=== PATIENT | female | born 1940 | race Caucasian/White ===

== ENCOUNTER 2023-08-13 15:28 | Emergency (ER) | payer OTHER, SELFPAY ==
[2023-08-13 15:43] VITALS: BP 190/85
--- NOTE | 2023-08-13 17:11 | ED.GENMED ---
History of Present Illness
General
Chief Complaint: Skin Surface Trauma
Source: patient
Exam Limitations: none
Time Seen by Provider: 08/13/23 16:47
Nursing documentation reviewed up to this point in time: agreed with
Travel History
Have you had any contact with someone who has COVID-19?: No
Do you have any symptoms of coronavirus? Fever > 100 degrees, chills, cough, shortness of breath, sore throat, loss of taste or smell, muscle aches, or headache?: No
History of Present Illness
History of Present Illness:
pt is a 83 y/o F with h/o lymphedema, dvt, on eliquis
here with right lower leg laceration a few hours ago when she scraped her leg getting into the car
she has a laceration to the lower leg that was oozing because ofthe edema
she went to urgent care where they said they were worried about closing it causing more oozing and bleeding becuase o maximino thinners and sent her here
tetanus is unknown
no pain
bleeding controlled now
Past History
Past History
ED Past Medical History: Arrthythmia, HTN and Hypothyroidism
Social History
Tobacco: Non-smoker
Alcohol: None
Drug: None
Personal:
Living: alone
Review of Systems
Review of Systems
Allergies reviewed?: Yes
All Other Systems: Not applicable
Phy Exam
Physical Exam
Physical Exam:
GENERAL: Alert , in no apparent distress
CARDIAC: Regular rate and rhythm lymphedema b/l LE;
LUNGS: Clear breath sounds bilaterally, no acute respiratory distress, no wheezes/rales/rhonchi
ABDOMEN: Soft, without focal tenderness, no r/g, no cvat
NEUROLOGICAL: Alert and oriented, no focal neuro deficits, CN intact, 5/5 strength, sensation intact
SKIN: Warm and dry,
arc shaped laceratino to righ tlower leg anterior approx 4 cm no bleeding
MUSCULOSKELETAL: lymph edema, well perfused.
PSYCH: Normal and appropriate interaction.
Course
Orders/Labs/Results
Orders:
Orders
08/13/23 17:08
Tetanus/Diphth/Acelpertussis [Adacel] 0.5 ml IM .ONCE ONE
Vital Signs
Initial and Last Documented VS:
Initial Vital Signs
Temp Pulse Resp BP Pulse Ox
98.2 F 78 20 190/85 98
08/13/23 15:43 08/13/23 15:43 08/13/23 15:43 08/13/23 15:43 08/13/23 15:43
Last Documented Vital Signs
Temp Pulse Resp BP Pulse Ox
98.2 F 78 20 190/85 98
08/13/23 15:43 08/13/23 15:43 08/13/23 15:43 08/13/23 15:43 08/13/23 15:43
Procedures
Laceration Closure
Right Lower Leg:
Status of Wound: clean
Description of Wound Edges: sharp and flap-poorly vascularized
Preparation: cleaned with saline
Anesthesia: 1% Lidocaine with epi
Revision/Debridement: routine- no revision
Type of Closure: single layer closure
Skin Closure Material: 5-0 nylon
Number of sutures: 8
MDM/Problems Addressed
Differential Diagnosis Includes:
laceration, contusion, lymphedema
MDM/Problems Addressed:
83 y/o F with right lower extremity laceration from a door today
had some bleeding and leakage from the leg; controlled
pt was sent by because they were concerned about pt's potential bleeding because of thinners
pt's wound cleaned, anesthetized and closed with sutures
she did tolerate well
no post procedure bleeding
but given her lymphedema, i did put a koban dressing on it to be left on for 1 hour and then remove at home
f/u wound center as needed
high risk for poor healing because of her lypmhedema,.
*Critical Care Note
Total Time (30-74mins, 75-104mins- exclusive of procedures): Not Applicable
ED Attending Note
-
Portions of this chart may have been created with voice recognition software.� Occasional wrong word or��sound alike� substitutions may have occurred due to the inherent limitations of voice recognition software.
Discharge Plan
Departure
Patient Disposition: Home (Routine Discharge)
Date of Disposition: 08/13/23
Time of Disposition: 17:51
Patient with high blood pressure during this ER visit?: Yes
Condition: Fair
Covid-19: Not Applicable
Discharge Problem:
Laceration of leg
Instructions: Laceration Repair With Stitches (DC), BLOOD PRESSURE
Prescriptions:
No Action
polyethylene glycol 3350 [Miralax] 17 gram Powder In Packet
8.5 g PO DAILY
clonazepam 1 mg Tablet
1 mg PO HS
atenolol 25 mg Tablet
12.5 mg PO DAILY
hydralazine 25 mg Tablet
25 mg PO BID
acetaminophen 500 mg Tablet
1,000 mg PO Q6H PRN (Reason: leg PAIN)
levothyroxine 75 mcg Tablet
75 mcg PO DAILY AT 0700
fenofibrate 160 mg Tablet
160 mg PO DAILY
cholecalciferol (vitamin D3) [Vitamin D3] 125 mcg (5,000 unit) Tablet
125 mcg PO TH
Eliquis 2.5 mg Tablet
2.5 mg PO BID
[place] Tears
1 drp BOTH EYES HS
nifedipine 30 mg Tablet Extended Release
30 mg PO BID Qty: 60 0RF
furosemide [Lasix] 20 mg Tablet
20 mg PO DAILY
therapeutic multivitamin Tablet
1 tab PO DAILY
lovastatin 10 mg Tablet
10 mg PO DAILY
Referrals:
Topkis,Owen L., DO [Family Provider] - Follow up in 10 days (SUTURE REMOVAL IN 10-14 DAYS)
Activity Restrictions/Additional Instructions:
KEEP THE WOUND CLEAN AND DRY FOR 48 hours
AFTER THAT YOU CAN GET IT WET IN THE BATH/SHOWER ONCE A DAY AND MAKE SURE IT IS CLEAN AND THERE IS NO DRIED BLOOD ON THE STITCHES
APPLY NEOSPORIN AND A BANDAID
THE STITCHES NEED TO BE REMOVED IN ABOUT 10-14 DAYS, SEE YOUR DOCTOR FOR THIS.
THE LAST DAY BEFORE STITCHES OUT, NO OINTMENT, LEAVE OPEN TO AIR
WATCH FOR SIGNS OF INFECTION AND RETURN NEEDED FOR PAIN, SWELLING, REDNESS, DRAINAGE, BLEEDING.
TYLENOL NEEDED FOR PAIN.
Interventions
Interventions:
*Risk Screen - Suicide Last Done: 08/13/23 15:43
*General Assessment Last Done: 08/13/23 15:43
*Neglect/Abuse Screening Last Done: 08/13/23 15:43
*ED COVID-19 Vaccine History Last Done: 08/13/23 17:55
*Nursing Disposition Last Done: 08/13/23 18:49
ED-Skin Assessment Last Done: 08/13/23 16:46
Discharge Date and Time
Discharge Date/Time: 08/13/23 18:50
[2023-08-13] MEDS: ADACEL 0.5 ML IM (18:05)
== END 2023-08-13 18:50 | disposition home or self-care (01) ==
LOC: EMR 15:28
PROVIDERS: EMERGENCY PHYSICIAN Student in an Organized Health Care Education/Training Program; FAMILY PHYSICIAN Family Medicine
DX: S81.811A Laceration without foreign body, right lower leg, initial encounter (principal); W22.8XXA Striking against or struck by other objects, initial encounter; Z79.01 Long term (current) use of anticoagulants; Z23 Encounter for immunization
CPT/HCPCS: 99281; 90471; 90715

== ENCOUNTER 2024-03-27 22:59 | Inpatient (IN) | payer OTHER, SELFPAY ==
[2024-03-27 18:23] VITALS: BMI 43.9
--- NOTE | 2024-03-27 19:17 | ED.GENMED ---
History of Present Illness
<Hailey Duron MD, Resident - Last Filed: 03/27/24 21:31>
General
Chief Complaint: Weakness
Source: patient
Time Seen by Provider: 03/27/24 18:40
History of Present Illness
History of Present Illness:
Patient is an 83 yo female with PMH of PE on presenting with increasing weakness and shakiness after having flu and COVID shot on Friday. She also c/o feeling drowsy since. Patient mentions she had difficulty getting her feet of the
ground when walking with cane. Denies fever, cough, SOB or CP. Denies any GI symptoms. Denies urinary symptoms. Appetite is normal and she is drinking sufficient liquids but states she had similar symptoms in the past when she was found to be
dehydrated. Denies headaches. Denies lightheadedness.
She was diagnosed with hypothyroidism last February but has not been taking medications.
Past History
<Hailey Duron MD, Resident - Last Filed: 03/27/24 21:31>
Past History
ED Past Medical History: HTN, Hypothyroidism and Other (history of DVT and P/E in past, pre-diabetic, lymphedema)
Social History
Tobacco: Non-smoker
Alcohol: None
Drug: None
Personal:
Living: alone
Review of Systems
<Hailey Duron MD, Resident - Last Filed: 03/27/24 21:31>
Review of Systems
Allergies reviewed?: Yes
All Other Systems: ROS reviewed and negative except as documented in HPI and ROS
Phy Exam
<Hailey Duron MD, Resident - Last Filed: 03/27/24 21:31>
General Physical Exam
General Presentation: mild distress
Cardiovascular Exam
Cardiovascular Exam: regular rate/rhythm, no JVD and no murmur
Pulmonary Exam
Pulmonary Exam: lungs clear, no respiratory distress, no crackles and no wheezing
Gastrointestinal Exam
Gastrointestinal Exam: normal bowel sounds, non tender, soft and non distended
Neurological Exam
Neurological Exam: alert and oriented x3
Musculoskeletal Exam
Musculoskeletal Exam: edema (chronic lymphedema) and other (no signs of acute cellulitis)
Course
<Hailey Duron MD, Resident - Last Filed: 03/27/24 21:31>
Orders/Labs/Results
Orders:
Orders
03/27/24 19:35
0.9% Sodium Chloride 500 ml [Nss] 500 ml IV BOLUS
03/27/24 19:49
Complete Blood Count/With Diff Urgent
Comprehensive Metabolic Panel Urgent
Free T4 Urgent
TSH Reflex To Free T4 Urgent
03/27/24 20:02
Lactic Acid Urgent
Blood Culture Routine
SKIP Source: Blood/Venous
Specimen Description:
Blood Culture Urgent
SKIP Source: Blood/Venous
Specimen Description:
Abnormal Lab Results
03/27/24
19:49
Hgb 11.3 L g/dL
(12.0-16.0)
Hct 34.8 L %
(37.0-47.0)
MCH 26.8 L pg
(27.0-31.0)
MCHC 32.5 L g/dL
(33.0-37.0)
RDW 15.3 H %
(11.5-14.5)
MPV 12.1 H fL
(7.4-10.4)
BUN 67 H mg/dl
(7-17)
Creatinine 1.8 H mg/dL
(0.6-1.0)
Calcium 10.6 H mg/dl
(8.4-10.2)
AST 45 H U/L
(14-36)
TSH (Reflex) 0.15 L uIU/ml
(0.47-4.68)
03/27/24 19:49
03/27/24 19:49
Vital Signs
Temp: 92.5 F (rectal)
Pulse: 62
Resp Rate: 20
Initial and Last Documented VS:
Initial Vital Signs
Pulse Resp Pulse Ox
62 20 99
03/27/24 19:20 03/27/24 19:20 03/27/24 19:20
Last Documented Vital Signs
Temp Pulse Resp BP Pulse Ox
92.5 F L 55 17 159/54 95
03/27/24 19:58 03/27/24 21:15 03/27/24 20:45 03/27/24 21:00 03/27/24 21:15
<Shawn Connell, DO - Last Filed: 03/27/24 21:56>
Orders/Labs/Results
Orders:
Orders
03/27/24 19:35
0.9% Sodium Chloride 500 ml [Nss] 500 ml IV BOLUS
03/27/24 19:49
Complete Blood Count/With Diff Urgent
Comprehensive Metabolic Panel Urgent
Free T4 Urgent
TSH Reflex To Free T4 Urgent
03/27/24 20:02
Lactic Acid Urgent
Blood Culture Routine
SKIP Source: Blood/Venous
Specimen Description:
Blood Culture Urgent
SKIP Source: Blood/Venous
Specimen Description:
Abnormal Lab Results
03/27/24
19:49
Hgb 11.3 L g/dL
(12.0-16.0)
Hct 34.8 L %
(37.0-47.0)
MCH 26.8 L pg
(27.0-31.0)
MCHC 32.5 L g/dL
(33.0-37.0)
RDW 15.3 H %
(11.5-14.5)
MPV 12.1 H fL
(7.4-10.4)
BUN 67 H mg/dl
(7-17)
Creatinine 1.8 H mg/dL
(0.6-1.0)
Calcium 10.6 H mg/dl
(8.4-10.2)
AST 45 H U/L
(14-36)
TSH (Reflex) 0.15 L uIU/ml
(0.47-4.68)
03/27/24 19:49
03/27/24 19:49
Vital Signs
Blood pressure: 173/55
Initial and Last Documented VS:
Initial Vital Signs
Pulse Resp Pulse Ox
62 20 99
03/27/24 19:20 03/27/24 19:20 03/27/24 19:20
Last Documented Vital Signs
Temp Pulse Resp BP Pulse Ox
92.5 F L 55 17 159/54 95
03/27/24 19:58 03/27/24 21:15 03/27/24 20:45 03/27/24 21:00 03/27/24 21:15
<Hailey Duron MD, Resident - Last Filed: 03/27/24 21:31>
*Critical Care Note
Total Time (30-74mins, 75-104mins- exclusive of procedures): 30
ED Attending Note
<Hailey Duron MD, Resident - Last Filed: 03/27/24 21:31>
-
Portions of this chart may have been created with voice recognition software.� Occasional wrong word or��sound alike� substitutions may have occurred due to the inherent limitations of voice recognition software.
<Shawn Connell DO - Last Filed: 03/27/24 21:56>
ED Attending Note
Patient seen and examined by attending physician: Yes
I performed a history and physical exam of patient and discussed management with resident, I reviewed resident's note and agree with documented findings and plan of care.: Yes
ED Attending Note:
I evaluated the patient at bedside. The patient appears generally weak and debilitated. Her white count is normal but she is found to be hypothermic rectally with a temp of 92.5 �F. She states that she feels dehydrated. She was given IV fluids.
Discharge Plan
Departure
Prescriptions:
No Action
polyethylene glycol 3350 [Miralax] 17 gram Powder In Packet
8.5 g PO DAILY
clonazepam 1 mg Tablet
1 mg PO HS
hydralazine 25 mg Tablet
25 mg PO BID
acetaminophen 500 mg Tablet
1,000 mg PO Q6H PRN (Reason: leg PAIN)
levothyroxine 75 mcg Tablet
75 mcg PO DAILY AT 0700
fenofibrate 160 mg Tablet
160 mg PO DAILY
cholecalciferol (vitamin D3) [Vitamin D3] 125 mcg (5,000 unit) Tablet
125 mcg PO TH
Eliquis 2.5 mg Tablet
2.5 mg PO BID
[place] Tears
1 drp BOTH EYES HS
nifedipine 30 mg Tablet Extended Release
30 mg PO BID Qty: 60 0RF
furosemide [Lasix] 20 mg Tablet
20 mg PO DAILY
therapeutic multivitamin Tablet
1 tab PO DAILY
lovastatin 10 mg Tablet
10 mg PO DAILY
Referrals:
UNKNOWN - PT DOES,NOT KNOW [Family Provider] -
Interventions
Interventions:
*General Assessment Last Done: 03/27/24 18:30
ED- Fall Risk Assessment Last Done: 03/27/24 19:32
*ED COVID-19 Vaccine History Last Done: 03/27/24 18:30
ED- Cardiac Assessment Last Done: 03/27/24 19:21
ED- Neurological Assessment Last Done: 03/27/24 19:21
ED- Pulmonary Assessment Last Done: 03/27/24 19:21
Discharge Date and Time
Print Language: [place]
[2024-03-27 20:00] VITALS: BP 165/54
[2024-03-27] MEDS: NSS 500 IV (20:05)
[2024-03-27 20:09] LABS: % Basophils 0.4 % (0-2); % Eosinophils 1.6 % (0-6); % Immature Granulocytes 0.2 % (0-0.5); % Lymphocytes 27.5 % (20.5-51.1); % Monocytes 8.1 % (1.7-9.3); % Neutrophils 62.2 % (42.2-75.2); Absolute Eosinophils 0.1 10^3/uL (0-0.7); Absolute Lymphocytes 1.5 10^3/uL (1.2-3.4); Absolute Monocytes 0.5 10^3/uL (0.1-0.6); Absolute Neutrophils 3.5 10^3/uL (1.4-6.5); Hematocrit 34.8 % (37.0-47.0); Hemoglobin 11.3 g/dL (12.0-16.0); Mean Corp Hgb Conc. 32.5 g/dL (33.0-37.0); Mean Corpuscular Hgb 26.8 pg (27.0-31.0); Mean Corpuscular Volume 82.7 fL (81.0-99.0); Mean Platelet Volume 12.1 fL (7.4-10.4); Nucleated Red Blood Cells % 0 %; Platelet Count 205 10^3/uL (130-400); Red Blood Cell Count 4.21 10^6/uL (4.20-5.40); Red Cell Dist. Width 15.3 % (11.5-14.5); White Blood Cell Count 5.6 10^3/uL (4.8-10.8)
[2024-03-27 20:30] LABS: Lactic Acid 0.8 mmol/L (0.7-2.0)
[2024-03-27 20:32] LABS: ALT (SGPT) 25 U/L (0-35); AST (SGOT) 45 U/L (14-36); Albumin 4.3 g/dl (3.5-5.0); Alkaline Phosphatase 71 U/L (38-126); Blood Urea Nitrogen 67 mg/dl (7-17); Calcium 10.6 mg/dl (8.4-10.2); Carbon Dioxide 25 mmol/L (22-30); Chloride 104 mmol/L (98-107); Estimated Creatinine Clearance 30 ml/min; Glucose 92 mg/dl (70-99); Potassium 4.7 mmol/L (3.5-5.1); Sodium 144 mmol/L (135-145); Total Bilirubin 0.2 mg/dl (0.2-1.3); Total Protein 7.2 g/dl (6.3-8.2); eGFR 27.78
[2024-03-27 21:00] VITALS: BP 159/54
[2024-03-27 21:03] LABS: TSH Reflex To Free T4 0.15 uIU/ml (0.47-4.68)
[2024-03-27 21:48] LABS: Free T4 1.48 ng/dl (0.78-2.19)
[2024-03-27 22:00] VITALS: BP 161/58
[2024-03-27 22:09] LABS: Urine Albumin Negative (Neg - Trace); Urine Bilirubin Negative (Negative); Urine Character Clear (Clear); Urine Color Straw; Urine Glucose Negative (Negative); Urine Ketone Negative (Negative); Urine Leukocyte Negative (Negative); Urine Nitrite Negative (Negative); Urine Occult Blood Negative (Negative); Urine Urobilinogen Negative (Neg - 1+)
--- NOTE | 2024-03-27 22:41 | HPS.HSE ---
Addendum entered and electronically signed by Mega Crisostomo MD 03/27/24 23:16:
Hypercalcemia - asymptomatic
DDX: dehydration, secondary hyperparathyroidism
- IVF
- Observe Ca in AM
Addendum entered and electronically signed by Mega Crisostomo MD 03/27/24 23:06:
As per patient : DNR in the presence of son at bed side
Original Note:
Family Physician
-
Family Physician: NOT KNOW UNKNOWN - PT DOES
Chief Complaint
-
weakness
History of Present Illness
83F DVT and P/E , on Eliquis , pre-diabetic, chr Zelda lymphedema, recent Flu and Covid vax on Wed(03/24/24) seen at ER for
- increasing weakness and chills and rigors
- associated with lethargy
- associated with acute ambulatory dysfunction
Denies fever, cough, SOB or CP. Denies any GI symptoms. Denies urinary symptoms.
Medical History
Past Medical History
Past Medical History: Reports Other (Arrhythmia, HTN and Hypothyroidism, CKD3b, Class III Obesity (BMI 44)HX PE/DVT of Lt Zelda)
Past Surgical History: Reports Other
Social History
Tobacco: Non-smoker
Alcohol: None
Drug: None
Family History
Family History: Not pertinent
Allergies / Home Medications
Allergies reflects when Allergies were last updated in [facility].
Home Medications with original date entered in [facility]
Allergy/Medication List:
Allergies
Allergy/AdvReac Type Severity Reaction Status Date / Time
codeine Allergy Nausea Verified 07/08/23 01:14
ondansetron Allergy Unknown Verified 07/08/23 01:14
Penicillins Allergy Unknown Verified 07/08/23 01:14
prochlorperazine Allergy Unknown Verified 07/08/23 01:14
[From Compazine]
sertraline Allergy Nausea Verified 07/08/23 01:14
Home Medications
[place] Tears 1 drp BOTH EYES HS dry eyes 03/03/23
acetaminophen 500 mg tablet 1,000 mg PO Q6H PRN PAIN 03/03/23
apixaban 2.5 mg tablet (Eliquis) 2.5 mg PO BID Blood Clot Prevention/Tx 03/03/23
atenolol 25 mg tablet 25 mg PO DAILY Blood Pressure 03/03/23
cholecalciferol (vitamin D3) 125 mcg (5,000 unit) tablet (Vitamin D3) 125 mcg PO WEEKLY Supplement 03/03/23
clonazepam 1 mg tablet 1 mg PO HS Mental Health/Anxiety 03/03/23
fenofibrate 160 mg tablet 160 mg PO DAILY High Cholesterol 03/03/23
hydralazine 25 mg tablet 25 mg PO BID Blood Pressure 03/03/23
levothyroxine 75 mcg tablet 75 mcg PO DAILY AT 0700 Thyroid 03/03/23
loratadine 5 mg disintegrating tablet 5 mg PO DAILY Allergies 03/03/23
lovastatin 10 mg tablet 10 mg PO DAILY High Cholesterol 03/03/23
multivitamin with calcium carb and iron tablet 10,000 tab PO DAILY Supplement 03/03/23
kkqejghtkopx-ghvnfhtg-uzlmri tablet 1 tab PO DAILY Supplement 03/03/23
omega-3 fatty acids 1 cap PO DAILY Supplement 03/03/23
polyethylene glycol 3350 17 gram oral powder packet (Miralax) 17 g PO DAILY Constipation 03/03/23
cephalexin 750 mg capsule 750 mg PO BID 4 days #8 caps 03/06/23
furosemide 40 mg tablet (Lasix) 40 mg PO DAILY #5 tabs 03/06/23
nifedipine 30 mg tablet,extended release 30 mg PO BID #60 tabs 03/06/23
Review of Systems
-
Constitutional: Reports See HPI, Fatigue and Chills
EENT: Reports No Symptoms
Respiratory: Reports No Symptoms
Cardiac: Reports No Symptoms
Abdomen/GI: Reports No Symptoms
: Reports No Symptoms
Musculoskeletal: Reports No Symptoms
Skin: Reports See HPI
Neurological: Reports No Symptoms and Weakness
Endocrine: Reports No Symptoms
Hematologic/Lymphatic: Reports No Symptoms
Psych: Reports No Symptoms
Physical Exam
Vital Signs
Vital Signs
Temp Pulse Resp BP Pulse Ox
92.5 F L 55 17 159/54 95
03/27/24 19:58 03/27/24 21:15 03/27/24 20:45 03/27/24 21:00 03/27/24 21:15
Physical Exam
General: Well Developed, Well Nourished and No Apparent Distress
HEENT: NormoCephalic, Moist mucous membranes and Atraumatic
Respiratory: Clear
Cardiac: S1/S2 and Regular Rhythm; No Murmur or Rub
GI: Soft, Non Tender, Non Distended and Normal Bowel Sounds; No Organomegaly
Rectal: Deferred by Provider
Musculoskeletal: No Clubbing, No Cyanosis and Other (chr venous stasis , chr lymphedema )
Skin: No Rash
Neuro: Nonfocal/grossly intact
Psych: Calm
Laboratory Results
-
03/27/24 19:49
03/27/24 19:49
Laboratory Results
Lactic Acid 0.8 mmol/L (0.7-2.0) 03/27/24 20:02
Total Bilirubin 0.2 mg/dl (0.2-1.3) 03/27/24 19:49
AST 45 U/L (14-36) H 03/27/24 19:49
ALT 25 U/L (0-35) 03/27/24 19:49
Alkaline Phosphatase 71 U/L (38-126) 03/27/24 19:49
Data Reviewed
-
Lab Data: Labs Reviewed by me
Old Records: Reviewed
Impression/Plan
-
Vital Signs
Temp Pulse Resp BP Pulse Ox
92.5 F L 55 17 159/54 95
03/27/24 19:58 03/27/24 21:15 03/27/24 20:45 03/27/24 21:00 03/27/24 21:15
Abnormal Lab Results
03/27/24
19:49
Hgb 11.3 L
Hct 34.8 L
MCH 26.8 L
MCHC 32.5 L
RDW 15.3 H
MPV 12.1 H
BUN 67 H
Creatinine 1.8 H
Calcium 10.6 H
AST 45 H
TSH (Reflex) 0.15 L
Last hospitalist admission:
Date of Admission: 07/08/23 -Date of Discharge: 07/14/23
DC Dxs
Hypothermia
Lymphedema
Chronic kidney disease
Ambulatory dysfunction
ASSESSMENT & PLAN
Hypothermia: DDX: SIRS / Sepsis vs Hypothyroid
NEG UA
HX PCN allergy but tolerate IV Cefazolin
- check PCT
- CXR
- BCx sent
- Hold off ABx
- warming blanket
Lethargy suspect encephalopathy - TME
associated with acute gait dysfunction
DDX : infective vs metabolic ( hypothyroid ) vs Clonazepam
- f/u mentation with above mesures
- c/w Clonazepam
- PT/OT weakness weakness, lethargy
- fall precaution
Low TSH . Nl free T4 with sinus joan : Not on BB
DDX: Sick euthyroid vs. untreated hyperthyroid vs overtreated hypothyroid
- FT3
- EKG to evaluate conduction abn
LUIS M - prerenal
HX CKD3b
- avoid NSAIDs and contrast study
HX PE/DVT of Lt Zelda
- On chronic Eliquis
- on Atenolol
will continue low dose Atenolol and follow, though put hold parameters for heart rate
Essential HTN
- c/w Hydralazine
- c/w Atenolol, Procardia
HLD
- on Fenofibrate and Lovastatin
Hypothyroid - Nl TSH
- on LT4
BMI 44 c/w Class III obesity 2/2 protein calorie excess
DVT Px: on chr Eliquis
Full code
IP TLM
[2024-03-27 23:00] VITALS: BP 166/60
[2024-03-27 23:38] LABS: Free T3 2.59 pg/ml (2.77-5.27)
[2024-03-28] VITALS (9 sets, daily range): BP systolic 126–172; BP diastolic 43–105; BMI 42.6
[2024-03-28 00:13] LABS: Procalcitonin < 0.05 ng/ml (0.0-0.25)
--- NOTE | 2024-03-28 00:15 | PTCARENOTE ---
Patient arrived to unit from ED via stretcher, warming blanket in place on patient upon arrival to be connected to warming machine. Patient alert and oriented, c/o chronic back pain that is present at this time with movement from stretcher to bed.
Pulled to bed with assist of 4 person, patient unable to offer assistance in transfer. Face flushed and skin red/warm. Upon arrival to unit, initial rectal temperature 94.0F. Shelby hugger connected and reached goal temperature, now 97.0F rectal, and
warming therapy stopped at 0230AM. Initiated on color television console monitor #13 - HR joan with first degree block present, BBBC, prolonged QT. Patient states all of her family are currently out of town, patient resides in [place] where she lives alone and
called EMS due to progressive weakness and with chills/rigors. Satting well on room air. Connected to [employer], in place from ED -- device changed upon arrival. Patient is verbalizing understanding of call barbosa use, call barbosa in reach, will monitor.
[2024-03-28 04:29] LABS: Hematocrit 31.1 % (37.0-47.0); Hemoglobin 10.4 g/dL (12.0-16.0); Mean Corp Hgb Conc. 33.4 g/dL (33.0-37.0); Mean Corpuscular Hgb 27.5 pg (27.0-31.0); Mean Corpuscular Volume 82.3 fL (81.0-99.0); Mean Platelet Volume 12.2 fL (7.4-10.4); Platelet Count 193 10^3/uL (130-400); Red Blood Cell Count 3.78 10^6/uL (4.20-5.40); Red Cell Dist. Width 15.5 % (11.5-14.5); White Blood Cell Count 3.9 10^3/uL (4.8-10.8)
[2024-03-28 04:56] LABS: ALT (SGPT) 22 U/L (0-35); AST (SGOT) 39 U/L (14-36); Albumin 3.8 g/dl (3.5-5.0); Alkaline Phosphatase 56 U/L (38-126); Blood Urea Nitrogen 61 mg/dl (7-17); Calcium 9.9 mg/dl (8.4-10.2); Carbon Dioxide 25 mmol/L (22-30); Chloride 108 mmol/L (98-107); Estimated Creatinine Clearance 30 ml/min; Glucose 65 mg/dl (70-99); Phosphorus 3.2 mg/dl (2.5-4.5); Potassium 4.7 mmol/L (3.5-5.1); Sodium 146 mmol/L (135-145); Total Bilirubin 0.2 mg/dl (0.2-1.3); Total Protein 6.3 g/dl (6.3-8.2); eGFR 27.78
[2024-03-28 06:30] LABS: Glucose - Point of Care 74 mg/dl (70-99)
--- NOTE | 2024-03-28 06:38 | PTCARENOTE ---
Patient with complaint that legs are numb b/l from the waist down -- patient states this is new for her and that she has not experienced this before. Patient also mentioning that her weakness is more profound. Legs with chronic lymphedema --
baseline per patient. Notified WALKER Sanches -- lab glucose came back at 65, request to check fingerstick glucose that came back at 74. 4 oz juice provided to patient -- will monitor.
--- NOTE | 2024-03-28 07:53 | W.PN.HOSP.TC ---
Today's Communication/Plan
-
MRI of the brain. CT of the head.
Assessment / Plan
Assessment / Plan
Physical exam:
General: Acute on chronically ill
HEENT: Normocephalic, Atraumatic and Moist Mucous Membranes
Respiratory: Clear to Auscultation; Negative Wheezes, Rales or Rhonchi
Cardiac: Regular Rhythm and S1/S2
GI: Soft, Nontender and Nondistended
Musculoskeletal: Lower back tenderness. No Clubbing, No Cyanosis and No Edema
Neuro: Awake, Alert and Oriented, significantly decreased lower extremity strength.
Psych: Calm
A/P:
Hypothermia:
Improved
Thyroid function abnormal but less likely contributing.
Blood sugar relatively low earlier this morning so could have been contributing.
No signs of infection but follow-up blood cultures
Updated [id number] over the phone today
Lower extremity weakness and back pain:
Unclear if related to recent vaccination vs deconditioning and meds vs ??stroke
Plan for lumbar MRI and ct head
Will request neurology consult for further advice
Toxic metabolic encephalopathy:
Improving
Okay to continue using benzodiazepines judiciously
LUIS M on CKD stage IIIb:
Might need fluids but hold off for now
Encourage oral intake
Nephrology eval
History of VTE:
Continue Eliquis
Hypertension:
Resume antihypertensives
Monitor blood pressure and adjust medications accordingly
Hyperlipidemia:
Continue home statins
Hypothyroidism:
Reduced thyroid dose given low TSH
Recheck TFT in 6 weeks
Obesity:
Lifestyle changes modification
DVT prophylaxis:
Eliquis
CODE STATUS:
DNR
Total time spent on today's encounter was 52 minutes which included time spent in counseling the patient/family regarding diagnosis and treatment plan as listed above, goals of care, and symptom management. Case was discussed with nursing staff,
specialists, and care coordinators/case management. All labs and imaging personally reviewed by me. Remainder the time spent in detailed review of previous records, lab data, imaging, and other medical provider documentation.
Anticipated Discharge: 24 - 48 hours
Subjective/Interval History
-
Date of Service: March 28, 2024
She is alert and able to answer all questions appropriately. Patient complains of profound lower extremity weakness and lower back pain as well. She had some urinary incontinence. Afebrile. Temperature improved.
Objective Data
-
Labs:
Laboratory Results
03/27/24 03/28/24
19:49 04:06
WBC 5.6 3.9 L
Hgb 11.3 L 10.4 L
Hct 34.8 L 31.1 L
Plt Count 205 193
Sodium 144 146 H
Potassium 4.7 4.7
Chloride 104 108 H
Carbon Dioxide 25 25
BUN 67 H 61 H
Creatinine 1.8 H 1.8 H
Glucose 92 65 L
Calcium 10.6 H 9.9
Total Bilirubin 0.2 0.2
AST 45 H 39 H
ALT 25 22
Alkaline Phosphatase 71 56
Vital Signs:
Vital Signs
Temp Pulse Resp BP Pulse Ox
97.0 F 72 14 161/65 95
03/28/24 03:29 03/28/24 03:29 03/28/24 03:29 03/28/24 03:29 03/28/24 03:29
I&O
03/27/24 03/28/24 03/29/24
06:59 06:59 06:59
Output Total 975 / 975
Balance -975 / -975
[2024-03-28] MEDS: TRICOR 145 MG PO (09:02)
[2024-03-28] MEDS: ELIQUIS 2.5 MG PO ×2 (09:03→21:21)
[2024-03-28] MEDS: MIRALAX 8.5 GRAMS PO (09:03)
[2024-03-28] MEDS: SYNTHROID 50 MCG PO (09:03)
[2024-03-28] MEDS: PROCARDIA XL (EXTENDED RELEASE) 30 MG PO ×2 (09:03→21:21)
[2024-03-28] MEDS: LIPITOR 10 MG PO (09:05)
--- NOTE | 2024-03-28 10:44 | W.CON.NEPH ---
Consultation
-
Date/Time Consultation Requested: 03/28/2024 9 AM
Date/Time Consultation Performed: 03/28/2020 4:10 AM
Requesting Provider: Dr. Crisostomo
Performing Provider: Dr. Verma
Reason for Consultation: LUIS M
Medical History
-
Chief Complaint: Weakness tremor
History of Present Illness:
This is an 83-year-old female with paroxysmal atrial fibrillation on Eliquis therapy for anticoagulation, hypertension on a multidrug regimen, hypothyroidism on Synthroid therapy. She has been in her usual state of health and stable until last week
around Friday when she received both the flu and the COVID-vaccine. The day after her vaccine she developed rigors back pain and tremors. This apparently worsened over the course of the week. Her oral intake was ultimately impacted by this as
well. She did not eat very much yesterday and slightly less the day before that. She ultimately came to the emergency room because of the tremors and weakness. She was noted to have mild acute kidney injury with a creatinine of 1.8 up from her
baseline of 1.6. 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
Past Medical History
Atrial fibrillation, hypertension, hypothyroidism, CKD 3B, obesity, history of PE DVT left lower leg
Social History
Tobacco: Non-Smoker
Alcohol: None
Family History
Family History: Not Pertinent
Allergies / Home Medications
Allergy/AdvReac Type Severity Reaction Status Date / Time
codeine Allergy Nausea Verified 08/13/23 15:43
erythromycin base Allergy Unknown Verified 03/27/24 18:34
ondansetron Allergy Unknown Verified 08/13/23 15:43
Penicillins Allergy Unknown Verified 08/13/23 15:43
prochlorperazine Allergy Unknown Verified 08/13/23 15:43
[From Compazine]
sertraline Allergy Nausea Verified 08/13/23 15:43
�Medication �Instructions �Recorded �Confirmed �Type
[place] Tears 1 drp BOTH EYES HS dry eyes 03/03/23 03/27/24 History
acetaminophen 500 mg tablet 1,000 mg PO Q6H PRN leg PAIN 03/03/23 03/27/24 History
apixaban 2.5 mg tablet (Eliquis) 2.5 mg PO BID Blood Clot 03/03/23 03/27/24 History
Prevention/Tx
cholecalciferol (vitamin D3) 125 125 mcg PO TH Supplement 03/03/23 03/27/24 History
mcg (5,000 unit) tablet (Vitamin
D3)
clonazepam 1 mg tablet 1 mg PO HS Mental Health/Anxiety 03/03/23 03/27/24 History
fenofibrate 160 mg tablet 160 mg PO DAILY High Cholesterol 03/03/23 03/27/24 History
hydralazine 25 mg tablet 25 mg PO BID Blood Pressure 03/03/23 03/27/24 History
levothyroxine 75 mcg tablet 75 mcg PO DAILY AT 0700 Thyroid 03/03/23 03/27/24 History
polyethylene glycol 3350 17 gram 8.5 g PO DAILY Constipation 03/03/23 03/27/24 History
oral powder packet (Miralax)
nifedipine 30 mg tablet,extended 30 mg PO BID #60 tabs 03/06/23 03/27/24 Rx
release
furosemide 20 mg tablet (Lasix) 20 mg PO DAILY Fluid 07/08/23 03/27/24 History
Retention/Swelling
lovastatin 10 mg tablet 10 mg PO DAILY High Cholesterol 07/08/23 03/27/24 History
therapeutic multivitamin 1 tab PO DAILY Supplement 07/08/23 03/27/24 History
Review of Systems
-
Weakness, tremors. Decreased appetite.
All other systems: Negative unless noted
Physical Exam
Vital Signs
Vital Signs
Temp Pulse Resp BP Pulse Ox
98.5 F 78 20 152/57 96
03/28/24 08:21 03/28/24 08:21 03/28/24 08:21 03/28/24 08:21 03/28/24 08:21
Lab Results
WBC 3.9 10^3/uL (4.8-10.8) L 03/28/24 04:06
RBC 3.78 10^6/uL (4.20-5.40) L 03/28/24 04:06
Hgb 10.4 g/dL (12.0-16.0) L 03/28/24 04:06
Hct 31.1 % (37.0-47.0) L 03/28/24 04:06
Plt Count 193 10^3/uL (130-400) 03/28/24 04:06
Sodium 146 mmol/L (135-145) H 03/28/24 04:06
Potassium 4.7 mmol/L (3.5-5.1) 03/28/24 04:06
Chloride 108 mmol/L (98-107) H 03/28/24 04:06
Carbon Dioxide 25 mmol/L (22-30) 03/28/24 04:06
BUN 61 mg/dl (7-17) H 03/28/24 04:06
Creatinine 1.8 mg/dL (0.6-1.0) H 03/28/24 04:06
eGFR 27.78 03/28/24 04:06
Glucose 65 mg/dl (70-99) L 03/28/24 04:06
Calcium 9.9 mg/dl (8.4-10.2) 03/28/24 04:06
Phosphorus 3.2 mg/dl (2.5-4.5) 03/28/24 04:06
Albumin 3.8 g/dl (3.5-5.0) 03/28/24 04:06
Laboratory Tests
07/13/23
06:58
Sodium 137
Creatinine 1.5 H
Physical Exam
Patient is awake alert oriented and in no distress. Mood and affect were pleasant, insight and judgment were good. Pupils are equal round and reactive to light, extraocular movements are intact, sclera were anicteric. Hearing was normal, ears and
nose are intact. Oropharynx was clear. Neck was supple with trachea midline and no thyromegaly. Heart was regular rate and rhythm without rubs. Lower extremities without edema. Lungs were clear to auscultation bilaterally and with normal
excursion. Abdomen was soft, nontender, with normal active bowel sounds, and no hepatosplenomegaly. Skin was without rash and with normal turgor.
Data Reviewed
-
Radiology: Image Personally Visualized and interpreted (Chest x-ray on 03/27/2024 by my reading shows no acute disease small left effusion)
Medical Tests (Nuc Med, Echo etc): Image Personally Visualized and interpreted (EKG on 03/27/2024 by reading shows sinus bradycardia first-degree AV block bifascicular block right bundle branch block and left anterior fascicular block)
Labs: Labs Reviewed by me
Old Records: Reviewed
Assessment/Plan
-
Assessment
Weakness
Tremor
Hypertension
Lymphedema
CKD 3B (1.6)
LUIS M
Hypernatremia
Decreased appetite
Obesity
Plan
We will check urine studies today
She may benefit from hypotonic IV fluids though her oral intake appears to be slowly improving
No fluid restriction will be instituted
Follow BMP
hold Lasix
[2024-03-28] MEDS: APRESOLINE 25 MG PO ×2 (12:57→21:20)
[2024-03-28] MEDS: TYLENOL 650 MG PO (12:57)
[2024-03-28 13:39] LABS: Osmolality Urine 470 mOsm/kg (300-900)
[2024-03-28 13:48] LABS: Urine Sodium 105 mmol/L (30-90)
--- NOTE | 2024-03-28 13:56 | CON.NEURO ---
Consultation
Order
Date of Consultation: 03/28/24
Requesting Provider: Francis Chung MD
Reason for Consult: Leg weakness
CC: 'Shaking '
HPI:This is an 83-year-old woman who presented to [facility] on March 27, 2024 with 'shaking '. According to the patient she has noted worsening of intermittent shaking in her arms as well progressive proximal leg weakness. .
Marcelino has a history of ambulatory dysfunction. She has been using a walker for many years and had difficulties arising from seated position. She has been utilizing bed rails, elevated toilet seat to assist with weakness. admits to
progressive change in her handwriting as well as intermittent sialorrhea and difficulties with turning in the bed. No reports of dysphagia, diplopia, weakness in the arms.
She did have flu and COVID vaccination on
ER VS: Temperature�33.6C, 173/55, 99 on room air
EKG�sinus bradycardia with fist AVB, QTc Int : 469 ms
PDMP:Clonazepam 1 Mg�90 tabs filled in on 03/02/2024
CT head�moderate atrophy, leukoaraiosis.
Labs: WBCs 5.6�3.9, hemoglobin 11.3�10.4, normal platelets, sodium, creatinine 1.8 (1.5 in June 2023), TSH 0.15, free T4�normal, unremarkable urinalysis
PMH: L3/L4 and L5/S1 DJD, A-FIb, HTN, hypothyroidism, CKD, history of PE/DVT, A-Fib, HTN, BMI 42, PRINCESS
PSH: Bilateral cataract surgery
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
All:Compazine, sertraline, penicillins, ondansetron, erythromycin, codeine
ROS: Positive for imbalance, shuffling gait, micrographia, tremor in the hands, proximal weakness, radicular right leg pain, sialorrhea, chronic urinary incontinence, leg swelling and allodynia
General: Well developed. In no acute distress.
Cardio: Regular rate and rhythm without murmur. Extremities are without cyanosis or edema.
Neuro:
Mental Status: Alert, oriented to person, place, and date. Impaired attention can relatively preserved comprehension. Increased processing time. No hemineglect.
Cranial Nerves: . Pupils are equally round, surgical. EOMs full. Visual washburn full to confrontation. No ptosis. No nystagmus. V1-V3 intact to light touch and pinprick bilaterally, symmetric. Face symmetric. Normal hearing AU. The palate
elevated well. SCMs and traps 5/5. Tongue midline. No dysarthria.
Motor: Increased motor tone with cogwheeling left greater than right. Severe proximal leg weakness. No weakness in the upper extremities on neck muscles.
Reflexes: 3+ in upper extremities, negative Carlos's bilaterally. Limited exam due to severe edema and allodynia in lower extremities.
Sensory: Reduced vibration at the toes.
Coordination: Mild postural hand tremor.
Gait: deferred
Assessment and Plan:
I. Parkinsonism
II. Chronic progressive proximal leg weakness.
III. Distal symmetric polyneuropathy. 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
-Telemetry monitoring
-PT
-Brain and LS spine MRI without princess
-Sinemet trial 25/101 tablet every 8 hours during wakefulness.
-Please check vitamin B12, thiamine, SPEP, ESR, CRP.
-Limited utility of nerve conduction studies however EMG can be indicated to rule out active denervation.
-Please notify if on-call neurologist if any clinical change is reported.
I personally reviewed all radiology and labs along with past medical records pertinent to current medical problems. Total time spent in patient care is 60 minutes.
Thank you for allowing us to participate in the care of this patient. We will continue to follow. Please do not hesitate to contact us with any questions or concerns.
Subjective/Objective
Subjective Data
Date of Service: March 28, 2024
Objective Data
Vital Signs
Temp Pulse Resp BP Pulse Ox
36.6 C 73 19 130/43 91
03/28/24 12:44 03/28/24 12:44 03/28/24 12:44 03/28/24 12:44 03/28/24 12:44
Lab Results
03/28/24 04:06
03/28/24 04:06
Sodium 146 mmol/L (135-145) H 03/28/24 04:06
Potassium 4.7 mmol/L (3.5-5.1) 03/28/24 04:06
BUN 61 mg/dl (7-17) H 03/28/24 04:06
Glucose 65 mg/dl (70-99) L 03/28/24 04:06
Calcium 9.9 mg/dl (8.4-10.2) 03/28/24 04:06
Phosphorus 3.2 mg/dl (2.5-4.5) 03/28/24 04:06
Patient Allergies
codeine Allergy (Verified 08/13/23 15:43)
Nausea
erythromycin base Allergy (Verified 03/27/24 18:34)
Unknown
ondansetron Allergy (Verified 08/13/23 15:43)
Unknown
Penicillins Allergy (Verified 08/13/23 15:43)
Unknown
prochlorperazine [From Compazine] Allergy (Verified 08/13/23 15:43)
Unknown
sertraline Allergy (Verified 08/13/23 15:43)
Nausea
Medications
-
Active Medications
Generic Name Dose Route Start Last Admin
Trade Name Freq PRN Reason Stop Dose Admin
Acetaminophen 650 mg 03/28/24 12:21 03/28/24 12:57
Acetaminophen 325 Mg Tablet PO 04/25/24 12:20 650 mg
Q6HPRN PRN Administration
mild pain/ fever>100.5F
Apixaban 2.5 mg 03/28/24 08:00 03/28/24 09:03
Apixaban (Eliquis) 2.5 Mg Tablet PO 04/25/24 07:59 2.5 mg
BID HATTIE Administration
Atorvastatin Calcium 10 mg 03/28/24 08:00 03/28/24 09:05
Atorvastatin (Lipitor) 10 Mg Tablet PO 04/25/24 07:59 10 mg
DAILY HATTIE Administration
Bisacodyl 10 mg 03/28/24 00:03
Bisacodyl 10 Mg Rectal Suppository RECTAL 04/25/24 00:02
[id number] PRN
constipation
Clonazepam 1 mg 03/28/24 22:00
Clonazepam 1 Mg Tablet PO 04/25/24 21:59
HS HATTIE
Dextrose 12.5 grams 03/28/24 06:15
Dextrose 50% (0.5 Grams/Ml) 50 Ml Syringe IV 04/25/24 06:14
[id number] PRN
hypoglycemia
Protocol
Fenofibrate 145 mg 03/28/24 08:00 03/28/24 09:02
Fenofibrate 145 Mg Tablet PO 04/25/24 07:59 145 mg
DAILY HATTIE Administration
Glucagon 1 mg 03/28/24 06:15
Glucagon 1 Mg Vial IM 04/25/24 06:14
PRN PRN
hypoglycemia
Protocol
Hydralazine HCl 25 mg 03/28/24 11:00 03/28/24 12:57
Hydralazine 25 Mg Tablet PO 04/25/24 10:59 25 mg
BID HATTIE Administration
Levothyroxine Sodium 50 mcg 03/28/24 06:00 03/28/24 09:03
Levothyroxine 50 Mcg Tablet PO 04/25/24 05:59 50 mcg
DAILY @ 0600 HATTIE Administration
Nifedipine 30 mg 03/28/24 08:00 03/28/24 09:03
Nifedipine 30 Mg Extended Release Tablet PO 04/25/24 07:59 30 mg
BID HATTIE Administration
Polyethylene Glycol 8.5 grams 03/28/24 08:00 03/28/24 09:03
Polyethylene Glycol Powder 17 Grams Packet PO 04/25/24 07:59 8.5 grams
DAILY HATTIE Administration
Polyethylene Glycol 17 grams 03/28/24 00:03
Polyethylene Glycol Powder 17 Grams Packet PO 04/25/24 00:02
DAILYPRN PRN
constipation
Senna/Docusate Sodium 1 tablet 03/28/24 00:03
Docusate W/Senna (Sisi-Colace) Tablet PO 04/25/24 00:02
BIDPRN PRN
constipation
Sodium Chloride 0 flush 03/27/24 23:00
Sodium Chloride 0.9% (Flush) Syringe IV 04/24/24 22:59
PER PROTOCOL HATTIE
Home Medications
�Medication �Instructions �Recorded
[place] Tears 1 drp BOTH EYES HS dry eyes 03/03/23
acetaminophen 500 mg tablet 1,000 mg PO Q6H PRN leg PAIN 03/03/23
apixaban 2.5 mg tablet (Eliquis) 2.5 mg PO BID Blood Clot 03/03/23
Prevention/Tx
cholecalciferol (vitamin D3) 125 125 mcg PO TH Supplement 03/03/23
mcg (5,000 unit) tablet (Vitamin
D3)
clonazepam 1 mg tablet 1 mg PO HS Mental Health/Anxiety 03/03/23
fenofibrate 160 mg tablet 160 mg PO DAILY High Cholesterol 03/03/23
hydralazine 25 mg tablet 25 mg PO BID Blood Pressure 03/03/23
levothyroxine 75 mcg tablet 75 mcg PO DAILY AT 0700 Thyroid 03/03/23
polyethylene glycol 3350 17 gram 8.5 g PO DAILY Constipation 03/03/23
oral powder packet (Miralax)
nifedipine 30 mg tablet,extended 30 mg PO BID #60 tabs 03/06/23
release
furosemide 20 mg tablet (Lasix) 20 mg PO DAILY Fluid 07/08/23
Retention/Swelling
lovastatin 10 mg tablet 10 mg PO DAILY High Cholesterol 07/08/23
therapeutic multivitamin 1 tab PO DAILY Supplement 07/08/23
Vital Signs and Labs
-
Vital Signs and Labs:
Vital Signs
Temp Pulse Resp BP Pulse Ox
36.6 C 73 19 130/43 91
03/28/24 12:44 03/28/24 12:44 03/28/24 12:44 03/28/24 12:44 03/28/24 12:44
Lab Results
03/28/24 04:06
03/28/24 04:06
Sodium 146 mmol/L (135-145) H 03/28/24 04:06
Potassium 4.7 mmol/L (3.5-5.1) 03/28/24 04:06
BUN 61 mg/dl (7-17) H 03/28/24 04:06
Glucose 65 mg/dl (70-99) L 03/28/24 04:06
Calcium 9.9 mg/dl (8.4-10.2) 03/28/24 04:06
Phosphorus 3.2 mg/dl (2.5-4.5) 03/28/24 04:06
Medications
-
Medications:
Generic Name Dose Route Start Last Admin
Trade Name Freq PRN Reason Stop Dose Admin
Acetaminophen 650 mg 03/28/24 12:21 03/28/24 12:57
Acetaminophen 325 Mg Tablet PO 04/25/24 12:20 650 mg
Q6HPRN PRN Administration
mild pain/ fever>100.5F
Apixaban 2.5 mg 03/28/24 08:00 03/28/24 09:03
Apixaban (Eliquis) 2.5 Mg Tablet PO 04/25/24 07:59 2.5 mg
BID HATTIE Administration
Atorvastatin Calcium 10 mg 03/28/24 08:00 03/28/24 09:05
Atorvastatin (Lipitor) 10 Mg Tablet PO 04/25/24 07:59 10 mg
DAILY HATTIE Administration
Bisacodyl 10 mg 03/28/24 00:03
Bisacodyl 10 Mg Rectal Suppository RECTAL 04/25/24 00:02
[id number] PRN
constipation
Clonazepam 1 mg 03/28/24 22:00
Clonazepam 1 Mg Tablet PO 04/25/24 21:59
HS HATTIE
Dextrose 12.5 grams 03/28/24 06:15
Dextrose 50% (0.5 Grams/Ml) 50 Ml Syringe IV 04/25/24 06:14
[id number] PRN
hypoglycemia
Protocol
Fenofibrate 145 mg 03/28/24 08:00 03/28/24 09:02
Fenofibrate 145 Mg Tablet PO 04/25/24 07:59 145 mg
DAILY HATTIE Administration
Glucagon 1 mg 03/28/24 06:15
Glucagon 1 Mg Vial IM 04/25/24 06:14
PRN PRN
hypoglycemia
Protocol
Hydralazine HCl 25 mg 03/28/24 11:00 03/28/24 12:57
Hydralazine 25 Mg Tablet PO 04/25/24 10:59 25 mg
BID HATTIE Administration
Levothyroxine Sodium 50 mcg 03/28/24 06:00 03/28/24 09:03
Levothyroxine 50 Mcg Tablet PO 04/25/24 05:59 50 mcg
DAILY @ 0600 HATTIE Administration
Nifedipine 30 mg 03/28/24 08:00 03/28/24 09:03
Nifedipine 30 Mg Extended Release Tablet PO 04/25/24 07:59 30 mg
BID HATTIE Administration
Polyethylene Glycol 8.5 grams 03/28/24 08:00 03/28/24 09:03
Polyethylene Glycol Powder 17 Grams Packet PO 04/25/24 07:59 8.5 grams
DAILY HATTIE Administration
Polyethylene Glycol 17 grams 03/28/24 00:03
Polyethylene Glycol Powder 17 Grams Packet PO 04/25/24 00:02
DAILYPRN PRN
constipation
Senna/Docusate Sodium 1 tablet 03/28/24 00:03
Docusate W/Senna (Sisi-Colace) Tablet PO 04/25/24 00:02
BIDPRN PRN
constipation
Sodium Chloride 0 flush 03/27/24 23:00
Sodium Chloride 0.9% (Flush) Syringe IV 04/24/24 22:59
PER PROTOCOL HATTIE
Home Medications
-
Home Medications
[place] Tears 1 drp BOTH EYES HS dry eyes 03/03/23
acetaminophen 500 mg tablet 1,000 mg PO Q6H PRN leg PAIN 03/03/23
apixaban 2.5 mg tablet (Eliquis) 2.5 mg PO BID Blood Clot Prevention/Tx 03/03/23
cholecalciferol (vitamin D3) 125 mcg (5,000 unit) tablet (Vitamin D3) 125 mcg PO TH Supplement 03/03/23
clonazepam 1 mg tablet 1 mg PO HS Mental Health/Anxiety 03/03/23
fenofibrate 160 mg tablet 160 mg PO DAILY High Cholesterol 03/03/23
hydralazine 25 mg tablet 25 mg PO BID Blood Pressure 03/03/23
levothyroxine 75 mcg tablet 75 mcg PO DAILY AT 0700 Thyroid 03/03/23
polyethylene glycol 3350 17 gram oral powder packet (Miralax) 8.5 g PO DAILY Constipation 03/03/23
nifedipine 30 mg tablet,extended release 30 mg PO BID #60 tabs 03/06/23
furosemide 20 mg tablet (Lasix) 20 mg PO DAILY Fluid Retention/Swelling 07/08/23
lovastatin 10 mg tablet 10 mg PO DAILY High Cholesterol 07/08/23
therapeutic multivitamin 1 tab PO DAILY Supplement 07/08/23
--- NOTE | 2024-03-28 15:20 | CM ---
Met with patient, son and dgtr in room. Patient was living alone in ran home with 2 steps to enter. There is one step down to her [place] room.
She has rolling walker, cane, w/c, shower chair, shower rails. She usually walks in home with device. She orders groceries on line.
She does not drive.
usually only goes out to doctor .
PCP Dr. franklin Calle
pharmacy: [facility]
she has been to [facility] in past and will go again if needed.
She has had [facility] in past.
PLAN:SNF rehab.
[2024-03-28] MEDS: SINEMET 25-100 1 TABLET PO ×2 (16:39→22:10)
[2024-03-28 17:07] LABS: Glucose - Point of Care 80 mg/dl (70-99)
[2024-03-28] MEDS: KLONOPIN 1 MG PO (22:10)
[2024-03-29 03:51] VITALS: BP 172/71
[2024-03-29 04:59] LABS: Glucose - Point of Care 67 mg/dl (70-99)
[2024-03-29 05:19] LABS: Glucose - Point of Care 87 mg/dl (70-99)
[2024-03-29] MEDS: SYNTHROID 50 MCG PO (05:58)
[2024-03-29 06:00] VITALS: BMI 42.3
[2024-03-29 07:36] VITALS: BP 173/75
[2024-03-29] MEDS: LIPITOR 10 MG PO (08:36)
[2024-03-29] MEDS: PROCARDIA XL (EXTENDED RELEASE) 30 MG PO ×2 (08:36→20:36)
[2024-03-29] MEDS: SINEMET 25-100 1 TABLET PO ×3 (08:36→22:41)
[2024-03-29] MEDS: APRESOLINE 25 MG PO ×2 (08:36→20:35)
[2024-03-29] MEDS: TRICOR 145 MG PO (08:36)
[2024-03-29] MEDS: ELIQUIS 2.5 MG PO ×2 (08:36→20:35)
[2024-03-29] MEDS: MIRALAX 8.5 GRAMS PO (08:36)
[2024-03-29 08:38] LABS: Hematocrit 33.9 % (37.0-47.0); Mean Corp Hgb Conc. 32.4 g/dL (33.0-37.0); Mean Corpuscular Hgb 27.8 pg (27.0-31.0); Mean Corpuscular Volume 85.8 fL (81.0-99.0); Mean Platelet Volume 12.5 fL (7.4-10.4); Platelet Count 177 10^3/uL (130-400); Red Blood Cell Count 3.95 10^6/uL (4.20-5.40); Red Cell Dist. Width 15.6 % (11.5-14.5); White Blood Cell Count 4.5 10^3/uL (4.8-10.8)
[2024-03-29 09:15] LABS: Blood Urea Nitrogen 49 mg/dl (7-17); Calcium 9.8 mg/dl (8.4-10.2); Carbon Dioxide 26 mmol/L (22-30); Chloride 106 mmol/L (98-107); Estimated Creatinine Clearance 31 ml/min; Glucose 73 mg/dl (70-99); Potassium 4.1 mmol/L (3.5-5.1); Sodium 143 mmol/L (135-145); eGFR 29.76
[2024-03-29 11:05] VITALS: BP 153/59
--- NOTE | 2024-03-29 11:33 | W.PN.NEPH.PH ---
Today's Communication / Plan
-
holding lasix
encourage po fluid intake
Assessment/Plan
-
Assessment
Weakness
Tremor
Hypertension
Lymphedema
CKD 3B (1.6)
LUIS M
Hypernatremia
Decreased appetite
Obesity
Plan
creatinine at 1.7 and remains non oliguric
serum sodium improved to 143
Follow BMP
holding Lasix for now
maintain anti-htns for hypertension
encourage po intake for dehydration
no ivfs at this time
-
-
Date of Service: March 29, 2024
CC / HPI / ROS
-
Chief Complaint:
LUIS M
History of Present Illness:
hemodynamically stable
creatinin down to 1.7
Review of Systems:
back pain
no fevers
non oilguric
Labs
-
Labs:
WBC 4.5 10^3/uL (4.8-10.8) L 03/29/24 06:27
RBC 3.95 10^6/uL (4.20-5.40) L 03/29/24 06:27
Hgb 11.0 g/dL (12.0-16.0) L 03/29/24 06:27
Hct 33.9 % (37.0-47.0) L 03/29/24 06:27
Plt Count 177 10^3/uL (130-400) 03/29/24 06:27
Sodium 143 mmol/L (135-145) 03/29/24 06:27
Potassium 4.1 mmol/L (3.5-5.1) 03/29/24 06:27
Chloride 106 mmol/L (98-107) 03/29/24 06:27
Carbon Dioxide 26 mmol/L (22-30) 03/29/24 06:27
BUN 49 mg/dl (7-17) H 03/29/24 06:27
Creatinine 1.7 mg/dL (0.6-1.0) H 03/29/24 06:27
eGFR 29.76 03/29/24 06:27
Glucose 73 mg/dl (70-99) 03/29/24 06:27
Calcium 9.8 mg/dl (8.4-10.2) 03/29/24 06:27
Phosphorus 3.2 mg/dl (2.5-4.5) 03/28/24 04:06
Albumin 3.8 g/dl (3.5-5.0) 03/28/24 04:06
Physical Exam
-
Vital Signs:
Vital Signs
Temp Pulse Resp BP Pulse Ox
97.1 F 62 16 173/75 97
03/29/24 07:36 03/29/24 08:36 03/29/24 07:36 03/29/24 08:36 03/29/24 07:36
Respiratory:: Bilateral: CTA
Lung Excursion:: Normal
Abdomen:: Nontender and Soft
Bowel Sounds:: Normal
Extremity Edema:: +3: Bilateral:
Cisse Catheter: No
[2024-03-29] MEDS: XANAX 0.5 MG PO (13:09)
--- NOTE | 2024-03-29 14:31 | W.PN.HOSP.TC ---
Today's Communication/Plan
-
Lumbar spine xray
PT eval
Assessment / Plan
Assessment / Plan
A/P:
Hypothermia:
Improved
Thyroid function abnormal but less likely contributing.
No signs of infection but follow-up blood cultures
Follow clinically for now
Lower extremity weakness and back pain:
Unclear if related to recent vaccination vs deconditioning and meds vs ??stroke
Appt neurology input
Check lumbar spine xray to rule out fx
Toxic metabolic encephalopathy:
Resolved
Okay to continue using benzodiazepines judiciously
LUIS M on CKD stage IIIb:
Encourage oral intake
Nephrology following
History of VTE:
Continue Eliquis
Hypertension:
cw antihypertensives
Monitor blood pressure and adjust medications accordingly
Hyperlipidemia:
Continue home statins
Hypothyroidism:
Reduced thyroid dose given low TSH
Recheck TFT in 6 weeks
Obesity:
Lifestyle changes modification
DVT prophylaxis:
Eliquis
CODE STATUS:
DNR
PT eval
Anticipated Discharge: 24 - 48 hours
Subjective/Interval History
-
Date of Service: March 29, 2024
Complains of low back pain especially when she gets moved sideways. She sometimes gets pain to both calves especially when she is moved sideways. Denies any weakness in the lower extremity. Denies any prior history of neuropathy. Denies
feeling tingling numbness or [id number] in both the feet at rest.
Objective Data
-
Labs:
Laboratory Results
03/29/24
06:27
WBC 4.5 L
Hgb 11.0 L
Hct 33.9 L
Plt Count 177
Sodium 143
Potassium 4.1
Chloride 106
Carbon Dioxide 26
BUN 49 H
Creatinine 1.7 H
Glucose 73
Calcium 9.8
Vital Signs:
Vital Signs
Temp Pulse Resp BP Pulse Ox
96.7 F L 60 18 153/59 95
03/29/24 11:51 03/29/24 11:05 03/29/24 11:05 03/29/24 11:05 03/29/24 11:05
I&O
03/28/24 03/29/24 03/30/24
06:59 06:59 06:59
Intake Total 420 / 420
Output Total 975 / 975 1100 / 1100
Balance -975 / -975 -680 / -680
Review of Systems
-
Constitutional: Denies Fever
EENT: Denies Sore Throat
Respiratory: Denies Cough or Trouble Breathing
Cardiac: Denies Chest Pain or Palpitations
Abdomen/GI: Denies Abdominal Pain, Nausea or Vomiting
Neuro: Denies Dizzy
Physical Exam
-
General: Comfortable
HEENT: Moist Mucous Membranes
Respiratory: Clear to Auscultation (anteriorly) and Non Labored Respirations; Negative Accessory Resp Muscle Use
Cardiac: Regular Rhythm and S1/S2
GI: Soft
Musculoskeletal: Edema, Right Lower Extrem and Edema, Left Lower Extrem
Neuro: AO x 3
Psych: Calm
Data Reviewed
-
Labs: Labs Reviewed by me
[2024-03-29 15:00] VITALS: BP 161/62
[2024-03-29 20:09] VITALS: BP 165/52
[2024-03-29] MEDS: KLONOPIN 1 MG PO (22:41)
[2024-03-29 22:47] VITALS: BP 164/61
[2024-03-30 02:07] LABS: Glucose - Point of Care 76 mg/dl (70-99)
[2024-03-30 02:09] VITALS: BP 156/66
[2024-03-30] MEDS: TYLENOL 650 MG PO (05:48)
[2024-03-30] MEDS: SYNTHROID 50 MCG PO (05:49)
[2024-03-30 06:00] VITALS: BMI 41.6
[2024-03-30 07:08] VITALS: BP 142/57
[2024-03-30] MEDS: APRESOLINE 25 MG PO ×2 (07:20→20:19)
[2024-03-30] MEDS: PROCARDIA XL (EXTENDED RELEASE) 30 MG PO ×2 (07:20→20:18)
[2024-03-30] MEDS: ELIQUIS 2.5 MG PO ×2 (07:21→20:19)
[2024-03-30] MEDS: LIPITOR 10 MG PO (07:21)
[2024-03-30] MEDS: TRICOR 48 MG PO (07:21)
[2024-03-30] MEDS: SINEMET 25-100 1 TABLET PO ×3 (07:21→21:20)
[2024-03-30] MEDS: MIRALAX 8.5 GRAMS PO (07:27)
[2024-03-30 08:11] LABS: Blood Urea Nitrogen 46 mg/dl (7-17); Calcium 10.1 mg/dl (8.4-10.2); Carbon Dioxide 27 mmol/L (22-30); Chloride 108 mmol/L (98-107); Estimated Creatinine Clearance 31 ml/min; Glucose 75 mg/dl (70-99); Potassium 4.1 mmol/L (3.5-5.1); Sodium 142 mmol/L (135-145); eGFR 29.76
[2024-03-30 10:36] VITALS: BP 156/63
[2024-03-30 10:46] LABS: Intact PTH 14.6 pg/ml (13.6-85.8)
--- NOTE | 2024-03-30 12:58 | W.PN.NEPH.PH ---
Today's Communication / Plan
-
Follow BMP
Still holding Lasix
Creatinine close to baseline at 1 point
Assessment/Plan
-
Assessment
Weakness
Tremor
Hypertension
Lymphedema
CKD 3B (1.6)
LUIS M
Hypernatremia
Decreased appetite
Obesity
Plan
creatinine at 1.7 and remains non oliguric
serum sodium improved to 142
Follow BMP
holding Lasix for now,
maintain anti-htns for hypertension
encourage po intake for dehydration
no ivfs at this time
-
-
Date of Service: March 30, 2024
CC / HPI / ROS
-
Chief Complaint:
LUIS M
History of Present Illness:
hemodynamically stable
creatinin down to 1.7
Sodium of 142
Review of Systems:
back pain
no fevers
Nonoliguric
Weights down
Labs
-
Labs:
WBC 4.5 10^3/uL (4.8-10.8) L 03/29/24 06:27
RBC 3.95 10^6/uL (4.20-5.40) L 03/29/24 06:27
Hgb 11.0 g/dL (12.0-16.0) L 03/29/24 06:27
Hct 33.9 % (37.0-47.0) L 03/29/24 06:27
Plt Count 177 10^3/uL (130-400) 03/29/24 06:27
Sodium 142 mmol/L (135-145) 03/30/24 07:12
Potassium 4.1 mmol/L (3.5-5.1) 03/30/24 07:12
Chloride 108 mmol/L (98-107) H 03/30/24 07:12
Carbon Dioxide 27 mmol/L (22-30) 03/30/24 07:12
BUN 46 mg/dl (7-17) H 03/30/24 07:12
Creatinine 1.7 mg/dL (0.6-1.0) H 03/30/24 07:12
eGFR 29.76 03/30/24 07:12
Glucose 75 mg/dl (70-99) 03/30/24 07:12
Calcium 10.1 mg/dl (8.4-10.2) 03/30/24 07:12
Phosphorus 3.2 mg/dl (2.5-4.5) 03/28/24 04:06
Albumin 3.8 g/dl (3.5-5.0) 03/28/24 04:06
Physical Exam
-
Vital Signs:
Vital Signs
Temp Pulse Resp BP Pulse Ox
97.1 F 62 16 156/63 94
03/30/24 10:36 03/30/24 10:36 03/30/24 10:36 03/30/24 10:36 03/30/24 10:36
Respiratory:: Bilateral: CTA
Lung Excursion:: Normal
Abdomen:: Nontender and Soft
Bowel Sounds:: Normal
Extremity Edema:: +3: Bilateral:
Cisse Catheter: No
--- NOTE | 2024-03-30 13:08 | W.PN.HOSP.TC ---
Today's Communication/Plan
-
Neurosurgery consultation
CW pain med and PT tx
Assessment / Plan
Assessment / Plan
A/P:
Hypothermia:
Normalized
Thyroid function abnormal in the sense she is more hyperT state and should be elevating her Temp.
No signs of infection but follow-up blood cultures
Lower extremity weakness and back pain:
Rule out related to lumbar disc disease-MRI of the lumbar spine shows T12/L1 intervertebral disc abnormality with a differential of anterior disc herniation versus discitis. There is also L5-S1 intervertebral disc abnormality concerning more for
degenerative disc disease than discitis.
clinically patient afebrile And nontoxic.
Will consult neurosurgery
Cervical cord stenosis with compression-apart from mild neck pain she has complaining no radiculopathy.. NSG to comment
Toxic metabolic encephalopathy:
Resolved
Okay to continue using benzodiazepines judiciously
LUIS M on CKD stage IIIb:
Encourage oral intake
Nephrology following
Creatinine at baseline
History of VTE:
Continue Eliquis
Hypertension:
cw antihypertensives
Monitor blood pressure and adjust medications accordingly
Hyperlipidemia:
Continue home statins
Hypothyroidism:
Reduced thyroid dose given low TSH
Recheck TFT in 6 weeks
Obesity:
Lifestyle changes modification
DVT prophylaxis:
Eliquis
CODE STATUS:
DNR
PT eval
discussed with daughter about the MRI finding and the neurosurgical plan.
Total time spent on today's encounter was 52 minutes which included time spent in counseling the patient/family regarding diagnosis and treatment plan as listed above, goals of care, and symptom management. Case was discussed with nursing staff,
specialists. All labs and imaging personally reviewed by me. Remainder the time spent in detailed review of previous records, lab data, imaging, and other medical provider documentation.
Anticipated Discharge: 24 - 48 hours
Subjective/Interval History
-
Date of Service: March 30, 2024
Sitting in the chair today.
She says it was difficult to get from the bed to the chair. She needed help. It was because of the low back pain.
Told her about the cervical spine MRI findings of cord compression but she says she had no major issues with the neck. Occasionally she gets a neck pain the way she is watching TV. She denies any shoulder pain or any pain in both arms. No
problems swallowing.
Her foci of pain is in the lower back. Few years ago she had a sciatica pain affect during the right leg and she needed to be in the hospital and then go to rehab and she finally got over it. She still feels not that great with the right leg. She
uses a cane in tight spaces and a walker for longer stretches of ambulation.
She states she came in because she was feeling weak after dual vaccination of flu and COVID.
Objective Data
-
Labs:
Laboratory Results
03/30/24
07:12
Sodium 142
Potassium 4.1
Chloride 108 H
Carbon Dioxide 27
BUN 46 H
Creatinine 1.7 H
Glucose 75
Calcium 10.1
Vital Signs:
Vital Signs
Temp Pulse Resp BP Pulse Ox
97.1 F 62 16 156/63 94
03/30/24 10:36 03/30/24 10:36 03/30/24 10:36 03/30/24 10:36 03/30/24 10:36
I&O
03/29/24 03/30/24 03/31/24
06:59 06:59 06:59
Intake Total 420 / 420 960 / 960
Output Total 1100 / 1100 1350 / 1350
Balance -680 / -680 -390 / -390
Review of Systems
-
Constitutional: Denies Fever
EENT: Denies Sore Throat
Respiratory: Denies Trouble Breathing
Cardiac: Denies Chest Pain
Abdomen/GI: Denies Abdominal Pain, Nausea or Vomiting
Physical Exam
-
General: Comfortable
HEENT: Moist Mucous Membranes
Respiratory: Non Labored Respirations; Negative Accessory Resp Muscle Use
Cardiac: Regular Rhythm and S1/S2
GI: Soft
Musculoskeletal: Edema, Right Lower Extrem and Edema, Left Lower Extrem
Neuro: AO x 3 and No Motor Deficits
Psych: Calm; Negative Confused or Agitated
Data Reviewed
-
MRI: Report Reviewed by me (MRI of C and L spine)
--- NOTE | 2024-03-30 13:38 | CM ---
Reviewed PT note, indication is for SNF. Met with patient and her daughter in law at bedside. Patient agreeable to SNF placement and chose: [facility], [facility] and [facility]. Will await determination.
Plan: Case management will continue to follow and assist with discharge planning. SNF when stable.
[2024-03-30 16:04] VITALS: BP 166/63
[2024-03-30 19:17] VITALS: BP 155/62
[2024-03-30] MEDS: KLONOPIN 1 MG PO (21:20)
--- NOTE | 2024-03-30 22:39 | W.PN.NEURO.1 ---
Today's Communication / Plan
-
Orthopedic consult /Steroid/PT
Neuro Assessment/Plan
Assessment
83 yr. old lady with h/o weakness ataxia and incontinence. Exam reveals alert pat with normal cranial nerve exam and limb weakness. Hyperreflexia and Bilateral Babinskis
With gait ataxia
MRI C-Spine reveals cord compression C5-C6. 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
A: Cervical Myelopathy
Lumbar spondylosis/radiculopathy
Plan
Orthopedic Eval
Consider Prednisone
PT/OT
Subjective/Objective
Subjective Data
Date of Service: March 30, 2024
Pat continue to be weak
Objective Data
Vital Signs
Temp Pulse Resp BP Pulse Ox
36.3 C 57 16 155/62 97
03/30/24 19:17 03/30/24 19:17 03/30/24 19:17 03/30/24 19:17 03/30/24 19:17
Lab Results
03/29/24 06:27
03/30/24 07:12
Sodium 142 mmol/L (135-145) 03/30/24 07:12
Potassium 4.1 mmol/L (3.5-5.1) 03/30/24 07:12
BUN 46 mg/dl (7-17) H 03/30/24 07:12
Glucose 75 mg/dl (70-99) 03/30/24 07:12
Calcium 10.1 mg/dl (8.4-10.2) 03/30/24 07:12
Phosphorus 3.2 mg/dl (2.5-4.5) 03/28/24 04:06
Patient Allergies
codeine Allergy (Verified 08/13/23 15:43)
Nausea
erythromycin base Allergy (Verified 03/27/24 18:34)
Unknown
ondansetron Allergy (Verified 08/13/23 15:43)
Unknown
Penicillins Allergy (Verified 08/13/23 15:43)
Unknown
prochlorperazine [From Compazine] Allergy (Verified 08/13/23 15:43)
Unknown
sertraline Allergy (Verified 08/13/23 15:43)
Nausea
[2024-03-30 23:20] VITALS: BP 119/57
[2024-03-31 04:00] VITALS: BP 162/67
--- NOTE | 2024-03-31 04:46 | DOWNTIME ---
There was a [employer] Downtime on 03/31/2024 from 0100 to 03/31/2024 at 0355. Downtime documentation of patient's care, including medication administrations, has been reconciled in the electronic record per guidelines. Refer to the
patient's paper chart under the miscellaneous tab to see printed paper medication records and downtime forms.
[2024-03-31] MEDS: SYNTHROID 50 MCG PO (05:43)
[2024-03-31 06:00] VITALS: BMI 41.3
[2024-03-31 07:00] VITALS: BP 132/81
[2024-03-31 08:01] LABS: Blood Urea Nitrogen 47 mg/dl (7-17); Carbon Dioxide 26 mmol/L (22-30); Chloride 106 mmol/L (98-107); Erythrocyte Sed Rate 48 mm/hour (0-20); Estimated Creatinine Clearance 37 ml/min; Glucose 70 mg/dl (70-99); Potassium 4.1 mmol/L (3.5-5.1); Sodium 143 mmol/L (135-145); eGFR 37.56
[2024-03-31] MEDS: MIRALAX 8.5 GRAMS PO (08:39)
[2024-03-31] MEDS: TRICOR 48 MG PO (08:39)
[2024-03-31] MEDS: SINEMET 25-100 1 TABLET PO ×3 (08:39→22:11)
[2024-03-31] MEDS: APRESOLINE 25 MG PO ×2 (08:39→20:32)
[2024-03-31] MEDS: LIPITOR 10 MG PO (08:39)
[2024-03-31] MEDS: ELIQUIS 2.5 MG PO (08:39)
[2024-03-31] MEDS: PROCARDIA XL (EXTENDED RELEASE) 30 MG PO ×2 (08:40→20:33)
[2024-03-31 11:18] VITALS: BP 166/65
--- NOTE | 2024-03-31 12:03 | W.PN.NEPH.PH ---
Today's Communication / Plan
-
follow BMP
Assessment/Plan
-
Assessment
Weakness
Tremor
Hypertension
Lymphedema
CKD 3B (1.6)
LUIS M
Hypernatremia
Decreased appetite
Obesity
Plan
Follow BMP
holding Lasix for now
no IVF needed
-
-
Date of Service: March 31, 2024
CC / HPI / ROS
-
Chief Complaint:
LUIS M
History of Present Illness:
hemodynamically stable
LUIS M/Cr down to 1.4
Sodium of 143
Review of Systems:
back pain still
no fevers
Labs
-
Labs:
WBC 4.5 10^3/uL (4.8-10.8) L 03/29/24 06:27
RBC 3.95 10^6/uL (4.20-5.40) L 03/29/24 06:27
Hgb 11.0 g/dL (12.0-16.0) L 03/29/24 06:27
Hct 33.9 % (37.0-47.0) L 03/29/24 06:27
Plt Count 177 10^3/uL (130-400) 03/29/24 06:27
Sodium 143 mmol/L (135-145) 03/31/24 06:54
Potassium 4.1 mmol/L (3.5-5.1) 03/31/24 06:54
Chloride 106 mmol/L (98-107) 03/31/24 06:54
Carbon Dioxide 26 mmol/L (22-30) 03/31/24 06:54
BUN 47 mg/dl (7-17) H 03/31/24 06:54
Creatinine 1.4 mg/dL (0.6-1.0) H 03/31/24 06:54
eGFR 37.56 03/31/24 06:54
Glucose 70 mg/dl (70-99) 03/31/24 06:54
Calcium 10.0 mg/dl (8.4-10.2) 03/31/24 06:54
Phosphorus 3.2 mg/dl (2.5-4.5) 03/28/24 04:06
Albumin 3.8 g/dl (3.5-5.0) 03/28/24 04:06
Physical Exam
-
Vital Signs:
Vital Signs
Temp Pulse Resp BP Pulse Ox
97.5 F 57 17 132/81 94
03/31/24 07:00 03/31/24 08:40 03/31/24 07:00 03/31/24 08:40 03/31/24 07:00
Cardiovascular:: Regular rate and rhythm
Respiratory:: Bilateral: Coarse
Lung Excursion:: Normal
Abdomen:: Nontender and Soft
Bowel Sounds:: Normal
Extremity Edema:: None: Bilateral:
--- NOTE | 2024-03-31 15:25 | CM ---
Addendum entered by JEWEL Zavala 03/31/24 15:31:
Tonya stated that [facility] will be covering for her tomorrow.
Original Note:
Reviewed chart, [facility] offered a bed to patient, through [employer]. Placed a call to [facility] and spoke with Tonya in admissions. Tonya confirmed bed availability and stated that she can accept patient tomorrow. Patient needs a Covid test.
Relayed this to attending.
NPI for Facility [id number] Dr. Kwaku Osorio [id number]
Will start auth in the am in anticipation of patient discharging.
Placed a call to patient's daughter, Erin who is agreeable to plan,
Plan: Case management will continue to follow and assist with discharge planning. [facility] when stable.
--- NOTE | 2024-03-31 15:41 | CON.NS ---
Chief Complaint
-
LE weakness
History of Present Illness
This is an 83 y/o F with PMH of DVT and P/E , on Eliquis , pre-diabetic, chr Zelda lymphedema who presented to the ED with c/o tremors that started a few days after she received the COVID and Flu Vaccine. She was found to be hypothermic with
temperature of 92 and she was lethargic and in LUIS M. She was admitted for further work up and evaluation. She also c/o weakness in LE and difficutly with ambulation. MRI cervical spine and lumbar spine were completed. Neurosurgery was consulted. ESR
was 48 and CRP was 15.7. Blood cultures were negative.
Patient seen and examined. Patient states she has been ambulating with a cane/walker for the past year due to sciatica, but does note some worsening of gait over the past several days. She also notes increased back pain. She denies any
numbness/tingling in her hands. She has chronic numbness in her feet due to swelling. She denies decreased dexterity or dropping objects. Denies recent infections. She does state she had a car door hit her leg and sustained a laceration which
required sutures.
Review of Systems
-
ROS reviewed and negative except as documented in HPI and ROS
Medical History
Past Medical History
Additional Past Medical History:
HTN, Hypothyroidism and Other (history of DVT and P/E in past, pre-diabetic, lymphedema)
Social History
Tobacco: Non-smoker
Alcohol: None
Drug: None
Personal:
Living: alone
Medication and Allergies
Home Medications
Home Medications
�Medication �Instructions �Recorded
[place] Tears 1 drp BOTH EYES HS dry eyes 03/03/23
acetaminophen 500 mg tablet 1,000 mg PO Q6H PRN leg PAIN 03/03/23
apixaban 2.5 mg tablet (Eliquis) 2.5 mg PO BID Blood Clot 03/03/23
Prevention/Tx
cholecalciferol (vitamin D3) 125 125 mcg PO TH Supplement 03/03/23
mcg (5,000 unit) tablet (Vitamin
D3)
clonazepam 1 mg tablet 1 mg PO HS Mental Health/Anxiety 03/03/23
fenofibrate 160 mg tablet 160 mg PO DAILY High Cholesterol 03/03/23
hydralazine 25 mg tablet 25 mg PO BID Blood Pressure 03/03/23
levothyroxine 75 mcg tablet 75 mcg PO DAILY AT 0700 Thyroid 03/03/23
polyethylene glycol 3350 17 gram 8.5 g PO DAILY Constipation 03/03/23
oral powder packet (Miralax)
nifedipine 30 mg tablet,extended 30 mg PO BID #60 tabs 03/06/23
release
furosemide 20 mg tablet (Lasix) 20 mg PO DAILY Fluid 07/08/23
Retention/Swelling
lovastatin 10 mg tablet 10 mg PO DAILY High Cholesterol 07/08/23
therapeutic multivitamin 1 tab PO DAILY Supplement 07/08/23
Allergies
Allergies
Allergy/AdvReac Type Severity Reaction Status Date / Time
codeine Allergy Nausea Verified 08/13/23 15:43
erythromycin base Allergy Unknown Verified 03/27/24 18:34
ondansetron Allergy Unknown Verified 08/13/23 15:43
Penicillins Allergy Unknown Verified 08/13/23 15:43
prochlorperazine Allergy Unknown Verified 08/13/23 15:43
[From Compazine]
sertraline Allergy Nausea Verified 08/13/23 15:43
Physical Exam
-
Exam:
VSS
Patient awake, alert and oriented to person, place and time
CN 2-12 grossly intact
speech: clear/fluent
motor: 5/5 in UE/LE
swelling in B/L LE which is chronic
negative cornejo's bilaterally
unable to elicit clonus
skin- dry and without rashes/lesions
Imaging: Below images and reports are personally reviewed by myself and attending.
MRI Lumbar Spine
IMPRESSION:
1. Small amount of fluid signal intensity in the anterior aspect of the T12/L1 intervertebral disc, mild adjacent acute endplate bone marrow edema, and mild adjacent soft tissue edema. Diagnostic possibilities are (1) acute anterior disc
herniations deep to the anterior longitudinal ligament or (2) less likely acute infectious discitis given that the signal abnormality is only located in the anterior aspect of the intervertebral disc.
2. Moderate signal intensity in the L5/S1 intervertebral disc without evidence for adjacent acute endplate bone marrow edema. Diagnostic possibilities are (1) degenerative disc disease or (2) less likely acute infectious discitis given the absence
of adjacent endplate bone marrow edema.
3. 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
4. Severe diffuse posterior paraspinal muscle atrophy.
MRI Cervical Spine
IMPRESSION:
1. SEVERE SPINAL CORD COMPRESSION and SEVERE CENTRAL CANAL STENOSIS at C5/C6 secondary to a LARGE CENTRAL DISC HERNIATION. Moderate edema or myelomalacia in the cervical spinal cord at the C5/C6 level.
2. Moderate-sized right central disc herniation at C3/C4 causing moderate spinal cord compression and central canal stenosis. Mild edema or myelomalacia in the cervical spinal cord at the C3/C4 level.
3. Moderate-sized disc herniations at C4/C5 and C6/C7 causing mild spinal cord compression and central canal stenosis.
Problems
-
Problem Status Onset Code
Hypothermia T68.XXXA
Assessment / Plan
-
83 y/o F with stir signal changes in multiple intervertebral discs concerning for Discitis/OM and cervical stenosis
--Imaging reviewed by and discussed with Dr. Mac. No acute neurosurgical intervention indicated at this time
--recommend consult to ID given elevated CRP, ESR and lumbar spine MRI findings.
--will continue to follow
--Patient discussed with Dr. Mca
--- NOTE | 2024-03-31 16:54 | W.PN.HOSP.TC ---
Today's Communication/Plan
-
Consult ID
Hold Eliquis
Assessment / Plan
Assessment / Plan
A/P:
Hypothermia:
Normalized
Thyroid function abnormal in the sense she is more hyperT state and should be elevating her Temp.
No signs of infection but follow-up blood cultures
Lower extremity weakness and back pain:
Rule out related to lumbar disc disease-MRI of the lumbar spine shows T12/L1 intervertebral disc abnormality with a differential of anterior disc herniation versus discitis. There is also L5-S1 intervertebral disc abnormality concerning more for
degenerative disc disease than discitis.
clinically patient afebrile And nontoxic.
Neurosurgery/spine input noted -recommends ID eval
Mild elevation in inflammatory markers - consult ID
Cervical cord stenosis with compression-apart from mild neck pain she has complaining no radiculopathy.. NSG recommends no interventions.
Toxic metabolic encephalopathy:
Resolved
Okay to continue using benzodiazepines judiciously
LUIS M on CKD stage IIIb:
Encourage oral intake
Nephrology following
Creatinine at baseline
History of VTE:
Continue Eliquis -hold eliquis in anticipation of spinal dx procedures
Hypertension:
cw antihypertensives
Monitor blood pressure and adjust medications accordingly
Hyperlipidemia:
Continue home statins
Hypothyroidism:
Reduced thyroid dose given low TSH
Recheck TFT in 6 weeks
Obesity:
Lifestyle changes modification
DVT prophylaxis:
Eliquis
CODE STATUS:
DNR
PT eval
discussed with son at bedside and updated findings and dx plan.
Anticipated Discharge: > 48 hours
Subjective/Interval History
-
Date of Service: March 31, 2024
Still complains of low back pain. No new symptoms. Denies fevers.
Objective Data
-
Labs:
Laboratory Results
10/16/24
06:54
Sodium 143
Potassium 4.1
Chloride 106
Carbon Dioxide 26
BUN 47 H
Creatinine 1.4 H
Glucose 70
Calcium 10.0
Vital Signs:
Vital Signs
Temp Pulse Resp BP Pulse Ox
97.3 F 55 18 166/65 95
03/31/24 11:18 03/31/24 11:18 03/31/24 11:18 03/31/24 11:18 03/31/24 11:18
I&O
03/30/24 03/31/24 04/01/24
06:59 06:59 06:59
Intake Total 960 / 960 1200 / 1200
Output Total 1350 / 1350
Balance -390 / -390 1200 / 1200
Review of Systems
-
Respiratory: Denies Trouble Breathing
Cardiac: Denies Chest Pain
Abdomen/GI: Denies Abdominal Pain, Nausea or Vomiting
Physical Exam
-
Respiratory: Non Labored Respirations; Negative Accessory Resp Muscle Use
Cardiac: Regular Rhythm and S1/S2
GI: Soft
Neuro: AO x 3 and No Motor Deficits
Psych: Calm
Data Reviewed
-
Labs: Labs Reviewed by me
[2024-03-31 19:17] VITALS: BP 158/59
[2024-03-31] MEDS: ULTRAM 25 MG PO (20:38)
[2024-03-31] MEDS: KLONOPIN 1 MG PO (22:11)
[2024-03-31 22:35] VITALS: BP 155/66
[2024-03-31 23:12] VITALS: BP 158/53
[2024-04-01] VITALS (7 sets, daily range): BP systolic 144–167; BP diastolic 56–86; PULSE 58; O2SAT 96; BMI 40.8
[2024-04-01] MEDS: SYNTHROID 50 MCG PO (06:29)
[2024-04-01] MEDS: TYLENOL 650 MG PO (06:30)
[2024-04-01] MEDS: LIPITOR 10 MG PO (07:48)
[2024-04-01] MEDS: SINEMET 25-100 1 TABLET PO ×3 (07:48→22:24)
[2024-04-01] MEDS: PROCARDIA XL (EXTENDED RELEASE) 30 MG PO ×2 (07:48→22:23)
[2024-04-01] MEDS: MIRALAX 8.5 GRAMS PO (07:48)
[2024-04-01] MEDS: APRESOLINE 25 MG PO ×2 (07:48→22:24)
[2024-04-01] MEDS: TRICOR 48 MG PO (07:48)
[2024-04-01 08:00] LABS: Blood Urea Nitrogen 51 mg/dl (7-17); Calcium 9.9 mg/dl (8.4-10.2); Carbon Dioxide 29 mmol/L (22-30); Chloride 105 mmol/L (98-107); Estimated Creatinine Clearance 35 ml/min; Glucose 76 mg/dl (70-99); Potassium 4.2 mmol/L (3.5-5.1); Sodium 142 mmol/L (135-145); eGFR 34.58
--- NOTE | 2024-04-01 09:09 | W.PN.HOSP.TC ---
Today's Communication/Plan
-
ID Eval
Assessment / Plan
Assessment / Plan
A/P:
Hypothermia:
Normalized
Thyroid function abnormal in the sense she is more hyperT state and should be elevating her Temp.
No obvious signs of infection
Lower extremity weakness and back pain:
Rule out related to lumbar disc disease-MRI of the lumbar spine shows T12/L1 intervertebral disc abnormality with a differential of anterior disc herniation versus discitis. There is also L5-S1 intervertebral disc abnormality concerning more for
degenerative disc disease than discitis.
clinically patient afebrile And nontoxic.
Neurosurgery/spine input noted -recommends ID eval
Mild elevation in inflammatory markers - consult ID
Cervical cord stenosis with compression-apart from mild neck pain she has complaining no radiculopathy.. NSG recommends no interventions.
Toxic metabolic encephalopathy:
Resolved
Okay to continue using benzodiazepines judiciously
LUIS M on CKD stage IIIb:
Encourage oral intake
Nephrology following
Creatinine at baseline
History of VTE:
Continue Eliquis -hold eliquis in anticipation of spinal dx procedures
Hypertension:
cw antihypertensives
Monitor blood pressure and adjust medications accordingly
Hyperlipidemia:
Continue home statins
Hypothyroidism:
Reduced thyroid dose given low TSH
Recheck TFT in 6 weeks
Obesity:
Lifestyle changes modification
DVT prophylaxis:
Eliquis
CODE STATUS:
DNR
DC to rehab when medically stable
03/31 discussed with son at bedside and updated findings and dx plan.
Anticipated Discharge: 24 - 48 hours
Subjective/Interval History
-
Date of Service: April 01, 2024
She took a pain medication last night and slept pretty well. This morning she had some back pain again when she was getting moved.
No fever or chills.
Objective Data
-
Labs:
Laboratory Results
04/01/24
06:57
Sodium 142
Potassium 4.2
Chloride 105
Carbon Dioxide 29
BUN 51 H
Creatinine 1.5 H
Glucose 76
Calcium 9.9
Vital Signs:
Vital Signs
Temp Pulse Resp BP Pulse Ox
98.9 F 55 16 152/60 94
04/01/24 03:25 04/01/24 07:49 04/01/24 07:49 04/01/24 07:49 04/01/24 07:49
I&O
03/31/24 04/01/24 04/02/24
06:59 06:59 06:59
Intake Total 1200 / 1200 480 / 480
Output Total 600 / 600
Balance 1200 / 1200 -120 / -120
Review of Systems
-
Constitutional: Denies Chills
Respiratory: Denies Trouble Breathing
Cardiac: Denies Chest Pain
Abdomen/GI: Denies Abdominal Pain, Nausea or Vomiting
Neuro: Denies Weakness
Physical Exam
-
General: No Apparent Distress
Respiratory: Non Labored Respirations; Negative Accessory Resp Muscle Use
Cardiac: Regular Rhythm and S1/S2
GI: Soft
Neuro: AO x 3 and No Motor Deficits
Psych: Calm
--- NOTE | 2024-04-01 11:01 | W.PN.NEPH.PH ---
Today's Communication / Plan
-
s/o
Assessment/Plan
-
Assessment
Weakness
Tremor
Hypertension
Lymphedema
CKD 3B (1.6)
LUIS M
Hypernatremia
Decreased appetite
Obesity
Plan
Follow BMP
holding Lasix for now
no IVF needed
will s/o. please call with questions
-
-
Date of Service: April 01, 2024
CC / HPI / ROS
-
Chief Complaint:
LUIS M
History of Present Illness:
hemodynamically stable
LUIS M/Cr stable at 1.5
Sodium stable at 142
Review of Systems:
back pain still
no fevers
Labs
-
Labs:
WBC 4.5 10^3/uL (4.8-10.8) L 03/29/24 06:27
RBC 3.95 10^6/uL (4.20-5.40) L 03/29/24 06:27
Hgb 11.0 g/dL (12.0-16.0) L 03/29/24 06:27
Hct 33.9 % (37.0-47.0) L 03/29/24 06:27
Plt Count 177 10^3/uL (130-400) 03/29/24 06:27
Sodium 142 mmol/L (135-145) 04/01/24 06:57
Potassium 4.2 mmol/L (3.5-5.1) 04/01/24 06:57
Chloride 105 mmol/L (98-107) 04/01/24 06:57
Carbon Dioxide 29 mmol/L (22-30) 04/01/24 06:57
BUN 51 mg/dl (7-17) H 04/01/24 06:57
Creatinine 1.5 mg/dL (0.6-1.0) H 04/01/24 06:57
eGFR 34.58 04/01/24 06:57
Glucose 76 mg/dl (70-99) 04/01/24 06:57
Calcium 9.9 mg/dl (8.4-10.2) 04/01/24 06:57
Phosphorus 3.2 mg/dl (2.5-4.5) 03/28/24 04:06
Albumin 3.8 g/dl (3.5-5.0) 03/28/24 04:06
Physical Exam
-
Vital Signs:
Vital Signs
Temp Pulse Resp BP Pulse Ox
98.9 F 55 16 152/60 94
04/01/24 03:25 04/01/24 07:49 04/01/24 07:49 04/01/24 07:49 04/01/24 07:49
Cardiovascular:: Regular rate and rhythm
Respiratory:: Bilateral: Coarse
Lung Excursion:: Normal
Abdomen:: Nontender and Soft
Bowel Sounds:: Normal
Extremity Edema:: +1: Bilateral:
--- NOTE | 2024-04-01 15:28 | CON.ID ---
Consultation
-
Date/Time Consultation Requested: 03/31/2024 1607
Date/Time Consultation Performed: 04/01/2024 1500
Requesting Provider: Dr. Krishnamurthy
Performing Provider: Dr. Rouse
Reason for Consultation: Low back pain; ?discitis
Chief Complaint / Past History
History of Present Illness
Bindu Benson is an 83-year-old female being evaluated at the request of Dr. Krishnamurthy in regards to possible lumbar and thoracic discitis. History is obtained from chart review, along with patient interview.
The patient reports that she resides alone in the local area. She notes that her approximately 2 years ago, but she is looked after by her children. She reportedly received the flu and COVID-vaccine last week, and on 03/29
presented to the emergency room following the development of lower extremity weakness, shakiness and some back pain. She actually admits though that she has had back pain for approximately the past month or so, noting that her son recently replaced
her back spring with something that allows for the bed to be lower, and she has been having to get in and out of the bed, but with some new discomfort.
Admission, she was not noted to have any leukocytosis, but ultimately her low back pain was evaluated with MRI, which notes some abnormalities in the high lumbar and thoracic region concerning for either disc bulge or discitis. Infectious Diseases
is asked to comment on further antimicrobial recommendations.
The patient denies any fevers or chills prior to admission. She notes no recent trauma or fall. She denies any recent injections to the area. She notes that her low back pain has actually improved since admission to the hospital.
Past History
Additional Past Medical History:
HTN
Hypothyroidism
Hx DVT/PE
Prediabetes
Lymphedema
CKD
Additional Past Surgical History:
KIMBERLY
Partial colectomy
Cholecystectomy
Appendectomy
Allergy History:
codeine Allergy (Verified 08/13/23 15:43)
Nausea
erythromycin base Allergy (Verified 03/27/24 18:34)
Unknown
ondansetron Allergy (Verified 08/13/23 15:43)
Unknown
Penicillins Allergy (Verified 08/13/23 15:43)
Unknown
prochlorperazine [From Compazine] Allergy (Verified 08/13/23 15:43)
Unknown
sertraline Allergy (Verified 08/13/23 15:43)
Nausea
Medications Reviewed: Yes
Current Antibiotics:
None
Social History
Tobacco: Non-Smoker
Alcohol: None
Drug: None
Personal:
Living: Alone
Employment: Retired
Family History
Family History: Not Pertinent
Review of Systems
Vital Signs
Temp Pulse Resp BP Pulse Ox
98.9 F 58 16 144/86 96
04/01/24 03:25 04/01/24 11:15 04/01/24 11:15 04/01/24 11:15 04/01/24 11:15
Physical Exam
Physical Exam
Constitutional: No Acute Distress, Comfortable, Non-toxic and Obese
Head: Normocephalic
Eyes: Pupils Equal, Pupils Round, No Conjunctival Hemorrhage and Sclera Anicteric
Oral: No Thrush and No Ulcers
Cardiovascular: Regular Rate and S1/S2; Negative S3/S4
Pulmonary: Clear; Negative Wheezes, Rales or Rhonchi
Gastrointestinal: Soft, Non Tender, Non Distended, Normal Bowel Sounds, No Rebound and No Guarding
Extremities: Edema; Negative Cyanosis, Erythema, Splinter Hemorrhage or Janeway Lesions
Musculoskeletal: Spinal Tenderness (low back area)
Skin: Warm and Dry; Negative Rash or Jaundice
Neurological: Awake and Alert
Psychological: Calm
Lab / Diagnostic Study Results
03/29/24 06:27
04/01/24 06:57
Abs Immat Gran (auto) 0.0 10^3/uL (0-0.05) 03/27/24 19:49
Absolute Neuts (auto) 3.5 10^3/uL (1.4-6.5) 03/27/24 19:49
Absolute Lymphs (auto) 1.5 10^3/uL (1.2-3.4) 03/27/24 19:49
Absolute Monos (auto) 0.5 10^3/uL (0.1-0.6) 03/27/24 19:49
Absolute Basos (auto) 0.0 10^3/uL (0-0.2) 03/27/24 19:49
Immature Gran % 0.2 % (0-0.5) 03/27/24 19:49
Neutrophils % 62.2 % (42.2-75.2) 03/27/24 19:49
Lymphocytes % 27.5 % (20.5-51.1) 03/27/24 19:49
Monocytes % 8.1 % (1.7-9.3) 03/27/24 19:49
Eosinophils % 1.6 % (0-6) 03/27/24 19:49
Basophils % 0.4 % (0-2) 03/27/24 19:49
ESR 48 mm/hour (0-20) H 03/31/24 06:54
Lactic Acid 0.8 mmol/L (0.7-2.0) 03/27/24 20:02
C-Reactive Protein 15.70 mg/L (0.0-10.00) H 03/31/24 06:54
Procalcitonin < 0.05 ng/ml (0.0-0.25) 03/27/24 23:22
Microbiology Results
Micro:
03/27/24 20:02 Blood Culture - Preliminary
Blood/Venous No Growth in 4 days- Final report to follow
03/27/24 20:02 Blood Culture - Preliminary
Blood/Venous No Growth in 4 days- Final report to follow
Imaging:
03/29/2024 Plain film lumbar spine: Vertebral body heights are maintained with no evidence for compression fracture. No radiographic evidence to suggest discitis. Degenerative changes of the lumbar spine as described.
03/29/2024 MRI cervical spine: There is severe spinal cord compression and severe central canal stenosis at the C5/C6 secondary to large central disc herniation. There is moderate edema or myelomalacia in the cervical spinal cord at the C5/C6
level. There is also a moderate-sized right central disc herniation at C3/C4 causing moderate spinal cord compression. Please see full dictation for additional detail.
03/29/2024 MRI lumbar spine without contrast: A small amount of fluid signal intensity in the anterior aspect of the T12/L1 intervertebral disc, with mild adjacent acute endplate bone marrow edema and mild adjacent soft tissue edema. Diagnostic
possibilities include anterior disc herniation, or less likely an acute infectious discitis. Abnormalities were also seen at the L5/S1 intervertebral disc area with the same diagnostic possibilities.
Assessment / Plan
Low back pain
Abnormal MRI, with concern for discitis
Mildly elevated inflammatory markers (ESR, CRP)
CKD; stable
HTN
Hypothyroidism
Hx DVT/PE
Prediabetes
Lymphedema
Recommendations:
Case discussed extensively with Hospitalist.
Given history and the findings on radiology, discitis is less likely, it remains a diagnostic possibility and will need to be worked up.
Agree with IR consultation for biopsy of the area while off of antibiotics.
Will follow cultures following biopsy to determine whether antibiotics are necessary.
Care Review
Plan reviewed with: Physician (Hospitalist)
[2024-04-01] MEDS: KLONOPIN 1 MG PO (22:23)
[2024-04-02 03:49] VITALS: BP 157/60
[2024-04-02] MEDS: SYNTHROID 50 MCG PO (05:54)
[2024-04-02 07:53] VITALS: BP 175/77
[2024-04-02] MEDS: LIPITOR 10 MG PO (09:44)
[2024-04-02] MEDS: SINEMET 25-100 1 TABLET PO ×3 (09:44→21:11)
[2024-04-02] MEDS: PROCARDIA XL (EXTENDED RELEASE) 30 MG PO ×2 (09:45→21:11)
[2024-04-02] MEDS: TRICOR 48 MG PO (09:45)
[2024-04-02] MEDS: APRESOLINE 25 MG PO ×2 (09:45→21:11)
[2024-04-02] MEDS: MIRALAX 8.5 GRAMS PO (09:45)
--- NOTE | 2024-04-02 11:12 | W.PN.HOSP.TC ---
Today's Communication/Plan
-
Await IR input regarding diagnostic aspiration of L spine
Assessment / Plan
Assessment / Plan
A/P:
Hypothermia:
Normalized
Thyroid function abnormal in the sense she is more hyperT state and should be elevating her Temp.
No obvious signs of infection
Lower extremity weakness and back pain:
Rule out related to lumbar disc disease-MRI of the lumbar spine shows T12/L1 intervertebral disc abnormality with a differential of anterior disc herniation versus discitis. There is also L5-S1 intervertebral disc abnormality concerning more for
degenerative disc disease than discitis.
clinically patient afebrile And nontoxic.
Neurosurgery/spine input noted -recommends ID eval
Mild elevation in inflammatory markers - consulted ID - IR now consulted for diagnositc aspiration of the abnormal L spine areas.
Cervical cord stenosis with compression-apart from mild neck pain she has complaining no radiculopathy.. NSG recommends no interventions.
Toxic metabolic encephalopathy:
Resolved
Okay to continue using benzodiazepines judiciously
LUIS M on CKD stage IIIb:
Encourage oral intake
Nephrology following
Creatinine at baseline
History of VTE:
Continue Eliquis -hold eliquis in anticipation of spinal dx procedures
Hypertension:
cw antihypertensives
Monitor blood pressure and adjust medications accordingly
Hyperlipidemia:
Continue home statins
Hypothyroidism:
Reduced thyroid dose given low TSH
Recheck TFT in 6 weeks
Obesity:
Lifestyle changes modification
DVT prophylaxis:
Eliquis
CODE STATUS:
DNR
DC to rehab when medically stable
1
Anticipated Discharge: > 48 hours
Subjective/Interval History
-
Date of Service: April 02, 2024
Remains to have low back pain. She thought there was something in the mattress yesterday and was causing bit more pain and she could not settle and sleep much.
No fever chills.
Objective Data
-
Vital Signs:
Vital Signs
Temp Pulse Resp BP Pulse Ox
97.6 F 61 16 175/77 96
04/02/24 07:53 04/02/24 07:53 04/02/24 07:53 04/02/24 07:53 04/02/24 07:53
I&O
04/01/24 04/02/24 04/03/24
06:59 06:59 06:59
Intake Total 480 / 480 1320 / 1320
Output Total 600 / 600
Balance -120 / -120 1320 / 1320
Review of Systems
-
Respiratory: Denies Trouble Breathing
Cardiac: Denies Chest Pain
Abdomen/GI: Denies Abdominal Pain, Nausea or Vomiting
Neuro: Denies Dizzy
Physical Exam
-
General: No Apparent Distress
Respiratory: Non Labored Respirations; Negative Accessory Resp Muscle Use
Cardiac: Regular Rhythm and S1/S2
Neuro: AO x 3
[2024-04-02 11:57] VITALS: BP 151/66
--- NOTE | 2024-04-02 12:27 | CM ---
Addendum entered by JEWEL Zavala 04/02/24 16:40:
Patient's daughter stated that family will consider alternate SNF choices. She expressed concern over patient's discharge. She was advised that patient is medically stable per attending but will relay concerns. Kourtney in admissions at [facility] and
Tonya at [facility] stated that they will most likely have beds early next week. Family will discuss other SNF options.
Addendum entered by JEWEL Zavala 04/02/24 13:03:
Received notification from attending that patient is cleared for discharge today. Placed a call to [facility] and there is no availability until next week. Placed a call to Cookie at [facility] and there are no beds for today. Placed a
call to [facility] and spoke with Wilma Walker in admissions who stated that they have no bed availability today. Will discuss options with patient/family.
Original Note:
Reviewed chart, patient not medically ready for discharge. Will start auth closer to the time that she will be cleared. Placed a call to Tonya at [facility] admissions who stated to call her for bed availability when discharge is more imminent.
Plan: Case management will continue to follow and assist with discharge planning. Hope[facility] bed will still be available at [facility] when patient is cleared.
[2024-04-02 15:54] VITALS: BP 161/64
--- NOTE | 2024-04-02 17:08 | W.PN.ID1 ---
Date of Service
Date of Service: April 02, 2024
Today's Communication
Observe off antibiotics. Await possible biopsy
Assessment / Plan
Low back pain
Abnormal MRI, with concern for discitis
Mildly elevated inflammatory markers (ESR, CRP)
CKD; stable
HTN
Hypothyroidism
Hx DVT/PE
Prediabetes
Lymphedema
Recommendations:
Given history, and the findings on radiology, discitis is less likely, although it remains a diagnostic possibility and will need to be worked up.
Agree with IR consultation for biopsy of the area while off of antibiotics.
Will follow cultures following biopsy to determine whether antibiotics are necessary.
����������������������������������������������������������
Chief Complaint
-: Other (Back discomfort; ?discitis)
Subjective / Review of Systems
Review of Systems: No Fever and No Chills
Vital Signs / Physical Exam
Vital Signs
Vital Signs
Temp Pulse Resp BP Pulse Ox
95.6 F L 58 16 161/64 97
04/02/24 16:52 04/02/24 15:54 04/02/24 15:54 04/02/24 15:54 04/02/24 15:54
Physical Exam
Constitutional: No Acute Distress, Comfortable and Non-toxic
Eyes: No Conjunctival Hemorrhage
Cardiovascular: S1/S2; Negative S3/S4
Pulmonary: Coarse
Gastrointestinal: Soft and Non Tender
Extremities: Edema; Negative Cyanosis or Erythema
Neurological: Awake and Alert
Psychological: Calm
Objective Data
Lab Data
Lab Results
03/29/24 06:27
04/01/24 06:57
ESR 48 mm/hour (0-20) H 03/31/24 06:54
Estimated Creat Clear 35 ml/min 04/01/24 06:57
Lactic Acid 0.8 mmol/L (0.7-2.0) 03/27/24 20:02
Total Bilirubin 0.2 mg/dl (0.2-1.3) 03/28/24 04:06
AST 39 U/L (14-36) H 03/28/24 04:06
ALT 22 U/L (0-35) 03/28/24 04:06
Alkaline Phosphatase 56 U/L (38-126) 03/28/24 04:06
C-Reactive Protein 15.70 mg/L (0.0-10.00) H 03/31/24 06:54
Most recent labs reviewed.
Micro Results:
03/27/24 20:02 Blood Culture - Final
Blood/Venous No Growth - Final Report
03/27/24 20:02 Blood Culture - Final
Blood/Venous No Growth - Final Report
Imaging:
03/29/2024 Plain film lumbar spine: Vertebral body heights are maintained with no evidence for compression fracture. No radiographic evidence to suggest discitis. Degenerative changes of the lumbar spine as described.
03/29/2024 MRI cervical spine: There is severe spinal cord compression and severe central canal stenosis at the C5/C6 secondary to large central disc herniation. There is moderate edema or myelomalacia in the cervical spinal cord at the C5/C6
level. There is also a moderate-sized right central disc herniation at C3/C4 causing moderate spinal cord compression. Please see full dictation for additional detail.
03/29/2024 MRI lumbar spine without contrast: A small amount of fluid signal intensity in the anterior aspect of the T12/L1 intervertebral disc, with mild adjacent acute endplate bone marrow edema and mild adjacent soft tissue edema. Diagnostic
possibilities include anterior disc herniation, or less likely an acute infectious discitis. Abnormalities were also seen at the L5/S1 intervertebral disc area with the same diagnostic possibilities.
[2024-04-02 19:54] VITALS: BP 150/61
[2024-04-02] MEDS: KLONOPIN 1 MG PO (21:11)
[2024-04-02] MEDS: DESENEX/MITRAZOL/ZEASORB 1 APPLIC TOPICAL (21:13)
[2024-04-02 23:29] VITALS: BP 107/72
[2024-04-03] VITALS (7 sets, daily range): BP systolic 138–179; BP diastolic 52–75; BMI 40.6
[2024-04-03] MEDS: SYNTHROID 50 MCG PO (06:01)
[2024-04-03] MEDS: DESENEX/MITRAZOL/ZEASORB 1 APPLIC TOPICAL ×2 (10:02→19:40)
[2024-04-03] MEDS: MIRALAX 8.5 GRAMS PO (10:05)
[2024-04-03] MEDS: APRESOLINE 25 MG PO ×2 (10:07→19:39)
[2024-04-03] MEDS: SINEMET 25-100 1 TABLET PO ×3 (10:07→21:46)
[2024-04-03] MEDS: PROCARDIA XL (EXTENDED RELEASE) 30 MG PO ×2 (10:07→19:40)
[2024-04-03] MEDS: LIPITOR 10 MG PO (10:07)
[2024-04-03] MEDS: TRICOR 48 MG PO (10:07)
--- NOTE | 2024-04-03 12:22 | W.PN.HOSP.TC ---
Today's Communication/Plan
-
DC
Assessment / Plan
Assessment / Plan
A/P:
Hypothermia:
Normalized
Thyroid function abnormal in the sense she is more hyperT state and should be elevating her Temp.
No obvious signs of infection
Lower extremity weakness and back pain:
Rule out related to lumbar disc disease-MRI of the lumbar spine shows T12/L1 intervertebral disc abnormality with a differential of anterior disc herniation versus discitis. There is also L5-S1 intervertebral disc abnormality concerning more for
degenerative disc disease than discitis.
clinically patient afebrile And nontoxic.
Neurosurgery/spine input noted -recommends ID eval
Mild elevation in inflammatory markers - consulted ID - IR now consulted for diagnositc aspiration of the abnormal L spine areas.
DW Dr Leslie yesterday - Given appearence and comparision of 03/29 lumbar spine xray with 03/05/2023 xrays ,she may have fractured the anteriorl osteophyte at that level and doesnt recommend aspiration at this time. Advised to follow clinically .
Cervical cord stenosis with compression-apart from mild neck pain she has complaining no radiculopathy.. NSG recommends no interventions.
Toxic metabolic encephalopathy:
Resolved
Okay to continue using benzodiazepines judiciously
LUIS M on CKD stage IIIb:
Encourage oral intake
Nephrology following
Creatinine at baseline
History of VTE:
Continue Eliquis
Hypertension:
cw antihypertensives
Monitor blood pressure and adjust medications accordingly
Hyperlipidemia:
Continue home statins
Hypothyroidism:
Reduced thyroid dose given low TSH
Recheck TFT in 6 weeks
Obesity:
Lifestyle changes modification
DVT prophylaxis:
Eliquis
CODE STATUS:
DNR
Medically stable for DC to rehab when bed available.
Anticipated Discharge: Today
Subjective/Interval History
-
Date of Service: April 03, 2024
Feels bit better with her back pain.
No new symptoms.
Objective Data
-
Vital Signs:
Vital Signs
Temp Pulse Resp BP Pulse Ox
97.6 F 57 17 165/52 95
04/03/24 11:32 04/03/24 11:32 04/03/24 11:32 04/03/24 11:32 04/03/24 11:32
I&O
04/02/24 04/03/24 04/04/24
06:59 06:59 06:59
Intake Total 1320 / 1320 1080 / 1080
Balance 1320 / 1320 1080 / 1080
Review of Systems
-
Constitutional: Denies Fever
Respiratory: Denies Trouble Breathing
Cardiac: Denies Chest Pain
Abdomen/GI: Denies Abdominal Pain, Nausea, Vomiting or Constipated
Neuro: Denies Dizzy
Physical Exam
-
General: No Apparent Distress
Respiratory: Non Labored Respirations; Negative Accessory Resp Muscle Use
Cardiac: Regular Rhythm and S1/S2
GI: Soft
Neuro: AO x 3
Psych: Calm; Negative Confused
--- NOTE | 2024-04-03 16:59 | CM ---
patient is ready for dc. i called [facility] and [facility].no beds available this weekend.. [facility] will not have a bed untl mid week.Plan:dc to snf when bed available.
[2024-04-03] MEDS: ELIQUIS 2.5 MG PO (19:39)
[2024-04-03] MEDS: KLONOPIN 1 MG PO (21:46)
[2024-04-04 03:15] VITALS: BP 131/59
[2024-04-04] MEDS: SYNTHROID 50 MCG PO (05:29)
[2024-04-04 06:24] VITALS: BMI 39.9
[2024-04-04 07:00] VITALS: BP 144/51
[2024-04-04] MEDS: ELIQUIS 2.5 MG PO ×2 (08:01→19:56)
[2024-04-04] MEDS: APRESOLINE 25 MG PO ×2 (08:01→19:56)
[2024-04-04] MEDS: LIPITOR 10 MG PO (08:01)
[2024-04-04] MEDS: SINEMET 25-100 1 TABLET PO ×3 (08:01→21:22)
[2024-04-04] MEDS: TRICOR 48 MG PO (08:01)
[2024-04-04] MEDS: PROCARDIA XL (EXTENDED RELEASE) 30 MG PO ×2 (08:01→19:56)
[2024-04-04] MEDS: MIRALAX 8.5 GRAMS PO (08:02)
[2024-04-04] MEDS: DESENEX/MITRAZOL/ZEASORB 1 APPLIC TOPICAL ×2 (08:03→19:56)
[2024-04-04 11:00] VITALS: BP 156/62
--- NOTE | 2024-04-04 14:02 | W.PN.HOSP.TC ---
Today's Communication/Plan
-
Ongoing dispo efforts
Assessment / Plan
Assessment / Plan
A/P:
Hypothermia:
Normalized
Thyroid function abnormal in the sense she is more hyperT state and should be elevating her Temp.
No obvious signs of infection
Lower extremity weakness and back pain:
Rule out related to lumbar disc disease-MRI of the lumbar spine shows T12/L1 intervertebral disc abnormality with a differential of anterior disc herniation versus discitis. There is also L5-S1 intervertebral disc abnormality concerning more for
degenerative disc disease than discitis.
clinically patient afebrile And nontoxic.
Neurosurgery/spine input noted -recommends ID eval
Mild elevation in inflammatory markers - consulted ID - IR now consulted for diagnositc aspiration of the abnormal L spine areas.
DW Dr Leslie yesterday - Given appearence and comparision of 03/29 lumbar spine xray with 03/05/2023 xrays ,she may have fractured the anteriorl osteophyte at that level and doesnt recommend aspiration at this time. Advised to follow clinically .
Cervical cord stenosis with compression-apart from mild neck pain she has complaining no radiculopathy.. NSG recommends no interventions.
Toxic metabolic encephalopathy:
Resolved
Okay to continue using benzodiazepines judiciously
LUIS M on CKD stage IIIb:
Encourage oral intake
Nephrology following
Creatinine at baseline
History of VTE:
Continue Eliquis
Hypertension:
cw antihypertensives
Monitor blood pressure and adjust medications accordingly
Hyperlipidemia:
Continue home statins
Hypothyroidism:
Reduced thyroid dose given low TSH
Recheck TFT in 6 weeks
Obesity:
Lifestyle changes modification
DVT prophylaxis:
Eliquis
CODE STATUS:
DNR
Medically stable for DC to rehab when bed available.
Anticipated Discharge: Within 24 hours
Subjective/Interval History
-
Date of Service: April 04, 2024
No new symptoms
Back pain better
Objective Data
-
Vital Signs:
Vital Signs
Temp Pulse Resp BP Pulse Ox
97.5 F 59 18 156/62 98
04/04/24 11:00 04/04/24 11:00 04/04/24 11:00 04/04/24 11:00 04/04/24 11:00
I&O
04/03/24 04/04/24 04/05/24
06:59 06:59 06:59
Intake Total 1080 / 1080 960 / 960
Balance 1080 / 1080 960 / 960
Physical Exam
-
General: Comfortable
Respiratory: Non Labored Respirations; Negative Accessory Resp Muscle Use
Cardiac: Regular Rhythm and S1/S2; Negative Tachycardic
GI: Soft
Neuro: AO x 3
Psych: Calm; Negative Confused or Agitated
[2024-04-04 15:00] VITALS: BP 157/60
[2024-04-04 19:31] VITALS: BP 155/58
[2024-04-04] MEDS: KLONOPIN 1 MG PO (21:22)
[2024-04-04 23:10] VITALS: BP 139/55
[2024-04-05 03:00] VITALS: BP 156/59
[2024-04-05 06:00] VITALS: BMI 40.3
[2024-04-05] MEDS: SYNTHROID 50 MCG PO (06:02)
[2024-04-05 07:16] VITALS: BP 153/63
[2024-04-05] MEDS: MIRALAX 8.5 GRAMS PO (07:37)
[2024-04-05] MEDS: SINEMET 25-100 1 TABLET PO ×2 (07:37→15:17)
[2024-04-05] MEDS: LIPITOR 10 MG PO (07:38)
[2024-04-05] MEDS: PROCARDIA XL (EXTENDED RELEASE) 30 MG PO (07:38)
[2024-04-05] MEDS: ELIQUIS 2.5 MG PO (07:38)
[2024-04-05] MEDS: TRICOR 48 MG PO (07:38)
[2024-04-05] MEDS: DESENEX/MITRAZOL/ZEASORB 1 APPLIC TOPICAL (07:46)
--- NOTE | 2024-04-05 09:05 | W.PN.HOSP.TC ---
Today's Communication/Plan
-
Discharge planning today
Assessment / Plan
Assessment / Plan
Physical exam:
General: Well Developed, Well Nourished and No Apparent Distress
HEENT: Normocephalic, Atraumatic and Moist Mucous Membranes
Respiratory: Clear to Auscultation; Negative Wheezes, Rales or Rhonchi
Cardiac: Regular Rhythm and S1/S2
GI: Soft, Nontender and Nondistended
Musculoskeletal: No Clubbing, No Cyanosis and No Edema
Neuro: Awake, Alert and Oriented
Psych: Calm
A/P:
Hypothermia:
Normalized
Thyroid function abnormal in the sense she is more hyperT state and should be elevating her Temp.
No obvious signs of infection
Lower extremity weakness and back pain:
Rule out related to lumbar disc disease-MRI of the lumbar spine shows T12/L1 intervertebral disc abnormality with a differential of anterior disc herniation versus discitis. There is also L5-S1 intervertebral disc abnormality concerning more for
degenerative disc disease than discitis.
clinically patient afebrile And nontoxic.
Neurosurgery/spine input noted -recommends ID eval
Mild elevation in inflammatory markers - consulted ID - IR now consulted for diagnositc aspiration of the abnormal L spine areas.
DW Dr Leslie yesterday by Dr. Krishnamurthy- Given appearence and comparision of 03/29 lumbar spine xray with 03/05/2023 xrays ,she may have fractured the anteriorl osteophyte at that level and doesnt recommend aspiration at this time. Advised to follow
clinically.
ID cleared her for discharge.
Planning to discharge to skilled rehab today.
Cervical cord stenosis with compression-apart from mild neck pain she has complaining no radiculopathy.. NSG recommends no interventions.
Toxic metabolic encephalopathy:
Resolved
Okay to continue using benzodiazepines judiciously
LUIS M on CKD stage IIIb:
Encourage oral intake
Nephrology following
Creatinine at baseline
History of VTE:
Continue Eliquis
Hypertension:
cw antihypertensives
Monitor blood pressure and adjust medications accordingly
Hyperlipidemia:
Continue home statins
Hypothyroidism:
Reduced thyroid dose given low TSH
Recheck TFT in 6 weeks
Obesity:
Lifestyle changes modification
DVT prophylaxis:
Eliquis
CODE STATUS:
DNR
Medically stable for DC to rehab when bed available.
Anticipated Discharge: Today
Subjective/Interval History
-
Date of Service: April 05, 2024
Patient denies any new complaints. No nausea or vomiting or diarrhea. Afebrile. Back pain more tolerable.
Objective Data
-
Vital Signs:
Vital Signs
Temp Pulse Resp BP Pulse Ox
98 F 60 16 153/63 98
04/05/24 07:16 04/05/24 07:16 04/05/24 07:16 04/05/24 07:16 04/05/24 07:16
I&O
04/04/24 04/05/24 04/06/24
06:59 06:59 06:59
Intake Total 960 / 960 240 / 240
Balance 960 / 960 240 / 240
[2024-04-05] MEDS: APRESOLINE 25 MG PO (09:29)
[2024-04-05 11:02] VITALS: BP 139/69
[2024-04-05 11:14] VITALS: BP 139/69; PULSE 60
--- NOTE | 2024-04-05 11:24 | CM ---
Addendum entered by JEWEL Zavala 04/05/24 14:12:
P/U time 16:30. Daughter Erin updated.
Addendum entered by JEWEL Zavala 04/05/24 12:04:
Placed a call to [facility] and received auth# from a reviewer stated that patient is authorized for 5 days skilled NRD 04/09 [id number]
Auth# [id number]
This information was conveyed to Kourtney in admissions at [facility].
Transfer sheet, and medical necessity completed and provided to [facility] community engagement manager.
IMM reviewed with daughter and is on chart.
Original Note:
Reviewed chart. Patient medically stable for discharge. Placed a call to [facility] and spoke with Kourtney in admissions, who confirmed ability to accept patient today. Placed a call to patient's daughter, Erin, who agreed with discharge to [facility].
Attending updated about bed availability if she is medically cleared.
Will initiate auth.
[id number] for [facility] and attending at facility
4th floor [facility] # for report [phone] fax# [phone]
Plan: Case management will continue to follow and assist with discharge planning. [facility] when auth is obtained and upon medical clearance.
--- NOTE | 2024-04-05 13:25 | W.DCSUMMARY ---
Discharge Summary
Discharge Data
Date of Admission: 03/27/24
Date of Discharge: 04/05/24
-
Pending Results: No
Hospital Course
Patient 83 years old female came with history of multiple comorbidities came into the hospital with hypothermia and lower extremity weakness and back pain and toxic encephalopathy and LUIS M on CKD. Patient was evaluated by neurology who started her
on levodopa for possible evidence of parkinsonism. She had MRI of the cervical and lumbar spine that showed some abnormalities with cervical myelopathy and lumbar spondylosis and radiculopathy. Initially findings on the lumbar MRI were felt to be
probably infectious but after discussion with radiology and ID consulted there were less likely infections and it was not pursued any biopsy. The findings of lumbar and cervical area were more likely DJD related and discs and canal stenosis.
Neurosurgery consulted and they will follow her up as outpatient. Diuretics were on hold and restarted upon discharge. Nephrology evaluated the patient as well. Patient did well rest of hospital stay. No infectious etiology found. She has
remained afebrile and hemodynamically stable. Thyroid medications doses were adjusted and thyroid function tests can be reassessed in 6 weeks. Patient is being discharged to skilled rehab in relatively stable condition.
Discharge duration: 35 minutes
Discharge Plan
-
Patient Disposition: Care Home/SNF
Discharge Diagnosis/Procedures: Hypothermia. Back pain. Bilateral lower extremity weakness. Toxic metabolic encephalopathy. Acute kidney injury on chronic kidney disease stage IIIb. Parkinsonism. Cervical stenosis and osteoarthritis of lower
back with intervertebral disc pathology.
Diet: Low Cholesterol
Activity: As tolerated
Blood Work: Please PCP to order CBC, BMP within 1 week. Please also check thyroid function test within 6 weeks.
Referrals:
Primary care, provider [Other] (See less than 1 week)
Patrick Mac DO [Active] - in two to four weeks
Paulette Pelaez MD [Active] - in one to two weeks
Micky Rouse DO [Active] - in four to six weeks
Anirudh Verma MD [Active] - in two to three weeks
Prescriptions:
New
tramadol 50 mg Tablet
25 mg PO Q6HPRN PRN (Reason: moderate pain) Qty: 4 0RF
levothyroxine 50 mcg Tablet
50 mcg PO DAILY @ 0600 30 Days Qty: 0 0RF
acetaminophen 325 mg Tablet
650 mg PO Q6HPRN PRN (Reason: mild pain/ fever>100.5F) Qty: 0 0RF
carbidopa-levodopa 25-100 mg Tablet
1 tab PO TID 30 Days Qty: 0 0RF
Continued
polyethylene glycol 3350 [Miralax] 17 gram Powder In Packet
8.5 g PO DAILY
clonazepam 1 mg Tablet
1 mg PO HS
hydralazine 25 mg Tablet
25 mg PO BID
fenofibrate 160 mg Tablet
160 mg PO DAILY
cholecalciferol (vitamin D3) [Vitamin D3] 125 mcg (5,000 unit) Tablet
125 mcg PO TH
Eliquis 2.5 mg Tablet
2.5 mg PO BID
[place] Tears
1 drp BOTH EYES HS
nifedipine 30 mg Tablet Extended Release
30 mg PO BID Qty: 60 0RF
furosemide [Lasix] 20 mg Tablet
20 mg PO DAILY
therapeutic multivitamin Tablet
1 tab PO DAILY
lovastatin 10 mg Tablet
10 mg PO DAILY
Discontinued
acetaminophen 500 mg Tablet
1,000 mg PO Q6H PRN (Reason: leg PAIN)
levothyroxine 75 mcg Tablet
75 mcg PO DAILY AT 0700
Discharge Orders:
Discharge Patient (As Directed); Ordered 04/05/24
Ordered By: Francis Chung
Discharge Date and Time
Discharge Date/Time: 04/05/24 19:13
Print Language: DIVEHI
--- NOTE | 2024-04-05 14:46 | W.PN.ID1 ---
Date of Service
Date of Service: April 05, 2024
Today's Communication
Sign off.
Assessment / Plan
Low back pain
Abnormal MRI, with concern for discitis
Mildly elevated inflammatory markers (ESR, CRP)
CKD; stable
HTN
Hypothyroidism
Hx DVT/PE
Prediabetes
Lymphedema
Recommendations:
Given history, and the findings on radiology, discitis is less likely. Conversation between hospitalist and outpatient physician noted, and findings on imaging felt to be a fracture of an anterior osteophyte. Aspiration currently on hold. Patient
to be followed clinically.
Little more to offer from a Infectious Diseases standpoint at this time.
Will sign off for now. Please call with any questions.
����������������������������������������������������������
Chief Complaint
-: Other (Back discomfort; ?discitis)
Subjective / Review of Systems
Review of Systems: No Fever and No Chills
Vital Signs / Physical Exam
Vital Signs
Vital Signs
Temp Pulse Resp BP Pulse Ox
97.3 F 59 16 139/69 98
04/05/24 11:02 04/05/24 11:02 04/05/24 11:02 04/05/24 11:02 04/05/24 11:02
Physical Exam
Constitutional: No Acute Distress and Comfortable
Eyes: No Conjunctival Hemorrhage
Cardiovascular: S1/S2; Negative S3/S4
Pulmonary: Coarse
Gastrointestinal: Soft and Non Tender
Extremities: Edema; Negative Cyanosis or Erythema
Neurological: Awake and Alert
Psychological: Calm
Objective Data
Lab Data
Lab Results
03/29/24 06:27
04/01/24 06:57
ESR 48 mm/hour (0-20) H 03/31/24 06:54
Estimated Creat Clear 35 ml/min 04/01/24 06:57
Lactic Acid 0.8 mmol/L (0.7-2.0) 03/27/24 20:02
Total Bilirubin 0.2 mg/dl (0.2-1.3) 03/28/24 04:06
AST 39 U/L (14-36) H 03/28/24 04:06
ALT 22 U/L (0-35) 03/28/24 04:06
Alkaline Phosphatase 56 U/L (38-126) 03/28/24 04:06
C-Reactive Protein 15.70 mg/L (0.0-10.00) H 03/31/24 06:54
Most recent labs reviewed.
Micro Results:
03/27/24 20:02 Blood Culture - Final
Blood/Venous No Growth - Final Report
03/27/24 20:02 Blood Culture - Final
Blood/Venous No Growth - Final Report
Imaging:
03/29/2024 Plain film lumbar spine: Vertebral body heights are maintained with no evidence for compression fracture. No radiographic evidence to suggest discitis. Degenerative changes of the lumbar spine as described.
03/29/2024 MRI cervical spine: There is severe spinal cord compression and severe central canal stenosis at the C5/C6 secondary to large central disc herniation. There is moderate edema or myelomalacia in the cervical spinal cord at the C5/C6
level. There is also a moderate-sized right central disc herniation at C3/C4 causing moderate spinal cord compression. Please see full dictation for additional detail.
03/29/2024 MRI lumbar spine without contrast: A small amount of fluid signal intensity in the anterior aspect of the T12/L1 intervertebral disc, with mild adjacent acute endplate bone marrow edema and mild adjacent soft tissue edema. Diagnostic
possibilities include anterior disc herniation, or less likely an acute infectious discitis. Abnormalities were also seen at the L5/S1 intervertebral disc area with the same diagnostic possibilities.
[2024-04-05 15:53] VITALS: BP 156/63
== END 2024-04-05 19:13 | DRG 551 ==
LOC: 3 WEST ACU 22:59
PROVIDERS: Internal Medicine; Specialist; ADMITTING PHYSICIAN Internal Medicine; ATTENDING PHYSICIAN Hospitalist; CONSULT PHYSICIAN Internal Medicine Infectious Disease; CONSULT PHYSICIAN Neurological Surgery; CONSULT PHYSICIAN Psychiatry & Neurology Neurology; CONSULT PHYSICIAN Specialist; EMERGENCY PHYSICIAN Emergency Medicine
DX: M47.26 Other spondylosis with radiculopathy, lumbar region (principal); G92.8 Other toxic encephalopathy; G92.9 Unspecified toxic encephalopathy; E87.0 Hyperosmolality and hypernatremia; Z68.41 Body mass index [BMI] 40.0-44.9, adult; N17.9 Acute kidney failure, unspecified; I45.2 Bifascicular block; M48.02 Spinal stenosis, cervical region; E66.813 Obesity, class 3; N18.32 Chronic kidney disease, stage 3b; E83.52 Hypercalcemia; G20.C Parkinsonism, unspecified; E21.1 Secondary hyperparathyroidism, not elsewhere classified; I12.9 Hypertensive chronic kidney disease with stage 1 through stage 4 chronic kidney disease, or unspecified chronic kidney disease; R68.0 Hypothermia, not associated with low environmental temperature; I48.0 Paroxysmal atrial fibrillation; Z66 Do not resuscitate; E03.9 Hypothyroidism, unspecified; Z79.01 Long term (current) use of anticoagulants; Z86.718 Personal history of other venous thrombosis and embolism
CPT/HCPCS: 70450; 71045; 72100; 72141; 72148; 80048; 80053; 81003; 82570; 82962; 83605; 83935; 83970; 84100; 84145; 84300; 84439; 84443; 84481; 85025; 85027; 85652; 86140; 87040; 93005; 96360; 96361; 97110; 97116; 97163; 97167; 97530; 97535; 99291

== ENCOUNTER → 2024-04-13 11:43 | Outpatient (REF) | payer OTHER, SELFPAY ==
[2024-04-13 13:14] LABS: % Basophils 0.7 % (0-2); % Eosinophils 3.8 % (0-6); % Immature Granulocytes 0.2 % (0-0.5); % Lymphocytes 45.6 % (20.5-51.1); % Monocytes 9.7 % (1.7-9.3); Absolute Eosinophils 0.2 10^3/uL (0-0.7); Absolute Lymphocytes 2.5 10^3/uL (1.2-3.4); Absolute Monocytes 0.5 10^3/uL (0.1-0.6); Absolute Neutrophils 2.2 10^3/uL (1.4-6.5); Hematocrit 31.4 % (37.0-47.0); Mean Corp Hgb Conc. 31.8 g/dL (33.0-37.0); Mean Corpuscular Volume 84.6 fL (81.0-99.0); Mean Platelet Volume 12.8 fL (7.4-10.4); Nucleated Red Blood Cells % 0 %; Platelet Count 276 10^3/uL (130-400); Red Blood Cell Count 3.71 10^6/uL (4.20-5.40); Red Cell Dist. Width 15.1 % (11.5-14.5); White Blood Cell Count 5.6 10^3/uL (4.8-10.8)
[2024-04-13 13:46] LABS: Blood Urea Nitrogen 82 mg/dl (7-17); Calcium 9.6 mg/dl (8.4-10.2); Carbon Dioxide 29 mmol/L (22-30); Chloride 102 mmol/L (98-107); Glucose 61 mg/dl (70-99); Potassium 4.7 mmol/L (3.5-5.1); Sodium 141 mmol/L (135-145); eGFR 27.78
== END ==
LOC: OLABP 11:43
PROVIDERS: ATTENDING PHYSICIAN Family Medicine
DX: M62.81 Muscle weakness (generalized) (principal); R26.2 Difficulty in walking, not elsewhere classified; M54.50 Low back pain, unspecified; N17.9 Acute kidney failure, unspecified; N18.30 Chronic kidney disease, stage 3 unspecified; I10 Essential (primary) hypertension
CPT/HCPCS: 36415; 80048; 85025

== ENCOUNTER → 2024-04-14 11:10 | Outpatient (REF) | payer OTHER, SELFPAY ==
[2024-04-14 12:17] LABS: Blood Urea Nitrogen 76 mg/dl (7-17); Calcium 9.6 mg/dl (8.4-10.2); Carbon Dioxide 30 mmol/L (22-30); Chloride 105 mmol/L (98-107); Glucose 81 mg/dl (70-99); Potassium 4.7 mmol/L (3.5-5.1); Sodium 142 mmol/L (135-145); eGFR 27.78
== END ==
LOC: OLABPG 11:10
PROVIDERS: ATTENDING PHYSICIAN Family Medicine
DX: G95.20 Unspecified cord compression (principal); M47.816 Spondylosis without myelopathy or radiculopathy, lumbar region; M62.81 Muscle weakness (generalized); N17.9 Acute kidney failure, unspecified; I89.0 Lymphedema, not elsewhere classified; I10 Essential (primary) hypertension; N18.30 Chronic kidney disease, stage 3 unspecified; G20.C Parkinsonism, unspecified
CPT/HCPCS: 36415; 80048

== ENCOUNTER 2025-03-28 17:26 | Inpatient (IN) | payer OTHER, SELFPAY ==
[2025-03-28] VITALS (7 sets, daily range): BP systolic 107–136; BP diastolic 48–70
[2025-03-28 15:01] LABS: Hematocrit 29.8 % (37.0-47.0); Hemoglobin 9.4 g/dL (12.0-16.0); Mean Corp Hgb Conc. 31.5 g/dL (33.0-37.0); Mean Corpuscular Volume 85.1 fL (81.0-99.0); Nucleated Red Blood Cells % 0 %; Platelet Count 154 10^3/uL (130-400); Red Cell Dist. Width 17.5 % (11.5-14.5)
[2025-03-28 15:04] LABS: Urine Character Clear (Clear)
[2025-03-28 15:10] LABS: Urine Red Blood Cell 0-2 /HPF (0-2)
[2025-03-28 15:21] LABS: COVID-19 Antigen Negative (Negative)
[2025-03-28 15:25] LABS: ALT (SGPT) < 10 U/L (0-35); AST (SGOT) 54 U/L (14-36); Albumin 3.7 g/dl (3.5-5.0); Alkaline Phosphatase 57 U/L (38-126); Blood Urea Nitrogen 59 mg/dl (7-17); Calcium 10.1 mg/dl (8.4-10.2); Carbon Dioxide 29 mmol/L (22-30); Chloride 106 mmol/L (98-107); Glucose 69 mg/dl (70-99); Potassium 4.8 mmol/L (3.5-5.1); Sodium 141 mmol/L (135-145); Total Protein 6.4 g/dl (6.3-8.2); eGFR 40.80
--- NOTE | 2025-03-28 16:14 | ED.GENMED ---
History of Present Illness
General
Chief Complaint: Swelling
Source: ambulance crew
Time Seen by Provider: 03/28/25 14:34
History of Present Illness
History of Present Illness:
84-year-old female presents to the emergency room for evaluation of decreased level of consciousness, peripheral edema. On arrival here patient denies any particular complaints but is noted to be hypothermic than initial triage vital signs.
Patient also noted to be particular bradycardic by paramedics. Evidently patient has similar episode a year ago. Patient denies any chest pain, shortness of breath, headache. Patient seems fairly oriented at the time of my evaluation.
Past History
Past History
ED Past Medical History: HTN, Hypothyroidism and Other (history of DVT and P/E in past, pre-diabetic, lymphedema)
Social History
Tobacco: Non-smoker
Alcohol: None
Drug: None
Personal:
Living: alone
Phy Exam
Physical Exam
Physical Exam:
General: Awake, Alert, Oriented X3. Appears stated age, chronically ill
Vitals: Hypothermic, bradycardic, normotensive
Head: Atraumatic
Eyes: Pupils equal, EOMI
Throat: Airway intact, no exudates
Neck: Trachea midline
Lungs: Clear and equal b/l
Heart: Regular rate, no murmurs
Abd: Soft, Nontender, No pulsatile mass
Neuro: Nonfocal
Skin: Warm, dry, no rash
Extremities: pulses equal b/l, 3+ edema
Scores
Heart Failure Risk
Heart Failure Risk Score: Not Applicable
Course
Orders/Labs/Results
Orders:
Orders
03/28/25 Breakfast
Sodium, 2 Gram
At Your Request: Limited Participation
03/28/25 14:27
Electrocardiogram (*1) Urgent
Reason for Study: Bradycardia / Tachycardia
EKG- Treatment ONCE
03/28/25 14:46
Warm [Thermal Regulation-Treatment] ONCE
Mode:: Automatic
Type of thermoregulation:: Heating
PATIENT'S Goal Temperature:: 96.8 F (36 C)
Comments/Additional Instructions:: Temperature and skin assessment per unit protocol
Complete Blood Count/With Diff Urgent
Comprehensive Metabolic Panel Urgent
Cortisol, Random Urgent
Comment: ADD ON
Lactic Acid Urgent
NT-proBNP Urgent
Urinalysis Reflex To Culture Urgent
Date Specimen was Collected: 03/28/25
Time Specimen was Collected: 14:45
Urine Microscopic Reflex Cult Urgent
Blood Culture Urgent
SKIP Source: Blood/Venous
Specimen Description:
Date Specimen was Collected: 03/28/25
Time Specimen was Collected: 14:45
03/28/25 14:48
CR Chest Portable - 1 View Urgent
Comment:
Reason For Exam: weakness, hypothermia
Reason Study Needs to be Portable: Unable to Transport
03/28/25 14:52
COVID-19 Antigen Urgent
Source: Nasal Swab
Blood Culture Urgent
SKIP Source: Blood/Venous
Specimen Description:
Influenza A+B Rapid Molecular Urgent
SKIP Source: Nasal Swab
Specimen Description:
03/28/25 17:00
Dextrose 5%/0.9%Sodchl 1000 ml [D5/0.9% Sodium Chloride] 1,000 ml IV 150 mls/hr
03/28/25 17:06
Admit/Transfer Patient As Directed
Co-Sign Provider:
Level of Care: Inpatient admission
Assign to:: Telemetry
Physician / Group: Htay
Diagnosis: Volume Overload, Hypothermia
Reason for Telemetry: Arrhythmia
Date to Stop Telemetry: 03/31/25
Time to Stop Telemetry: 11:00
Reason for Hospitalization: IV diuretics
Expected length of stay greater than two midnights?: Yes
ELOS- Estimated Length of Stay in days: 3
I certify the patient meets the requirements for IP care: Yes
PRN Pain Medication Management As Directed
May give lesser potent ordered pain med per pt: Yes
preference::
Protocol:: Medication orders for pain may be administered in a
manner that supports deferring to patient preference
when the pt is:
- Requesting an ordered lesser potent pain medication.
Least to most potent pain medications are defined
as: acetaminophen < NSAID < tramadol < opioids
(morphine, oxycodone, hydromorphone).
- Requesting a lesser dose of the same medication IF
ORDERED.
- Requesting a less intrusive route of administration
if both routes are prescribed by the provider (PO <
IV).
03/28/25 17:08
Code Status As Directed
Resuscitation Status: Do not resuscitate
Reached after discussion with pt or family/Healthcare POA: Yes
DNR Bracelet Application ONCE
03/28/25 17:14
Furosemide [Lasix] 40 mg IV NOW STA
03/28/25 18:37
Acetaminophen [Tylenol] 650 mg PO Q4HPRN PRN
Dextrose 50%-Water [Dextrose 50% Syringe] 12.5 grams IV A96HFTM PRN
Glucagon [GlucaGen] 1 mg IM PRN PRN
03/28/25 18:37
WOUND/OSTOMY CONSULT Routine
Reason for Consult: left breast wound; sacral wound
Activity As Directed
Activity Level: Bedrest
Bedside Glucose Monitoring As Directed
Frequency: AC&HS
Additional Instructions:: Change to q6h if pt on TPN, tube feeding or not eating
Bedside Glucose Monitoring As Directed
Frequency: AC&HS
I&O [Intake/ Output] As Directed
Frequency: q12h
Vital Signs As Directed
Frequency: Per unit guidelines
Warming [place] [Heating/Cooling [place]] As Directed
Mode:: Automatic
Type of thermoregulation:: Heating
PATIENT'S Goal Temperature:: 96.8 F (36 C)
Comments/Additional Instructions:: Temperature and skin assessment per unit protocol
Weight As Directed
Frequency: Daily
03/28/25 19:00
Atorvastatin [Lipitor] 10 mg PO QPM
03/28/25 20:00
Apixaban [Eliquis] 2.5 mg PO BID
HydrALAZINE [Apresoline] 25 mg PO BID
NIFEdipine EXTENDED RELEASE [Procardia Xl (Extended Release)] 30 mg PO BID
03/28/25 22:00
Carbidopa/Levodopa [Sinemet 25-100] 1 tablet PO TID
Clonazepam [Klonopin] 1 mg PO HS
03/29/25 06:00
Basic Metabolic Panel IN AM
Complete Blood Count/No Diff IN AM
Cortisol, Random IN AM
Glycohemoglobin (HgbA1c) IN AM
TSH Reflex To Free T4 IN AM
Levothyroxine [Synthroid] 75 mcg PO DAILY @ 0600
03/29/25 08:00
Fenofibrate [Tricor] 48 mg PO DAILY
Furosemide [Lasix] 40 mg IV BID AT 0800,1600
03/31/25 11:00
DC Protocol for Telemetry ONCE
Abnormal Lab Results
03/28/25 03/28/25
14:46 16:50
WBC 4.7 L 10^3/uL
(4.8-10.8)
RBC 3.50 L 10^6/uL
(4.20-5.40)
Hgb 9.4 L g/dL
(12.0-16.0)
Hct 29.8 L %
(37.0-47.0)
MCH 26.9 L pg
(27.0-31.0)
MCHC 31.5 L g/dL
(33.0-37.0)
RDW 17.5 H %
(11.5-14.5)
MPV 12.0 H fL
(7.4-10.4)
Monocytes % 12.4 H %
(1.7-9.3)
BUN 59 H mg/dl
(7-17)
Creatinine 1.3 H mg/dL
(0.6-1.0)
Glucose 69 L mg/dl
(70-99)
Lactic Acid < 0.5 L mmol/L
(0.7-2.0)
AST 54 H U/L
(14-36)
Urine Bacteria (Reflex) Few A
(Negative)
Urine Albumin (Reflex) 1+ A
(Neg - Trace)
POC Glucose 108 H mg/dl
(70-99)
03/28/25 14:46
03/28/25 14:46
Vital Signs
Initial and Last Documented VS:
Initial Vital Signs
Temp Pulse Resp BP Pulse Ox
90.6 F L 48 16 125/55 97
03/28/25 14:29 03/28/25 14:29 03/28/25 14:29 03/28/25 14:29 03/28/25 14:29
Last Documented Vital Signs
Temp Pulse Resp BP Pulse Ox
93 F L 60 17 136/60 99
03/28/25 18:55 03/28/25 18:55 03/28/25 18:55 03/28/25 18:55 03/28/25 18:55
MDM/Problems Addressed
Differential Diagnosis Includes:
Adrenal insufficiency, sepsis, SIRS reaction to vaccine, electrolyte abnormality
MDM/Problems Addressed:
Patient presents with hypothermia and decreased activity. She is warming up with the use of a [place] hugger. Labs show normal WBC renal function which basically at her baseline. She is mildly hyperglycemic. Remainder labs are okay. Chest x-ray
shows no acute abnormality. Patient will require hospitalization for supportive care, rewarming, monitoring pending culture report
*Radiology
Radiology exam reviewed: preliminary read by ED provider (No acute disease to my review of patient's chest x-ray)
*Pulse Oximetry
SaO2: 93
Oxygen Mode of Delivery: Room air
Patient hypoxic: no
*EKG
Interpretation: abnormal
Heart Rate: 52
Rate: bradycardiac
Rhythm: sinus
QRS Pattern: right bundle branch block
Ischemia: non-specific ST changes
*Sample Supervisor Interpretation
Rate: bradycardiac
Interpretation: abnormal
Rhythm: sinus
*Critical Care Note
Total Time (30-74mins, 75-104mins- exclusive of procedures): 33 min
comment:
Critical care statement: A total of 33 minutes of critical care time was provided for this patient. This includes management of unstable vital signs, evaluation of the patient at bedside, reviewing the patient�s pertinent medical records, discussion
with consultants, review of old EKGs and review of pertinent medical records. This time with separate from time utilized to perform the aforementioned documented procedures
ED Attending Note
-
Portions of this chart may have been created with voice recognition software.� Occasional wrong word or��sound alike� substitutions may have occurred due to the inherent limitations of voice recognition software.
Discharge Plan
Departure
Patient Disposition: Admit
Date of Disposition: 03/28/25
Time of Disposition: 16:14
Admit to: IMU
Presentation/result/management discussed w/ accepting MD/DO: Hospitalist
Condition: Serious
Discharge Problem:
Hypothermia, Hypoglycemia
Interventions
Interventions:
*Risk Screen - Suicide Last Done: 03/28/25 14:25
*General Assessment Last Done: 03/28/25 14:26
*Neglect/Abuse Screening Last Done: 03/28/25 14:25
*ED- Fall Risk Assessment Last Done: 03/28/25 14:26
*ED COVID-19 Vaccine History Last Done: 03/28/25 14:26
*ED Influenza Vaccine History Last Done: 03/28/25 14:26
*Nursing Disposition Last Done: 03/28/25 18:20
ED- Cardiac Assessment Last Done: 03/28/25 14:27
ED- Pulmonary Assessment Last Done: 03/28/25 14:27
ED-Skin Assessment Last Done: 03/28/25 15:06
Discharge Date and Time
Discharge Date/Time: 03/28/25 18:34
--- NOTE | 2025-03-28 16:16 | HPS.HSE ---
Family Physician
-
Family Physician: Owen Lomeli
Chief Complaint
-
Confusion
History of Present Illness
Patient is an 84 y/o female past medical history of hypertension, hyperlipidemia, chronic lower extremity lymphedema, CKD stage IIIB, parkinsonism and thromboembolic disease who presents with confusion. Additional history obtained from patient's
daughter at the bedside. Patient was noted by her daughter to be more lethargic and weak over the past few days, but notable worse today. Daughter has noted patient's legs have become more edematous over the past week with some noted blisters.
Patient is also scheduled to complete a coarse of antibiotics for a small wound under her left breast. Upon arrival to the emergency department patient was found to be hypothermic and placed on warming blanket.
Medical History
Past Medical History
Past Medical History: Reports Other
Additional Past Medical History:
Parkinsonism
Essential Hypertension
Hyperlipidemia
Chronic Lower Extremity Lymphedema
CKD Stage IIIB
Hypothyroidism
Thormboembolic Disease
Past Surgical History: Reports Other
Additional Past Surgical History:
Hysterectomy
Cholecystectomy
Social History
Tobacco: Non-smoker
Alcohol: None
Drug: None
Living: Assisted Living ([facility])
Family History
Family History: Not pertinent
Allergies / Home Medications
Allergies reflects when Allergies were last updated in [facility].
Home Medications with original date entered in [facility]
Allergy/Medication List:
Allergies
Allergy/AdvReac Type Severity Reaction Status Date / Time
codeine Allergy Nausea Verified 08/13/23 15:43
erythromycin base Allergy Unknown Verified 03/27/24 18:34
ondansetron Allergy Unknown Verified 08/13/23 15:43
Penicillins Allergy Unknown Verified 08/13/23 15:43
prochlorperazine (From Allergy Unknown Verified 08/13/23 15:43
Compazine)
sertraline Allergy Nausea Verified 08/13/23 15:43
Home Medications
apixaban 2.5 mg tablet (Eliquis) 2.5 mg PO BID Blood Clot Prevention/Tx 03/03/23
carboxymethylcellulose sodium 0.5 % eye drops in a dropperette 1 drp BOTH EYES HS dry eyes ##0 03/03/23
cholecalciferol (vitamin D3) 125 mcg (5,000 unit) tablet (Vitamin D3) 125 mcg PO TH Supplement 03/03/23
clonazepam 1 mg tablet 1 mg PO HS Mental Health/Anxiety 03/03/23
fenofibrate 160 mg tablet 160 mg PO DAILY High Cholesterol 03/03/23
hydralazine 25 mg tablet 25 mg PO BID Blood Pressure 03/03/23
polyethylene glycol 3350 17 gram oral powder packet (Miralax) 8.5 g PO DAILY Constipation 03/03/23
nifedipine 30 mg tablet,extended release 30 mg PO BID #60 tabs 03/06/23
furosemide 20 mg tablet (Lasix) 20 mg PO DAILY Fluid Retention/Swelling 07/08/23
lovastatin 10 mg tablet 10 mg PO QPM High Cholesterol 07/08/23
therapeutic multivitamin 1 tab PO DAILY Supplement 07/08/23
carbidopa 25 mg-levodopa 100 mg tablet 1 tab PO TID 30 days #0 tabs 04/05/24
doxycycline hyclate 100 mg capsule 100 mg PO BID 03/28/25
levothyroxine 50 mcg tablet 75 mcg PO DAILY 03/28/25
tramadol 50 mg tablet 25 mg PO Q8HPRN PRN moderate pain 03/28/25
zinc oxide 12 % topical cream ([place] Protect (zinc oxide)) 1 applic topical BID buttock 03/28/25
Review of Systems
-
A 12 point ROS was completed and negative except as noted: Yes
Constitutional: Reports Other (Hypothermia)
Respiratory: Denies Cough or Trouble Breathing
Cardiac: Denies Chest Pain or Palpitations
Abdomen/GI: Denies Nausea, Vomiting or Diarrhea
: Denies Dysuria or Frequency
Physical Exam
Vital Signs
Vital Signs
Temp Pulse Resp BP Pulse Ox
91.2 F L 41 9 111/48 93
03/28/25 16:03 03/28/25 16:00 03/28/25 16:00 03/28/25 16:00 03/28/25 16:14
Physical Exam
General: Comfortable, Conversant (Speech is slow) and Other (Warming blanket in place)
HEENT: Anicteric and Moist mucous membranes
Respiratory: Clear (Anteriorly) and Non Labored Respirations
Cardiac: S1/S2, Regular Rhythm, Bradycardia and Murmur (3/6 Systolic Murmur)
Breast: Other (Dime sized wound located under left breast without small amount of surrounding erythema, no purulent drainage noted; Compared to pictures taken by daughter last week area is improving)
GI: Soft and Non Tender
Genito-urinary: Other (Temp-sensing catheter in place draining pale yellow urine)
Musculoskeletal: No Clubbing, No Cyanosis and Other (Bilateral lower extremities wrapped in MYRNA with significant edema )
Skin: Warm and Dry
Neuro: Awake, Alert and Nonfocal/grossly intact
Psych: Calm
Laboratory Results
-
03/28/25 14:46
03/28/25 14:46
Laboratory Results
Lactic Acid < 0.5 mmol/L (0.7-2.0) L 03/28/25 14:46
Total Bilirubin 0.5 mg/dl (0.2-1.3) 03/28/25 14:46
AST 54 U/L (14-36) H 03/28/25 14:46
ALT < 10 U/L (0-35) 03/28/25 14:46
Alkaline Phosphatase 57 U/L (38-126) 03/28/25 14:46
Data Reviewed
-
Diagnostic Radiology: Report Reviewed by me
Lab Data: Labs Reviewed by me
Old Records: Reviewed
Impression/Plan
-
Acute Volume Overload, patient with worsening lower extremity lymphedema with concern for new heart failure
-Prior notes indicate aortic stenosis, and exam does reveal murmur consistent with aortic stenosis
-Check Echocardiogram
-Continue Lasix 40mg IV BID
-Monitor Daily Weights
-Consider cardiology consult
Hypothermia, unclear etiology
-Patient does not appear to have acute infection
-Check TSH and Random Cortisol
-Await urine culture
-Continue warming blanket - temp-sensing catheter placed in emergency department
Bradycardia, likely related to hypothermia
-Monitor on Telemetry
Hypoglycemia
-Family reports poor oral intake
-Monitor bedside glucose
-Given IVFs with dextrose in ED - Stop fluids once glucose level stabilizes
Parkinsonism
-Continue carbidopa/levodopa
Essential Hypertension
-Continue hydralazine, nifedipine with hold parameters
Hyperlipidemia
-Continue fenofibrate and statin
CKD Stage IIIB
-Creatinine actual lower than baseline
-Monitor renal function while on diuretics
Hypothyroidism
-Continue levothyroxine
Anxiety
-Continue clonazepam
Hx Thromboembolic Disease
-Continue Eliquis
Code Status: DNR
[2025-03-28] MEDS: D5/0.9% SODIUM CHLORIDE 1000 IV (16:17)
--- NOTE | 2025-03-28 16:24 | W.PN.UPDATE ---
Update Note
Progress Note Update
I could not get any information from the patient as�
Information gathered by chart review and speaking with the ER staff.
This note serves as an addendum to the H&P by electrical tester battery Parker GRANT
HPI
83F HX HX multiple comorbidities, HX hypothermia, back pain and TME , CKD seen at ER:
- pw lethargy, lower extremity swelling and confusion.
- hypothermic (90f)
- mild hypoglycemia.
- similar episode a year ago shortly after receiving a flu vaccine.
- She just got the flu vaccine
Relevant VS
03/28/25
14:29 03/28/25
15:03
Temp 90.6 F L 90.6 F L
Temp route: Rectal Rectal
Pulse 48
Resp Rate 16
Blood pressure 125/55
SaO2 97
Oxygen Mode of Delivery Room air
PE
General: No Apparent Distress
HEENT: Moist Mucous Membranes
Respiratory: Clear to Auscultation; Negative Wheezes, Rales or Rhonchi
Cardiac: Bradycardia
Abdo: Soft, Nontender and Nondistended
MS: b/l Zelda edema , wearing compression stocking
Neuro: Awake, Alert and Oriented
Psych: Calm
Relevant data�
04/13/24 03/28/25
04:40 14:46
WBC 5.6 4.7 L
Hgb 10.0 L 9.4 L
Plt Count 276 154
04/14/24 03/28/25
06:00 14:46
Sodium 141
Potassium 4.8
BUN 76 H 59 H
Creatinine 1.8 H 1.3 H
eGFR 27.78 40.80
Glucose 69 L
Lactic Acid < 0.5 L
Calcium 10.1
AST 54 H
ALT < 10
Gqg-X-Apyuyyblkyy Pept 2230
03/28/25
14:46
Urine Nitrite (Reflex) Negative
Urine RBC 0-2
Urine WBC (Reflex) 3-5
Ur Squamous Epith Cells 11-15
Urine Bacteria (Reflex) Few A
NEG Covid
BCx x 2 sent
EKG
SINUS BRADYCARDIA WITH SINUS ARRHYTHMIA WITH 1ST DEGREE A-V BLOCK
LEFT AXIS DEVIATION
RIGHT BUNDLE BRANCH BLOCK
ABNORMAL ECG
WHEN COMPARED WITH ECG OF 27-Mar-2024 22:54,
NO SIGNIFICANT CHANGE WAS FOUND
Confirmed by ALENA DIAMOND MD ([id number]) on 03/28/2025 3:29:40 PM
CXR:
No acute cardiopulmonary abnormality.
Chronic blunting of left costophrenic angle.
Last hospitalist admission: 03/27/24 -04/05/24
Discharge Diagnosis/Procedures:
Hypothermia. Back pain.
Bilateral lower extremity weakness.
Toxic metabolic encephalopathy.
Acute kidney injury on chronic kidney disease stage IIIb.
Parkinsonism.
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
ASSESSMENT & PLAN
Acute onset of Lethargy, significantly hypothermic, mild hypoglycemia
DDX: sepsis vs. endo-metabolic ecology like adrenal insufficiency , hypothyroidism vs. Occult ADES to flu shot vs new CHF
- Nl WCC. NEG LA. NEG UA. NEG CXR. NEG COVID
- 2 BCx sent
- check Cortisol random and in AM
- check TSH
- Hold off on empiric IV AB
- supportive care
- observe on TLM
Sinusbradycardia
- Pending TSH
- TLM monitor
Concern for New CHF - No prior ECHO
Chr Zelda lymphedema with small fluid filled blisters
Chr Hypervolemia with Zelda edema
HC CKD4 ( baseline Cr 1.8, baseline eGFR hi 20s)
- Cr is decreased and eGFR increased suspect acute vol expansion
- Elevated pro BNP
- worsened over last week
- ECHO
- To consider Card consult if abn ECHO
Lethargy is likely TME - more awake at ER
- fall precaution
Hypothyroidism
- pending TSH
- c/w current LT4
Hx DVT/PE
- on Chr Eliquis
Hyperlipidemia:
Continue home statins
Parkinson dz
DVT Px:Chr eliquis
DNR per DNR
IP TLM
[2025-03-28 16:51] LABS: Glucose - Point of Care 108 mg/dl (70-99)
[2025-03-28] MEDS: LASIX 40 MG IV (17:37)
[2025-03-28 17:55] LABS: Cortisol, Random 19.1 ug/dl
--- NOTE | 2025-03-28 18:29 | EDCM ---
CM reviewed chart and met with pt bedside in ED. Lives [place] at [facility] since April 2024.
Needs assistance with ADLs, personal care and ambulation at baseline. Uses RW, also has WC, shower chair
Confirms prescription coverage.
HX [facility]
PCP: Owen Lomeli
Pharmacy: [facility] [place]
Anticipate discharge back to [facility], CM will continue to follow for any discharge planning needs.
[2025-03-28] MEDS: LIPITOR 10 MG PO (20:23)
[2025-03-28] MEDS: PROCARDIA XL (EXTENDED RELEASE) 30 MG PO (20:33)
[2025-03-28] MEDS: ELIQUIS 2.5 MG PO (20:33)
[2025-03-28] MEDS: APRESOLINE 25 MG PO (20:35)
[2025-03-28 21:58] LABS: Glucose - Point of Care 94 mg/dl (70-99)
[2025-03-28] MEDS: KLONOPIN 1 MG PO (22:27)
[2025-03-28] MEDS: SINEMET 25-100 1 TABLET PO (22:27)
[2025-03-28] MEDS: TYLENOL 650 MG PO (22:42)
[2025-03-29] VITALS (9 sets, daily range): BP systolic 91–141; BP diastolic 44–84; PULSE 71; O2SAT 86; BMI 38.6; BMI 40.5
[2025-03-29] MEDS: SYNTHROID 75 MCG PO (05:26)
[2025-03-29 07:07] LABS: Hematocrit 27.1 % (37.0-47.0); Hemoglobin 8.5 g/dL (12.0-16.0); Mean Corp Hgb Conc. 31.4 g/dL (33.0-37.0); Mean Corpuscular Volume 88.0 fL (81.0-99.0); Platelet Count 148 10^3/uL (130-400); Red Cell Dist. Width 17.5 % (11.5-14.5)
[2025-03-29 07:15] LABS: Blood Urea Nitrogen 59 mg/dl (7-17); Calcium 9.5 mg/dl (8.4-10.2); Carbon Dioxide 32 mmol/L (22-30); Chloride 107 mmol/L (98-107); Estimated Creatinine Clearance 36 ml/min; Glucose 60 mg/dl (70-99); Potassium 4.3 mmol/L (3.5-5.1); Sodium 143 mmol/L (135-145); eGFR 37.33
[2025-03-29 07:55] LABS: Glucose - Point of Care 66 mg/dl (70-99)
[2025-03-29 07:58] LABS: Cortisol, Random 12.7 ug/dl
[2025-03-29 08:14] LABS: Glucose - Point of Care 81 mg/dl (70-99)
[2025-03-29] MEDS: SINEMET 25-100 1 TABLET PO ×3 (09:00→21:06)
[2025-03-29] MEDS: ELIQUIS 2.5 MG PO ×2 (09:00→20:51)
[2025-03-29] MEDS: TRICOR 48 MG PO (09:00)
[2025-03-29] MEDS: PROCARDIA XL (EXTENDED RELEASE) 30 MG PO (09:00)
[2025-03-29] MEDS: APRESOLINE 25 MG PO (09:00)
[2025-03-29] MEDS: LASIX 40 MG IV ×2 (09:01→21:53)
[2025-03-29 09:05] LABS: Glycohemoglobin (HgbA1c) 5.0 % (4.0-5.6)
[2025-03-29] MEDS: DESENEX/MITRAZOL/ZEASORB 1 APPLIC TOPICAL ×2 (09:14→21:01)
[2025-03-29] MEDS: TYLENOL 650 MG PO (09:29)
--- NOTE | 2025-03-29 09:55 | W.PN.HOSP.TC ---
Today's Communication/Plan
-
Echo of heart
IV Lasix
Wound care consult
Assessment / Plan
Assessment / Plan
Physical Exam
General: Comfortable, Conversant (Speech is slow)
HEENT: Anicteric and Moist mucous membranes
Respiratory: Clear (Anteriorly) and Non Labored Respirations
Cardiac: S1/S2, Regular Rhythm, Bradycardia and Murmur (3/6 Systolic Murmur)
Breast: Other (Dime sized wound located under left breast without small amount of surrounding erythema, no purulent drainage noted; Compared to pictures taken by daughter last week area is improving)
GI: Soft and Non Tender
Genito-urinary:+ Cisse, no hematuria
Musculoskeletal: No Clubbing, No Cyanosis and Other (Bilateral lower extremities wrapped in MYRNA with significant edema/ erythema)
Skin: stage II buttock pressure ulcer POA
Neuro: Awake, Alert and Nonfocal/grossly intact
Psych: Calm
Acute Volume Overload, patient with worsening acute on chronic lower extremity lymphedema
-Prior notes indicate aortic stenosis, and exam does reveal murmur consistent with aortic stenosis
-Check Echocardiogram
-Continue Lasix 40mg IV BID. Weight unchanged from last year
-Monitor Daily Weights
Hypothermia, unclear etiology
-Patient does not appear to have acute infection
-Check TSH and Random Cortisol
-Await urine culture
-Continue warming blanket - temp-sensing catheter placed in emergency department
#stage II buttock pressure ulcer POA
Consulted wound care
Bradycardia, likely related to hypothermia
-Monitor on Telemetry
Hypoglycemia
-Family reports poor oral intake
-Monitor bedside glucose
-Given IVFs with dextrose in ED - Stop fluids once glucose level stabilizes
Parkinsonism
-Continue carbidopa/levodopa
Essential Hypertension
-Continue hydralazine, nifedipine with hold parameters
Hyperlipidemia
-Continue fenofibrate and statin
Acute on CKD Stage IIIB/ IV
-Monitor renal function while on diuretics
Hypothyroidism
-Continue levothyroxine
Anxiety
-Continue clonazepam
Hx Thromboembolic Disease
-Continue Eliquis
Code Status: DNR
Total time spent to see the patient, examine the patient, review data and lab result, discuss treatment plan with patient, nursing staff around 55 minutes
Anticipated Discharge: > 48 hours
Subjective/Interval History
-
Date of Service: March 29, 2025
No chest pain
No sob
She reported soreness in her buttock ulcer area
Objective Data
-
Labs:
Laboratory Results
03/29/25
06:28
WBC 4.1 L
Hgb 8.5 L
Hct 27.1 L
Plt Count 148
Sodium 143
Potassium 4.3
Chloride 107
Carbon Dioxide 32 H
BUN 59 H
Creatinine 1.4 H
Glucose 60 L
Calcium 9.5
Vital Signs:
Vital Signs
Temp Pulse Resp BP Pulse Ox
97.4 F 61 22 123/47 94
03/29/25 07:42 03/29/25 07:42 03/29/25 07:42 03/29/25 07:42 03/29/25 07:42
I&O
03/28/25 03/29/25 03/30/25
06:59 06:59 06:59
Output Total 1500 / 1500
Balance -1500 / -1500
[2025-03-29 10:30] LABS: Glucose - Point of Care 76 mg/dl (70-99)
--- NOTE | 2025-03-29 10:31 | PTCARENOTE ---
Pt came up to the floor with schilling placed in ED. No ordered place or indication for use. Discussed with MD, Schilling discontinued this AM. Schilling removed at this time. Will continue with plan of care.
[2025-03-29 12:17] LABS: Glucose - Point of Care 77 mg/dl (70-99)
--- NOTE | 2025-03-29 12:27 | WOUNDNOTE ---
SACRUM AND R BUTTOCK
--- NOTE | 2025-03-29 12:28 | WOUNDNOTE ---
L MEDIAL LOWER LEGS
--- NOTE | 2025-03-29 12:30 | WOUNDNOTE ---
WON RN note: Patient admitted with hypothermia and hypoglycemia.
See H&P for complete history.
PMH: a fib (Eliquis), DVT, obesity, HTN, lymphedema legs, CKD, obesity and falls.
Wound Location and type/assessment: Patient known to service, last seen 07/08/23. Admitted with: Leg lymphedema that is chronic, small L leg medial old dry blister, same as last admission. Skin warm and dry, + pedal pulses, heels intact. Patient
turned to side with 2 assist, sacrum is blanchable red, MASD, incontinent of urine. Patient is on bedrest. Same small stage 2 PI on R buttock, now slightly bigger and weeping. MASD in groin skin folds. Old L breast blister now with dried scab from
MASD.
Appetite: good.
Pressure redistribution devices in place: Centrella air bed in use, Pillow under calves. Air chair cushion when sitting.
Plan: With assist of PCT compression wraps knee high applied to both legs. Applied dry gauze to medial L leg blister under berlin wrap. Will order fungal powder for skin folds, sacrum and buttocks, applied silicone foam to R buttock. Recommend Purwick
if patient remains incontinent and immobile.
[2025-03-29] MEDS: ULTRAM 25 MG PO (14:24)
[2025-03-29] MEDS: LASIX IV (16:31)
[2025-03-29] MEDS: TYLENOL 1000 MG PO ×2 (16:57→21:06)
[2025-03-29] MEDS: LIPITOR 10 MG PO (16:57)
--- NOTE | 2025-03-29 17:10 | CON.NEURO4 ---
Consultation - Neurology 4
-
CONSULTING PHYSICIAN: Vincent Odonnell MD
REFERRING PHYSICIAN: Fatou Tripathi MD
DICTATED BY: Vincent Odonnell MD
DATE/TIME OF REQUEST: 03/29/2025
DATE/TIME OF CONSULTATION: 03/29/2025
Reason for Consultation: Confusion
Assessment and Plan:
The patient is an 84 years old female with a past medical history of hypertension, hyperlipidemia, chronic lower extremity lymphedema, CKD stage IIIB and parkinsonism who presents with confusion. The patient's mental status has improved since she
has been in the hospital as reported by the patient's nurse.
The plan is to continue current medications including Sinemet and levothyroxine, along with Eliquis for thromboembolic disease.
The patient had an MRI done on 03/29/2024, that showed severe spinal cord compression and severe central canal stenosis at C5/C6 level secondary to a large central disc herniation. Recommend a MRI of the cervical spine to follow-up on the MRI which
was done on 03/29/2024.
History of Present Illness:
The patient is an 84 years old female with a past medical history of hypertension, hyperlipidemia, chronic lower extremity lymphedema, CKD stage IIIB and parkinsonism who presents with confusion. Additional history obtained from patient's daughter
at the bedside. Patient was noted by her daughter to be more lethargic and weak over the past few days, but notable worse yesterday. Daughter has noted patient's legs have become more edematous over the past week with some noted blisters. Patient
is also scheduled to complete a coarse of antibiotics for a small wound under her left breast. Upon arrival to the emergency department patient was found to be hypothermic and placed on warming blanket. The patient's mental status has improved
since she has been in the hospital, as reported by the patient's nurse.
Past Medical History: Hypertension, hyperlipidemia, chronic lower extremity lymphedema, CKD stage IIIB and parkinsonism
Review of Symptoms:
Patient denies any fever, headache, chest pain, shortness of breath, GI or symptoms.
�Per the HPI.�All systems are reviewed negative except above.
�- Remove any of these problems that patient may have complained about in the HPI.
�- If patient is unresponsive, intubated or demented, say 'Per the HPI. I am unable to obtain a complete review of systems�because of patient's inability to provide history.'
by nasal cannula / ventilator).
Neurologic Examination:
The patient is awake, alert and oriented x 3.
She is able to follow commands and answer questions appropriately.
There is no aphasia or dysarthria.
The cranial nerves II to XII are grossly intact.
The motor strength is grossly 5/5 bilaterally in the upper extremities and grossly 3/5 bilaterally in the lower extremities.
The sensations are grossly intact bilaterally.
There was no limb ataxia seen.
Medications
-
Active Medications
Generic Name Dose Route Start Last Admin
Trade Name Freq PRN Reason Stop Dose Admin
Acetaminophen 1,000 mg 03/29/25 16:00 03/29/25 16:57
Acetaminophen 500 Mg Tablet PO 04/26/25 15:59 1,000 mg
TID HATTIE Administration
Apixaban 2.5 mg 03/28/25 20:00 03/29/25 09:00
Apixaban (Eliquis) 2.5 Mg Tablet PO 04/25/25 19:59 2.5 mg
BID HATTIE Administration
Atorvastatin Calcium 10 mg 03/28/25 19:00 03/29/25 16:57
Atorvastatin (Lipitor) 10 Mg Tablet PO 04/25/25 18:59 10 mg
QPM HATTIE Administration
Carbidopa/Levodopa 1 tablet 03/28/25 22:00 03/29/25 16:57
Carbidopa (25 Mg)/Levodopa (100 Mg) Regular Release Tablet PO 04/25/25 21:59 1 tablet
TID HATTIE Administration
Clonazepam 1 mg 03/28/25 22:00 03/28/25 22:27
Clonazepam 1 Mg Tablet PO 04/25/25 21:59 1 mg
HS HATTIE Administration
Dextrose 12.5 grams 03/28/25 18:37
Dextrose 50% (0.5 Grams/Ml) 50 Ml Syringe IV 04/25/25 18:36
[id number] PRN
hypoglycemia
Protocol
Fenofibrate 48 mg 03/29/25 08:00 03/29/25 09:00
Fenofibrate 48 Mg Tablet PO 04/26/25 07:59 48 mg
DAILY HATTIE Administration
Furosemide 40 mg 03/29/25 08:00 03/29/25 16:31
Furosemide 40 Mg (10 Mg/Ml) 4 Ml Vial IV 04/26/25 07:59 Not Given
BID AT 0800,1600 HATTIE
Glucagon 1 mg 03/28/25 18:37
Glucagon 1 Mg Vial IM 04/25/25 18:36
PRN PRN
hypoglycemia
Protocol
Hydralazine HCl 25 mg 03/28/25 20:00 03/29/25 09:00
Hydralazine 25 Mg Tablet PO 04/25/25 19:59 25 mg
BID HATTIE Administration
Levothyroxine Sodium 75 mcg 03/29/25 06:00 03/29/25 05:26
Levothyroxine 75 Mcg Tablet PO 04/26/25 05:59 75 mcg
DAILY @ 0600 HATTIE Administration
Miconazole Nitrate 0 applic 03/29/25 08:00 03/29/25 09:14
Miconazole Powder Bottle TOPICAL 04/26/25 07:59 1 applic
BID HATTIE Administration
Nifedipine 30 mg 03/28/25 20:00 03/29/25 09:00
Nifedipine 30 Mg Extended Release Tablet PO 04/25/25 19:59 30 mg
BID HATTIE Administration
Sodium Chloride 0 flush 03/28/25 18:00
Sodium Chloride 0.9% (Flush) Syringe IV 04/25/25 17:59
PER PROTOCOL HATTIE
Tramadol HCl 25 mg 03/29/25 13:00 03/29/25 14:24
Tramadol Hcl 50 Mg Tablet PO 04/26/25 12:59 25 mg
BIDPRN PRN Administration
mod to severe pain
Home Medications
�Medication �Instructions �Recorded
apixaban 2.5 mg tablet (Eliquis) 2.5 mg PO BID Blood Clot 03/03/23
Prevention/Tx
carboxymethylcellulose sodium 0.5 1 drp BOTH EYES HS dry eyes ##0 03/03/23
% eye drops in a dropperette
cholecalciferol (vitamin D3) 125 125 mcg PO TH Supplement 03/03/23
mcg (5,000 unit) tablet (Vitamin
D3)
clonazepam 1 mg tablet 1 mg PO HS Mental Health/Anxiety 03/03/23
fenofibrate 160 mg tablet 160 mg PO DAILY High Cholesterol 03/03/23
hydralazine 25 mg tablet 25 mg PO BID Blood Pressure 03/03/23
polyethylene glycol 3350 17 gram 8.5 g PO DAILY Constipation 03/03/23
oral powder packet (Miralax)
nifedipine 30 mg tablet,extended 30 mg PO BID #60 tabs 03/06/23
release
furosemide 20 mg tablet (Lasix) 20 mg PO DAILY Fluid 07/08/23
Retention/Swelling
lovastatin 10 mg tablet 10 mg PO QPM High Cholesterol 07/08/23
therapeutic multivitamin 1 tab PO DAILY Supplement 07/08/23
carbidopa 25 mg-levodopa 100 mg 1 tab PO TID 30 days #0 tabs 04/05/24
tablet
doxycycline hyclate 100 mg capsule 100 mg PO BID Infection 03/28/25
levothyroxine 50 mcg tablet 75 mcg PO DAILY Thyroid 03/28/25
tramadol 50 mg tablet 25 mg PO Q8HPRN PRN moderate pain 03/28/25
zinc oxide 12 % topical cream 1 applic topical BID buttock 03/28/25
(Luna Protect (zinc oxide))
Vital Signs and Labs
-
Vital Signs and Labs:
Vital Signs
Temp Pulse Resp BP Pulse Ox
36.7 C 64 16 92/50 89
03/29/25 16:06 03/29/25 16:06 03/29/25 16:06 03/29/25 16:31 03/29/25 16:06
Lab Results
03/29/25 06:28
03/29/25 06:28
Sodium 143 mmol/L (135-145) 03/29/25 06:28
Potassium 4.3 mmol/L (3.5-5.1) 03/29/25 06:28
BUN 59 mg/dl (7-17) H 03/29/25 06:28
Glucose 60 mg/dl (70-99) L 03/29/25 06:28
Calcium 9.5 mg/dl (8.4-10.2) 03/29/25 06:28
Hjf-N-Lzvjebuwdji Pept 2230 pg/ml 03/28/25 14:46
--- NOTE | 2025-03-29 17:13 | CON.CAR ---
Addendum entered and electronically signed by Angel Vences MD 03/29/25 17:49:
I reviewed and agree with the note by WALKER and it accurately reflects our care.
I saw and evaluated the patient, and I provided the substantive portion of the medical decision making. My assessment and plan is below:
84-year-old female with lymphedema, hypertension, CKD, and aortic stenosis who presents with change in mental status found to be hypothermic (unclear etiology). She also has lower extremity edema for which an echocardiogram was ordered. This
showed severe mitral regurgitation, severe tricuspid regurgitation, normal LVEF, mild , mild AR for which cardiology is consulted. Patient is not a good historian but endorses that she was brought here for hypothermia. She is complaining of pain
in her buttocks. She denies shortness of breath, chest pain, or worsening lower extremity edema. Is mostly bedbound. Weight is stable from her last admission.
Physical exam: RRR, systolic murmur, decreased breath sounds bilaterally, chronic appearing lower extremity edema
CXR from 03/28: No acute abnormality; no significant pulmonary edema by my review
Mixed valvular disease: Severe mitral regurgitation and severe tricuspid regurgitation by echocardiogram this admission. Difficult to tell if she is symptomatic. CXR clear. Weight stable from last admission 1 yr ago. Continue IV diuresis.
Reassess with limited TTE once euvolemic.
Remainder as per WALKER note. We will follow along.
Original Note:
Consultation
Consultation Request
Date/Time Consultation Requested: 03/29/2025 16:41
Date/Time Consultation Performed: 03/29/2025 16:50
Requesting Provider: Dr. Tripathi
Performing Provider: WALKER Locke for Dr. Vences
Reason for Consultation: Abnormal echocardiogram
Medical History
-
Chief Complaint: Change in mental status
History of Present Illness:
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
to the emergency department with a chief complaint and change in mental status. She resides at [facility]. Upon arrival, she was found to be hypothermic with a core temperature of 90.6 �F. An echocardiogram was ordered by the primary
service. She was found to have severe mitral regurgitation and tricuspid regurgitation prompting cardiology evaluation. She denies chest pain, dizziness, and shortness of breath. She does endorse fatigue and worsening edema.
Past Medical History
Past Medical History: HTN, Hypercholesterolemia, Renal Failure (CKD stage 3b) and Other (PE, parkinsonism)
Social History
Tobacco: Non-Smoker
Alcohol: None
Drug: None
Living: Assisted Living
Employment: Retired
Family History
Family History: Reviewed & Not Pertinent
Allergies / Home Medications
Allergy/AdvReac Type Severity Reaction Status Date / Time
codeine Allergy Nausea Verified 08/13/23 15:43
erythromycin base Allergy Unknown Verified 03/27/24 18:34
ondansetron Allergy Unknown Verified 08/13/23 15:43
Penicillins Allergy Unknown Verified 08/13/23 15:43
prochlorperazine (From Allergy Unknown Verified 08/13/23 15:43
Compazine)
sertraline Allergy Nausea Verified 08/13/23 15:43
�Medication �Instructions �Recorded �Confirmed �Type
apixaban 2.5 mg tablet (Eliquis) 2.5 mg PO BID Blood Clot 03/03/23 03/28/25 History
Prevention/Tx
carboxymethylcellulose sodium 0.5 1 drp BOTH EYES HS dry eyes ##0 03/03/23 03/28/25 History
% eye drops in a dropperette
cholecalciferol (vitamin D3) 125 125 mcg PO TH Supplement 03/03/23 03/28/25 History
mcg (5,000 unit) tablet (Vitamin
D3)
clonazepam 1 mg tablet 1 mg PO HS Mental Health/Anxiety 03/03/23 03/28/25 History
fenofibrate 160 mg tablet 160 mg PO DAILY High Cholesterol 03/03/23 03/28/25 History
hydralazine 25 mg tablet 25 mg PO BID Blood Pressure 03/03/23 03/28/25 History
polyethylene glycol 3350 17 gram 8.5 g PO DAILY Constipation 03/03/23 03/28/25 History
oral powder packet (Miralax)
nifedipine 30 mg tablet,extended 30 mg PO BID #60 tabs 03/06/23 03/28/25 Rx
release
furosemide 20 mg tablet (Lasix) 20 mg PO DAILY Fluid 07/08/23 03/28/25 History
Retention/Swelling
lovastatin 10 mg tablet 10 mg PO QPM High Cholesterol 07/08/23 03/28/25 History
therapeutic multivitamin 1 tab PO DAILY Supplement 07/08/23 03/28/25 History
carbidopa 25 mg-levodopa 100 mg 1 tab PO TID 30 days #0 tabs 04/05/24 03/28/25 Rx
tablet
doxycycline hyclate 100 mg capsule 100 mg PO BID Infection 03/28/25 03/28/25 History
levothyroxine 50 mcg tablet 75 mcg PO DAILY Thyroid 03/28/25 03/28/25 History
tramadol 50 mg tablet 25 mg PO Q8HPRN PRN moderate pain 03/28/25 03/28/25 History
zinc oxide 12 % topical cream 1 applic topical BID buttock 03/28/25 03/28/25 History
(Luna Protect (zinc oxide))
Review of Systems
-
History Source: Patient
All other systems: Negative unless noted
Constitutional: Fatigue
EENT: No Symptoms
Respiratory: No Symptoms
Cardiac: No Symptoms
Abdomen/GI: Anorexia
: No Symptoms
Musculoskeletal: Edema
Skin: No Symptoms
Neurological: Weakness
Endocrine: No Symptoms
Hematologic/Lymphatic: No Symptoms
Physical Exam
Vital Signs
Temp Pulse Resp BP Pulse Ox
98.1 F 64 16 92/50 89
03/29/25 16:06 03/29/25 16:06 03/29/25 16:06 03/29/25 16:31 03/29/25 16:06
Lab Results
03/29/25 06:28
03/29/25 06:28
Yhk-G-Zatrxkrocvm Pept 2230 pg/ml 03/28/25 14:46
Physical Exam
General: Well Developed, Well Nourished, No Apparent Distress and Comfortable
HEENT: Normocephalic, Anicteric and Moist Mucous Membranes
Respiratory: Clear and Non Labored Respirations
Cardiac: S1/S2, Regular Rhythm and Murmur (III/)
Breast: Deferred by me
GI: Soft, Non Tender, Non Distended and Normal Bowel Sounds
Rectal: Deferred by Provider
Genito-urinary: No Costovertebral Tender
Musculoskeletal: No Clubbing, No Cyanosis and Edema
Skin: Dry
Neuro: Awake and Alert
Hematologic/Lymphatic: No Lymphadenopathy
Psych: Calm
Impression / Plan
-
I/P: 84F with chronic lower extremity lymphedema, HTN, CKD stage 3b, parkinsonism, prior PE (on apixaban), sinus bradycardia, LAFB, and aortic stenosis who presented to the emergency department with a chief complaint and change in mental status.
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 Scar Collins (last seen 04/2021)
Volume overload, acute on chronic
- Her lymphedema was maintained with furosemide 20 mg as an outpatient
- With significant valve disease as below (severe TR/MR)
- Continue diuresis, this requires intensive monitoring with her underlying kidney disease
CKD, stage IIIb, follow with diuresis
Hypoglycemia, in the setting of poor oral intake per family
Hypothermia, resolved
-Presented with a core temperature of 90.6 degrees.
- TSH, cortisol stable
Hypertension
- BP soft, holding parameters placed on hydralazine and nifedipine
Bradycardia, chronic
- AV prabhakar agents stopped by Dr. Collins in the past
Severe eccentric mitral regurgitation
Severe tricuspid regurgitation
Mild aortic stenosis, peak/mean gradients 27/16 mmHg, JOSE 1.6 cm2 with mild regurgitation
LAFB, chronic
Prior PE, on apixaban 2.5 mg twice daily
Obesity, BMI 40.5
Data Reviewed
-
EKG: Report Reviewed by me
Radiology: Report Reviewed by me
Medical Tests (Nuc Med, Echo etc): Report Reviewed by me
Labs: Labs Reviewed by me
Old Records: Reviewed
[2025-03-29 18:09] LABS: Glucose - Point of Care 72 mg/dl (70-99)
[2025-03-29] MEDS: PROCARDIA XL (EXTENDED RELEASE) PO (21:00)
[2025-03-29] MEDS: APRESOLINE PO (21:00)
[2025-03-29] MEDS: KLONOPIN 1 MG PO (21:06)
[2025-03-29 21:24] LABS: Glucose - Point of Care 80 mg/dl (70-99)
--- NOTE | 2025-03-29 21:57 | W.PN.UPDATE ---
Update Note
Progress Note Update
~ 21:30 Patient seen for rapid response on [facility]. Increased O2 needs, dropped to 87% on 6L NC. Pt vital signs: BP 94/42, HR 65.
Patient alert, answers questions appropriately. She does not appear to have increased work of breathing. Respiratory at bedside.
Unable to maintain O2 sat, placed on non-rebreather w/6L NC.
CBC similar to earlier, CMP (Creatinine 1.6), PTT, PT/INR, Troponin 22.70, ABG (pH 7.41, pCO2-51, pO2-67, HCO3-32.3), stat CXR ordered, showed interstitial and airspace opacities may reflect pulmonary interstitial edema and/or pneumonitis/pneumonia.
Cannot rule out developing ARDS.
Pt retaining urine, failed voiding trial. Order placed to schilling.
Pt did not receive Lasix due to hypotension, gave Lasix 40 mg IV x 1, BP 113/52, HR60, 91% on non-rebreather.
Transferred to IMU due to respiratory status and possible need for blood pressure support. Schilling catheter output, 550 mls measured. On transfer to IMU, pt required hi-guillermo O2 50L/100% and started on Levophed for hypotension.
TT'd on-call Cardiology, Dr. Knight for elevated troponin. Started on heparin gtt, repeat Troponin ordered. No other orders at this time, per Cardiology.
Called and spoke to daughter, Catalina Baird, to update on events and transfer to higher level of care. Daughter expressed understanding and questions answered.
~ 3 am Called and spoke to daughter regarding elevated troponin, starting heparin gtt, and let her know spoke with on-call Cardiology, Dr. Knight.
Patient also with increased O2 needs, on hi guillermo NC, 100%, 50L with non-rebreather. Patient is coarse through-out, sounds wet. Considered transfer to higher level of care for NIV, however, patient O2 sat is holding around 90-92% on hi guillermo with
non-rebreather. Spoke with ICU PRESS ROOM SUPERVISOR and overnight Hospitalist. Ordered Lasix 60 mg IV x 1 at 4 am. Monitor output. Monitor respiratory status, low threshold to transfer to ICU for NIV.
~ 5:30 Pt O2 sat in the 70's, maxed on hi-guillermo with non-rebreather. Respiratory at bedside, NIV ordered, transfer to ICU. ICU PRESS ROOM SUPERVISOR, Angus at bedside, he called family to update on events and transfer to ICU.
[2025-03-29 22:23] LABS: B.E. 6.5 mmol/L; HCO3 32.3 mmol/L (21-28); O2 Saturation % 94.1 % (94-98); PCO2 51 mmHg (32-35); PO2 67 mmHg (83-108)
[2025-03-29 22:23] LABS: Hematocrit 30.6 % (37.0-47.0); Hemoglobin 9.9 g/dL (12.0-16.0); Mean Corp Hgb Conc. 32.4 g/dL (33.0-37.0); Mean Corpuscular Volume 84.3 fL (81.0-99.0); Platelet Count 158 10^3/uL (130-400); Red Cell Dist. Width 17.4 % (11.5-14.5)
[2025-03-29 22:30] LABS: INR 1.40; PT 17.4 Sec (11.4-14.6)
[2025-03-29 22:31] LABS: APTT 46.4 Sec (23.4-35.0)
[2025-03-29 22:32] LABS: ALT (SGPT) < 10 U/L (0-35); AST (SGOT) 165 U/L (14-36); Albumin 3.4 g/dl (3.5-5.0); Alkaline Phosphatase 54 U/L (38-126); Blood Urea Nitrogen 67 mg/dl (7-17); Calcium 9.7 mg/dl (8.4-10.2); Carbon Dioxide 30 mmol/L (22-30); Chloride 105 mmol/L (98-107); Estimated Creatinine Clearance 32 ml/min; Glucose 75 mg/dl (70-99); Potassium 4.9 mmol/L (3.5-5.1); Sodium 140 mmol/L (135-145); Total Protein 6.1 g/dl (6.3-8.2); eGFR 31.80
[2025-03-29 22:50] LABS: Troponin I 22.700 ng/ml
--- NOTE | 2025-03-29 22:50 | PTCARENOTE ---
received pt from [facility] RN @ 22:30 on 15L NRB. Respiratory therapist at bedside, pt placed on HFNC 50L 100%, SaO2 94%. B/L crackles throughout. Cisse placed, initial output 550ml yellow urine.
[2025-03-29] MEDS: HEPARIN 25000 UNITS/250 ML IV (23:31)
--- NOTE | 2025-03-29 23:56 | RR ---
A Rapid Response was called on this patient, please see Rapid Response form.
Pct notified this RN as well as day shift RN of low O2 when taking 19:00 vitals on this Pt. At this time Pt was on room air. This RN and day shift RN entered the room at this time placing Pt on 3L while instructing her to breath through her nose.
Pt O2 alex to 98 at this time. This RN informed 16:00 Lasix held due to BP of 92/50, day shift RN was also instructed to remove Pt's Cisse that was placed in ED. 20:00 hydralazine and Nifedipine held due to BP of 94/42. At approximally 21:30 PCT
rechecked O2 with a result of 88, he then notified this RN. This RN was with another Pt so 2 other RN's assisted and went to assess Pt noting crackles throughout lungs.O2 would not rise above 89 despite being increased to 6L on n/c. DIRECTOR OF EMPLOYER SERVICES notified
and rapid response called. DIRECTOR OF EMPLOYER SERVICES on floor Pt's BP 119/55 and this RN instructed to give IV Lasix. Respiratory on floor and placed Pt on non rebreather. Pt bladder scanned resulting >438ml. Pt transferred to IMU at this time. This RN transferred Pt
and gave bedside report to IMU RN, all belongings transferred with Pt.
[2025-03-30] VITALS (26 sets, daily range): BP systolic 84–126; BP diastolic 47–73; BMI 38.4
[2025-03-30] MEDS: LEVOPHED 250 IV (00:05)
--- NOTE | 2025-03-30 00:15 | PTCARENOTE ---
Troponin result 22.7. Heparin gtt ordered, hung at 23:31 @10ml/hr initial rate. BP soft, MAP 61. Levo ordered to keep MAP > 65. Levo hung at 00:05 @2mcg/min.
--- NOTE | 2025-03-30 01:36 | PTCARENOTE ---
Respiratory weaned HFNC to 50L 70%. Pt SaO2 noted to be 84%, respiratory notified via tiger text. RT at bedside to adjust settings.
--- NOTE | 2025-03-30 02:05 | PTCARENOTE ---
Pt on HFNC 50L 100% with 15L NRB. SaO2 92%. Does not appear to be in significant distress. Shallow breaths, poor effort. Still presents with wet cough and crackles throughout. PRODUCTION CONTROL TECHNOLOGIST notified.
[2025-03-30 03:38] LABS: Glucose - Point of Care 77 mg/dl (70-99)
[2025-03-30] MEDS: LASIX 60 MG IV (03:39)
--- NOTE | 2025-03-30 03:50 | PTCARENOTE ---
Pt SaO2 83% on HFNC 50L 100% and 15L NRB. CHEMICALS DISTILLER notified, came up to bedside. RT at bedside. Orders placed for stat IV lasix. 60mg IV lasix given at 03:39.
[2025-03-30] MEDS: SYNTHROID PO (04:46)
[2025-03-30 05:27] LABS: APTT 129.4 Sec (23.4-35.0)
--- NOTE | 2025-03-30 05:40 | PTCARENOTE ---
PTT 129.4. Heparin gtt decreased by 1ml/hr per protocol. Heparin currently running at 9ml/hr. Next PTT to be drawn at 11:30
[2025-03-30 05:47] LABS: Troponin I 55.800 ng/ml
--- NOTE | 2025-03-30 05:56 | W.PN.UPDATE ---
Update Note
Progress Note Update
Updated daughter on transfer to ICU for NIV for acute hypoxic respiratory failure. Daughter agreeable, but does not want patient intubated. Patient is a DNR.
--- NOTE | 2025-03-30 06:00 | PTCARENOTE ---
pt tx to ICU from IMU at this time. pt arrives on 100% NIV, Sat 86%, gradually up to 94%. SB-SR 50s-60s. LA IV x 2 WNL- Levo/Heparin gtt infusing per work list. R temp 97.9F. CHG cloths. labs sent. care ongoing.
[2025-03-30 06:09] LABS: Blood Urea Nitrogen 69 mg/dl (7-17); Calcium 9.5 mg/dl (8.4-10.2); Carbon Dioxide 26 mmol/L (22-30); Chloride 107 mmol/L (98-107); Estimated Creatinine Clearance 29 ml/min; Glucose 76 mg/dl (70-99); Potassium 4.4 mmol/L (3.5-5.1); Sodium 142 mmol/L (135-145); eGFR 29.57
--- NOTE | 2025-03-30 06:12 | PTCARENOTE ---
Pt sao2 75% on HFNC 50L 100% and NRB. GROUND NUCLEAR WEAPONS ASSEMBLY OFFICER at bedside, RT at bedside. Pt placed on non invasive ventilation by RT. Pt transferred to ICU. Lab called, requested to add on liver panel to already drawn BMP. Lactic ordered.
[2025-03-30 06:21] LABS: Glucose - Point of Care 291 mg/dl (70-99)
--- NOTE | 2025-03-30 07:19 | CON.INTV ---
Consultation
Consultation Request
Date/Time Consultation Requested: 03/30/2025
Date/Time Consultation Performed: 03/30/2025
Medical History
-
Chief Complaint: Shortness of breath
History of Present Illness:
Patient is a 84-year-old female who was brought to the hospital on 03/28 for confusion. Patient has history of hypertension, hyperlipidemia, lower extremity lymphedema as well as chronic kidney disease stage III with parkinsonism. Patient
reportedly was noted to be volume overloaded and was started on diuresis. He was she was evaluated by cardiology service earlier during this admission. On 03/29, patient has started to develop increasing shortness of breath. Follow-up chest x-ray
performed on 03/29 showed worsening pulmonary opacities suggestive of pulmonary edema. Overnight patient continued to decline and was transferred to ICU due to worsening hypoxic respiratory failure. She was initially transition to high flow oxygen
and subsequently switched to noninvasive positive pressure ventilation. Operations Trainer consultation was requested for further input. Patient also noted to have significantly elevated troponin and was started on heparin infusion.
Past Medical History
Past Medical History: Reports Other
Additional Past Medical History:
Parkinsonism
Essential Hypertension
Hyperlipidemia
Chronic Lower Extremity Lymphedema
CKD Stage IIIB
Hypothyroidism
Thormboembolic Disease
Past Surgical History: Reports Other
Additional Past Surgical History:
Hysterectomy
Cholecystectomy
Social History
Tobacco: Non-smoker
Alcohol: None
Drug: None
Living: Assisted Living ([facility])
Family History
Family History: Not pertinent
Allergies / Home Medications
Allergies
Allergy/AdvReac Type Severity Reaction Status Date / Time
codeine Allergy Nausea Verified 08/13/23 15:43
erythromycin base Allergy Unknown Verified 03/27/24 18:34
ondansetron Allergy Unknown Verified 08/13/23 15:43
Penicillins Allergy Unknown Verified 08/13/23 15:43
prochlorperazine (From Allergy Unknown Verified 08/13/23 15:43
Compazine)
sertraline Allergy Nausea Verified 08/13/23 15:43
Home Medications
�Medication �Instructions �Recorded �Confirmed �Last Taken �Type
apixaban 2.5 mg tablet (Eliquis) 2.5 mg PO BID Blood Clot 03/03/23 03/28/25 03/02/23 History
Prevention/Tx
carboxymethylcellulose sodium 0.5 1 drp BOTH EYES HS dry eyes ##0 03/03/23 03/28/25 03/02/23 History
% eye drops in a dropperette
cholecalciferol (vitamin D3) 125 125 mcg PO TH Supplement 03/03/23 03/28/25 03/02/23 History
mcg (5,000 unit) tablet (Vitamin
D3)
clonazepam 1 mg tablet 1 mg PO HS Mental Health/Anxiety 03/03/23 03/28/25 03/02/23 History
fenofibrate 160 mg tablet 160 mg PO DAILY High Cholesterol 03/03/23 03/28/25 03/02/23 History
hydralazine 25 mg tablet 25 mg PO BID Blood Pressure 03/03/23 03/28/25 03/02/23 History
polyethylene glycol 3350 17 gram 8.5 g PO DAILY Constipation 03/03/23 03/28/25 03/02/23 History
oral powder packet (Miralax)
nifedipine 30 mg tablet,extended 30 mg PO BID #60 tabs 03/06/23 03/28/25 Unknown Rx
release
furosemide 20 mg tablet (Lasix) 20 mg PO DAILY Fluid 07/08/23 03/28/25 Unknown History
Retention/Swelling
lovastatin 10 mg tablet 10 mg PO QPM High Cholesterol 07/08/23 03/28/25 Unknown History
therapeutic multivitamin 1 tab PO DAILY Supplement 07/08/23 03/28/25 Unknown History
carbidopa 25 mg-levodopa 100 mg 1 tab PO TID 30 days #0 tabs 04/05/24 03/28/25 Unknown Rx
tablet
doxycycline hyclate 100 mg capsule 100 mg PO BID Infection 03/28/25 03/28/25 Unknown History
levothyroxine 50 mcg tablet 75 mcg PO DAILY Thyroid 03/28/25 03/28/25 Unknown History
tramadol 50 mg tablet 25 mg PO Q8HPRN PRN moderate pain 03/28/25 03/28/25 Unknown History
zinc oxide 12 % topical cream 1 applic topical BID buttock 03/28/25 03/28/25 Unknown History
(Luna Protect (zinc oxide))
Review of Systems
-
Hematologic/Lymphatic: Other (Patient on BiPAP, continues to report shortness of breath)
Vitals / Labs / Diagnostic Testing
Vital Signs
Temp Pulse Resp BP Pulse Ox
97.9 F 56 25 119/51 92
03/30/25 06:00 03/30/25 06:15 03/30/25 06:15 03/30/25 06:15 03/30/25 06:27
Lab Data
03/29/25 23:20
03/30/25 05:42
Laboratory Results
03/29/25 03/29/25 03/30/25
22:08 22:13 04:57
PT 17.4 H
INR 1.40
APTT 46.4 H 129.4 H
pH 7.41
pCO2 51 H
pO2 67 L
HCO3 32.3 H
O2 Delivery Level
Microbiology
03/28/25 14:52 Blood/Venous Blood Culture - Preliminary
No Growth in 24 hours- Final report to follow
03/28/25 14:46 Blood/Venous Blood Culture - Preliminary
No Growth in 24 hours- Final report to follow
03/28/25 14:52 Nasal Swab Influenza Types A & B ([place]) - Final
Negative for Influenza A & B, NAAT
Negative results must be combined with clinical observations
and patient history.
Nucleic Acid Amplification test (NAAT)performed on the
[employer] platform.
Diagnostic Testing:
Physical Exam
-
HEENT: Normocephalic
Cardiovascular: S1/S2 (Tachycardic) and Peripheral Edema
Respiratory: Rales, Rhonchi and Accessory Resp Muscle Use
GI: Soft and Non Distended
Neurology: Awake
General: Respiratory Distress
Assessment
-
#1. Acute hypoxic respiratory failure with pulmonary edema
- Chest x-ray reviewed, diffuse increased interstitial opacity highly suggestive of pulmonary edema
- Influenza A, B, COVID-19 screen negative. Blood cultures have stayed negative. Patient is afebrile, normal WBC count, presentation not suggestive of infection
- Significantly elevated troponin noted along with severe mitral regurgitation and elevated BNP of 5770
- Continue BiPAP support, IV diuresis. Cardiology service on case
#2. NSTEMI
- Give aspirin stat, continue heparin infusion
- Cardiology consult
#3. Pulmonary HTN
- Pulmonary artery systolic pressure around 63 on echo with severe tricuspid regurgitation. Mild RV dilation noted.
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
Other medical diagnoses:
- Parkinsonism
- HLD
- Hypothyroidism
- Anxiety
- h/o VTE
Goals of care discussion 03/30. Met with patient's son and daughter in law. Patient and family aligned with goals of care to pursue comfort focused care only. Patient and family does not want to consider intubation, cardiac catheterization and
mechanical devices for heart failure. Patient and family ready to transition to morphine use for dyspnea. Patient clearly uncomfortably on BIPAP and reports ongoing difficulty breathing.
-Transition to comfort focused care only.
Critical Care time 65 mins -- The patient is admitted for acute critical illness for the treatment of vital organ failure and/or prevention of further life-threatening conditions. Total care includes time spent in review of history, physical exam,
medications, hemodynamic/ventilator parameters, laboratory data, imaging and discussion with house staff, pharmacy, respiratory therapy, visual merchandising director, and nursing.
Data:
ECHO 03/2024: 1. Left ventricle is mildly dilated with normal systolic function and moderate LVH. LVEF 58%.
2. Mildly dilated right ventricle with normal systolic function.
3. Severe biatrial enlargement.
4. Mild aortic stenosis. Mild aortic regurgitation.
5. Severe eccentric mitral regurgitation.
6. Severe tricuspid regurgitation. PASP 63 mmHg.
7. Dilated ascending aorta (4.0 cm)
8. No prior study available for comparison.
[2025-03-30] MEDS: LASIX 40 MG IV (07:23)
[2025-03-30] MEDS: TYLENOL PO (07:50)
[2025-03-30] MEDS: SINEMET 25-100 PO (07:50)
[2025-03-30] MEDS: TRICOR PO (07:50)
[2025-03-30] MEDS: MORPHINE SULFATE 2 MG IV (07:51)
--- NOTE | 2025-03-30 08:28 | W.PN.CD ---
Today's Communication / Plan
-
Agree with transition to comfort care
Impression / Plan
-
I/P: 84F with chronic lower extremity lymphedema, HTN, CKD stage 3b, parkinsonism, prior PE (on apixaban), sinus bradycardia, LAFB, and aortic stenosis who presented to the emergency department with a chief complaint and change in mental status.
Primary yarn wrapper: Dr. Scar Collins (last seen 04/2021)
Acute hypoxic respiratory failure
- Patient is requiring BiPAP, saturations still in the 80s despite 100% FiO2
- CXR consistent with ARDS
- Per critical care team, patient is transitioning to comfort care
Elevated troponin
- Troponin up to 55. No chest pain or ECG changes. Unclear etiology. Type I NSTEMI versus type II HI from demand in the setting of acute hypoxic respiratory failure
- Initially started on heparin for medical management
- Will stop medical therapy now that patient is transitioning to comfort care
Volume overload, acute on chronic
- Her lymphedema was maintained with furosemide 20 mg as an outpatient
- With significant valve disease as below (severe TR/MR)
CKD, stage IIIb
Hypoglycemia, in the setting of poor oral intake per family
Hypothermia, resolved
-Presented with a core temperature of 90.6 degrees.
- TSH, cortisol stable
Hypertension
Bradycardia, chronic
- AV prabhakar agents stopped by Dr. Collins in the past
Severe eccentric mitral regurgitation
Severe tricuspid regurgitation
Mild aortic stenosis, peak/mean gradients 27/16 mmHg, JOSE 1.6 cm2 with mild regurgitation
LAFB, chronic
Prior PE, on apixaban 2.5 mg twice daily
Obesity, BMI 40.5
CCT prior to patient transitioning to comfort care: 35 minutes
Last night patient had an episode of respiratory distress and hypoxia. Ultimately required transfer to ICU for BiPAP. CXR showed worsening bilateral infiltrates concerning for possible ARDS. She was given Lasix. Labs checked during MEDICAL RESEARCH ASSOCIATE revealed
troponin of 22 which has now increased to 55. She denies chest pain. ECG is stable showing normal sinus rhythm with first-degree AV block and bifascicular block. No evidence of ischemia.
Physical Exam
Vital Signs/Labs
Vital Signs
Temp Pulse Resp BP Pulse Ox
97.5 F 56 25 119/51 90
03/30/25 07:28 03/30/25 06:15 03/30/25 06:15 03/30/25 06:15 03/30/25 08:19
03/29/25 03/30/25 03/31/25
06:59 06:59 06:59
Actual Weight 225 lb 223 lb 8.78 oz
03/29/25 23:20
03/30/25 05:42
PT 17.4 Sec (11.4-14.6) H 03/29/25 22:08
INR 1.40 03/29/25 22:08
APTT 129.4 Sec (23.4-35.0) H 03/30/25 04:57
Free T4 1.61 ng/dl (0.78-2.19) 03/29/25 06:28
03/28/25 03/30/25 03/30/25
14:46 04:57 06:10
Cgr-P-Ghsztfexifk Pept 2230 5770 Cancelled
LAB Results
03/29/25 03/30/25
22:08 04:57
Troponin I 22.700 H* 55.800 H* D
Physical Exam
Constitutional: Other (on BiPAP, no acute distress, but uncomfortable appearing)
Cardiovascular: Rhythm & rate is regular, Pedal edema present and Systolic murmur present
Respiratory: Other (on BiPAP)
Data Reviewed
-
Date of Service: March 30, 2025
Medical Decision Making: Reviewed Test Results, Independent Historian Assessment, Test Interpretation and Review of Case with other Provider
EKG: Tracing Personally Visualized and interpreted
Echo: Report Reviewed by me
X-Ray/CT/US/MRI/NUC/PET: Image Personally Visualized and interpreted
Labs: Labs Reviewed by me
[2025-03-30] MEDS: VALIUM INJECTION 5 MG IV (08:46)
--- NOTE | 2025-03-30 09:30 | PTCARENOTE ---
Per family, pt stated, 'I want to go' and requesting oxygen be removed. notified. Comfort care initiated. Pt became unresponsive and agonal shortly after O2 removed. Pt passed with family at bedside. LIBERTY notified of .
--- NOTE | 2025-03-30 09:51 | W.PN.HOSP.TC ---
Today's Communication/Plan
-
c/w supportive care and f/w cardiology/ ICU doctors recommendations
DNR/DNI
Assessment / Plan
Assessment / Plan
Physical Exam
General: in respiratory distress
HEENT: Bi pap mask on
Respiratory: rales with Labored Respirations
Cardiac: S1/S2, tachycardia
Breast: Other (Dime sized wound located under left breast without small amount of surrounding erythema, no purulent drainage noted; Compared to pictures taken by daughter last week area is improving)
GI: Soft and Non Tender
Genito-urinary:off Cisse, no hematuria
Musculoskeletal: Bilateral lower extremities wrapped in MYRNA with significant edema/ erythema)
Skin: stage II buttock pressure ulcer POA
Neuro: Awake, but restless , answering questions
Psych: restless
# Acute hypoxic respiratory failure on Bi pap
Not tolerating the mask with profound hypoxia
Pt remains DNR/ DNI, wishing to remove the mask and pursue comfort care
# Acute cardiogenic pulmonary edema
# Type I NSTEMI
# Severe valvular heart disease/ Severe MR & TR
# Cardiogenic shock
Patient became hypoxic with respiratory distress. Transferred to ICU. Received oxygen treatment, pressure support, Lasix treatment, intravenous heparin and antiplatelet therapy.
Patient had expressed her wishes to remain DO NOT RESUSCITATE/DO NOT INTUBATE. Also expressed wishes to the staff to peacefully
Family at bedside and leaning toward comfort care. ICU and cardiology doctors are following the patient
#stage II buttock pressure ulcer POA
Consulted wound care
Parkinsonism
PT was on carbidopa/levodopa, seen by neurology.
# Mild TME on admission, resolved, became lucid and fully oriented.
# Essential Hypertension
# Hyperlipidemia
# Acute on CKD Stage IIIB/ IV
##Hypothyroidism
-Continue levothyroxine
#Anxiety
-Continue clonazepam
#Hx Thromboembolic Disease
off oral Eliquis while on IV Heparin gtt.
Code Status: DNR
Total time spent to see the patient, examine the patient, review data and lab result, discuss treatment plan with patient, nursing staff around 63 minutes
Anticipated Discharge: > 48 hours
Subjective/Interval History
-
Date of Service: March 30, 2025
events over night noted and reviewed with night teams
Family at bed side in ICU
Pt is struggling withhypoxia/ respiratory distress, refusing oxygen mask.
Objective Data
-
Labs:
Laboratory Results
03/29/25 03/29/25 03/29/25
22:08 22:13 23:20
WBC 5.9 Cancelled
Hgb 9.9 L Cancelled
Hct 30.6 L Cancelled
Plt Count 158 Cancelled
PT 17.4 H
INR 1.40
APTT 46.4 H
HCO3 32.3 H
Sodium 140
Potassium 4.9
Chloride 105
Carbon Dioxide 30
BUN 67 H
Creatinine 1.6 H
Glucose 75
Calcium 9.7
Total Bilirubin 0.7
AST 165 H
ALT < 10
Alkaline Phosphatase 54
03/30/25 03/30/25 03/30/25
04:57 05:00 05:42
WBC
Hgb
Hct
Plt Count
PT
INR
APTT 129.4 H
HCO3
Sodium 142 Cancelled
Potassium 4.4 Cancelled
Chloride 107 Cancelled
Carbon Dioxide 26 Cancelled
BUN 69 H Cancelled
Creatinine 1.7 H Cancelled
Glucose 76 Cancelled
Calcium 9.5 Cancelled
Total Bilirubin Pending
AST Pending
ALT Pending
Alkaline Phosphatase Pending
03/30/25 03/30/25
06:10 11:30
WBC
Hgb
Hct
Plt Count
PT
INR
APTT Pending
HCO3
Sodium
Potassium
Chloride
Carbon Dioxide
BUN
Creatinine
Glucose
Calcium
Total Bilirubin Cancelled
AST Cancelled
ALT Cancelled
Alkaline Phosphatase Cancelled
Vital Signs:
Vital Signs
Temp Pulse Resp BP Pulse Ox
97.5 F 56 25 119/51 90
03/30/25 07:28 03/30/25 06:15 03/30/25 06:15 03/30/25 06:15 03/30/25 08:19
I&O
03/29/25 03/30/25 03/31/25
06:59 06:59 06:59
Intake Total 480 / 480
Output Total 1500 / 1500 1000 / 1000 225 / 225
Balance -1500 / -1500 -520 / -520 -225 / -225
--- NOTE | 2025-03-30 09:51 | W.DCSUMMARY ---
Discharge Summary
Discharge Data
Date of Admission: 03/28/25
Date of Discharge: 03/30/25
-
Pending Results: No
Hospital Course
84 years old female presented to the hospital with history of progressive generalized weakness, increasing bilateral leg edema over the last a few days. Family also reported that patient seemed fatigued. No history of confusion although she
reported seeing ants in her apartment few days ago but family could not see that. No history of new medications. No history of fever or chills. EKG on admission did not show significant changes from a prior. Chest radiography did not show acute
findings. She did not have leukocytosis. She was found to have hypothermia in the ER. Patient was complaining of pain in her buttocks pressure injury. Patient was noted to have fungal infection in the groin folds and under her breasts. Patient
received intravenous diuretic for treatment of acute on chronic lymphedema. She was seen by neurologist.neurologist recommended to continue her Sinemet dose and she was noticed to have improving mentation. She had echocardiogram of the heart due
to history of worsening edema. Patient was found to have normal left ventricular ejection fraction around 58 % with severe mitral regurgitation/severe biatrial enlargement/severe tricuspid regurgitation. Log Haul Chain Feeder was consulted and recommended
to continue Lasix treatment. Patient was on chronic anticoagulation therapy for history of PE. Patient started to feel better and hypothermia resolved. Blood culture did not show any growth. She was given Tylenol and tramadol for pressure ulcer
pain and she was seen by wound care nurse. Later on, patient started to have shortness of breath. She subsequently went into acute respiratory distress/acute pulmonary edema with elevation in troponin. She was started on intravenous heparin and
was transferred to high-level care/ ICU. She had hypotension was started on pressure support medication. She was followed by cardiology and nurse anesthesia program director. She had persistent hypoxia and she was not tolerating BiPAP treatment. She wanted to remain
DO NOT RESUSCITATE/DO NOT INTUBATE. Family called and decided to pursue patient's wishes to convert to comfort care. Patient peacefully on 03/30 surrounded by her family.
Discharge Plan
-
Patient Disposition:
Date/Time
Date/Time: 03/30/25 09:02
Discharge Date and Time
Discharge Date/Time: 03/30/25 09:02
Print Language: TELUGU
--- NOTE | 2025-03-30 09:53 | PN.CDI ---
Addendum entered and electronically signed by Fatou Tripathi MD 03/30/25 11:39:
acute HF with preserved EF
Original Note:
CDI
- -
CDI:
Physician Documentation Request
Admit Date: 03/28/25 17:26
Dear Doctor Bhumi,
Patient presented to ED for evaluation of decreased level of consciousness, peripheral edema. 3+ edema was present on exam.
H&P states 'Acute Volume Overload, patient with worsening lower extremity lymphedema with concern for new heart failure'
BNP on presentation 2230
IV Lasix was administered.
03/29 confirmed echo shows an EF 58 %
Please clarify:
heart failure (please specify type and acuity)
acute volume overload only
Other
Use of terms such as suspected, likely, concern for, or probable (associated with a specific diagnosis that is being evaluated, monitored, or treated as if it exists) are acceptable and can be coded in the inpatient setting, when documented at the
time of discharge.
Thank you,
Tonya Haas RN,BSN
CDI Specialist
tiger text
Please use your independent medical judgment in providing your response.
--- NOTE | 2025-03-30 10:02 | W.PN.DEATH ---
Pronouncement of
-
Called to see patient to pronounce.
No spontaneous heart tones or respirations noted.
Patient not responsive to verbal stimuli.
Patient is pronounced .
Time of : 09:02
Date of : 03/30/25
Family Notified: Yes
--- NOTE | 2025-03-30 10:35 | CM ---
Patient on this date, 03/30/25 @ 09:02.
[2025-03-30 16:21] LABS: ALT (SGPT) 20 U/L (0-35); AST (SGOT) 344 U/L (14-36); Albumin 3.3 g/dl (3.5-5.0); Alkaline Phosphatase 53 U/L (38-126); Total Protein 5.8 g/dl (6.3-8.2)
--- NOTE | 2025-03-31 09:07 | PN.CDI ---
Addendum entered and electronically signed by Fatou Tripathi MD 03/31/25 09:32:
Already in the note
Ill reach out to you to clarify the question.
Original Note:
CDI
- -
CDI:
Physician Documentation Request
Admit Date: 03/28/25 17:26
Dear Doctor Bhumi,
Patient presented to ED for evaluation of decreased level of consciousness, peripheral edema.
Patient was treated with IV Lasix.
Creatinine results:
Laboratory Tests
03/28/25 03/29/25 03/30/25
14:46 06:28 05:00
Creatinine 1.3 H 1.4 H 1.7 H
Could you please provide a diagnosis that supports the above lab abnormalities and additional evaluation/ monitoring:
LUIS M
Elevation in creatinine clinically insignificant
Other
Use of terms such as suspected, likely, concern for, or probable (associated with a specific diagnosis that is being evaluated, monitored, or treated as if it exists) are acceptable and can be coded in the inpatient setting, when documented at the
time of discharge.
Thank you,
Tonya Haas RN, BSN
CDI Specialist
tiger text
Please use your independent medical judgment in providing your response.
== END 2025-03-30 09:02 | disposition expired ==
LOC: ICU 17:26
PROVIDERS: Nurse Practitioner Family; Nurse Practitioner Primary Care; Physician Assistant Medical; ADMITTING PHYSICIAN Internal Medicine; ATTENDING PHYSICIAN Internal Medicine; CONSULT PHYSICIAN Internal Medicine; CONSULT PHYSICIAN Psychiatry & Neurology Neurology; CONSULT PHYSICIAN Student in an Organized Health Care Education/Training Program; EMERGENCY PHYSICIAN Emergency Medicine; FAMILY PHYSICIAN Family Medicine
DX: I13.0 Hypertensive heart and chronic kidney disease with heart failure and stage 1 through stage 4 chronic kidney disease, or unspecified chronic kidney disease (principal); G92.8 Other toxic encephalopathy; I21.4 Non-ST elevation (NSTEMI) myocardial infarction; I50.31 Acute diastolic (congestive) heart failure; J96.01 Acute respiratory failure with hypoxia; N18.4 Chronic kidney disease, stage 4 (severe); M50.022 Cervical disc disorder at C5-C6 level with myelopathy; L89.312 Pressure ulcer of right buttock, stage 2; I95.9 Hypotension, unspecified; R68.0 Hypothermia, not associated with low environmental temperature; B35.6 Tinea cruris; E03.9 Hypothyroidism, unspecified; I08.3 Combined rheumatic disorders of mitral, aortic and tricuspid valves; I89.0 Lymphedema, not elsewhere classified; F41.9 Anxiety disorder, unspecified; Z66 Do not resuscitate; E78.00 Pure hypercholesterolemia, unspecified; R57.0 Cardiogenic shock; G20.A1 Parkinson's disease without dyskinesia, without mention of fluctuations; I27.20 Pulmonary hypertension, unspecified; Z79.890 Hormone replacement therapy; Z11.52 Encounter for screening for COVID-19; Z79.01 Long term (current) use of anticoagulants; Z79.899 Other long term (current) drug therapy; Z51.5 Encounter for palliative care; Z86.718 Personal history of other venous thrombosis and embolism; Z86.711 Personal history of pulmonary embolism
CPT/HCPCS: 36600; 71045; 80048; 80053; 81003; 81015; 82248; 82533; 82805; 82962; 83036; 83605; 83880; 84439; 84443; 84484; 85025; 85027; 85610; 85730; 87040; 87070; 87502; 87811; 93005; 93306; 94660; 96360; 97163; 99291